=== PATIENT | male | born 1965 | race Caucasian/White ===

== ENCOUNTER 2021-12-03 14:39 | Inpatient (IN) | payer OTHER ==
[2021-12-03] MEDS ORDERED: MORPHINE 4 MG/ML SYR ONE ×3 (15:57→18:43)
[2021-12-03] MEDS ORDERED: ONDANSETRON 4 MG/2 ML VIAL ONE (15:57)
[2021-12-03 16:16] LABS: Absolute Lymphocytes (CBC) 1.9 K/uL (0.7-4.9); Hematocrit 42.7 % (39.6-49.0); Lymphocytes % 23.9 % (15.3-44.8)
[2021-12-03 16:38] LABS: Albumin 3.9 g/dL (3.4-5.0); Bilirubin Total 0.5 mg/dL (0.2-1.0); Potassium 3.7 mmol/L (3.5-5.1); Protein, Total 7.5 g/dL (6.4-8.2)
[2021-12-03] MEDS ORDERED: NA CHLORIDE 0.9% 1,000 ML ONE (16:41)
--- NOTE | 2021-12-03 17:20 | RAD REPORT ---
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 No oral contrast administered. All CT scans are performed using dose optimization technique as appropriate and may include automated exposure control or mA/KV adjustment according to patient size. FINDINGS: No suspicious findings in the lung bases. Liver shows fatty infiltration with no suspicious liver lesion identifiable. No portal vein abnormali ty. Gallbladder and biliary tree show no suspicious findings. No pancreatic abnormality. No splenomeg walter. A 13 millimeter low-density area medial spleen is probably an incidental cyst. Delete select Symmetric renal function is seen with no hydronephrosis or suspicious renal mass. No pyelonephritis o r acute parenchymal process. No bladder abnormalities. No adrenal abnormalities. No gastric dilatation gastric wall thickening. No acute small bowel finding. Appendix is normal. No s ignificant diverticulosis. Along the posterior left margin of the anus there is a 20 x 13 millimeter low-density collection. No air in this collection. No measurable edema or stranding in the adjacent p erirectal and perineum fat. No free air, free fluid or pneumatosis. No mass or bulky lymphadenopathy . No suspicious bony findings. IMPRESSION: Approximately 20 x 13 mm sized perianal abscess left posterior margin
[2021-12-03] MEDS ORDERED: Levofloxacin500mg IV 500 MG/100 ML BAG IV ONE (18:08)
[2021-12-03] MEDS ORDERED: METRONIDAZOLE 500mg IVPB 500 MG/100 ML BAG IV ONE (18:08)
--- NOTE | 2021-12-03 18:30 | EDPHYS ---
Physician Documentation [facility] Name: Wolf Potter Age: 55 yrs Sex: Male : 1965 Arrival Date: 12/03/2021 Time: 15:16 Bed 12 Private MD: ED Physician Vini Cool HPI: 12/03 16:09 This 55 yrs old Male presents to ER via Ambulatory with complaints of Rectal Pain. pm1 16:09 The patient presents to the emergency department with pain in the rectal area. Onset: pm1 The symptoms/episode began/occurred 1 week(s) ago. Context: the patient has no known special context relating to the rectal area complaint(s). Modifying factors: The symptoms are alleviated by nothing, The symptoms are aggravated by bowel movement, sitting position. Associate signs and symptoms: Pertinent negatives: abdominal pain, constipation, dysuria, fever. The patient has experienced a previous episode, approximately 8 years ago. The patient has been recently seen by a physician: earlier today, with similar presenting complaints, and was sent to the [facility] Emergency Department for further evaluation, Seen at [facility]. Historical: - Allergies: 15:25 Codeine; ld1 - Home Meds: 15:25 pantoprazole 20 mg oral TbEC 1 tab once daily [Active]; atorvastatin 40 mg oral tab 1 ld1 tab once daily [Active]; meloxicam 7.5 mg oral tab 1 tab once daily [Active]; - PMHx: 15:25 Hypercholesterolemia; Arthritis; Fibromyalgia; ld1 - PSHx: 15:25 None; ld1 - Immunization history:: Adult Immunizations up to date, Client reports having NOT received the Covid vaccine. - Social history:: Smoking status: Patient reports the use of cigarette tobacco products, denies chronic smoking, but will smoke occasionally, Patient uses alcohol, occasionally. ROS: 16:09 Constitutional: Negative for fever, chills, and weight loss, Cardiovascular: Negative pm1 for chest pain, palpitations, and edema, Respiratory: Negative for shortness of breath, cough, wheezing, and pleuritic chest pain. 16:09 Back: Negative for injury and pain, MS/Extremity: Negative for injury and deformity, Skin: Negative for injury, rash, and discoloration, Neuro: Negative for headache, weakness, numbness, tingling, and seizure. 16:09 Abdomen/GI: Positive for rectal pain, Negative for abdominal pain, nausea, vomiting, and diarrhea, hematemesis, black/tarry stool, rectal bleeding. 16:09 All other systems are negative. Exam: 16:09 Constitutional: This is a well developed, well nourished patient who is awake, alert, pm1 and in no acute distress. Head/Face: Normocephalic, atraumatic. 16:09 Back: No spinal tenderness. No costovertebral tenderness. Full range of motion. Skin: Warm, dry with normal turgor. Normal color with no rashes, no lesions, and no evidence of cellulitis. MS/ Extremity: Pulses equal, no cyanosis. Neurovascular intact. Full, normal range of motion. 16:09 Cardiovascular: Exam negative for acute changes, Rate: normal, Rhythm: regular, Pulses: no pulse deficits are appreciated, Heart sounds: normal, normal S1and S2. 16:09 Respiratory: Exam negative for acute changes, respiratory distress, shortness of breath. 16:09 Abdomen/GI: Inspection: obese Palpation: abdomen is soft and non-tender, in all quadrants, Rectal exam: hemorrhoid(s), are not appreciated, mass, that is moderate-sized, with tenderness, present at 9 o'clock. Fistula scar present at 6 o'clock, tenderness, that is moderate, the exam is chaperoned by the nurse. 16:09 Neuro: Exam negative for acute changes, Orientation: is normal, Mentation: is normal, Motor: is normal, moves all fours. Vital Signs: 15:22 BP 163 / 102; Pulse 90; Resp 18; Temp 97.6(O); Pulse Ox 100% on R/A; Weight 104.33 kg; ld1 Height 5 ft. 10 in. (177.80 cm); Pain 7/10; 16:50 BP 153 / 88; Pulse 88; Resp 18; Pulse Ox 100% on R/A; em6 18:21 BP 168 / 79; Pulse 84; Resp 18; Pulse Ox 100% on R/A; em6 19:24 BP 148 / 82; Pulse 80; Resp 18; Pulse Ox 100% on R/A; em6 15:22 Body Mass Index 33.00 (104.33 kg, 177.80 cm) ld1 MDM: 15:17 Patient medically screened. pm1 18:08 ED course: Last ate food last night and drank coffee at 0630. pm1 18:08 Data reviewed: vital signs. Data interpreted: Pulse oximetry: on room air is 100 %. pm1 Interpretation: normal. 18:28 Physician consultation: Arthur Boogie MD was called at 18:28, was contacted at 18:28, pm1 regarding consult, patient's condition, would like admission per Dr. Art Romero MD in the emergency department to see patient at 18:28. 12/03 15:43 Order name: CBC with Diff; Complete Time: 16:34 pm1 12/03 15:43 Order name: CMP; Complete Time: 16:42 pm1 12/03 15:43 Order name: Lipase; Complete Time: 16:42 pm1 12/03 16:33 Order name: CT Abd/Pelvis - IV Contrast Only; Complete Time: 18:03 pm1 12/03 18:30 Order name: SARS RAPID; Complete Time: 19:22 la1 12/03 15:43 Order name: IV Saline Lock; Complete Time: 16:08 pm1 12/03 15:43 Order name: Labs collected and sent; Complete Time: 16:08 pm1 12/03 16:33 Order name: NPO; Complete Time: 16:50 pm1 Administered Medications: 16:00 Drug: morphine 4 mg Route: IVP; Infused Over: 4 mins; Site: left antecubital; em6 16:30 Follow up: Response: No adverse reaction; RASS: Alert and Calm (0) em6 16:00 Drug: Zofran (Ondansetron) 4 mg Route: IVP; Site: left antecubital; em6 16:30 Follow up: Response: No adverse reaction em6 16:50 Drug: morphine 4 mg Route: IVP; Infused Over: 4 mins; Site: left antecubital; em6 17:29 Follow up: Response: No adverse reaction; RASS: Alert and Calm (0) em6 16:50 Drug: NS 0.9% 1000 ml Route: IV; Rate: 1000 ml; Site: left antecubital; em6 20:32 Follow up: Response: No adverse reaction; IV Status: Completed infusion; IV Intake: em6 1000ml 18:20 Drug: Flagyl (metroNIDAZOLE) 500 mg Volume: 100 ml; Route: IVPB; Rate: 200 ml/hr; em6 Infused Over: 30 mins; Site: left antecubital; 19:25 Follow up: Response: No adverse reaction; IV Status: Completed infusion; IV Intake: em6 100ml 18:45 Drug: morphine 4 mg Route: IVP; Infused Over: 4 mins; Site: left antecubital; em6 19:25 Follow up: Response: No adverse reaction; RASS: Alert and Calm (0) em6 18:50 Drug: LevaQUIN (levofloxacin) 500 mg Volume: 100 ml; Route: IVPB; Infused Over: 60 em6 mins; Site: left antecubital; 19:55 Follow up: Response: No adverse reaction; IV Status: Completed infusion; IV Intake: em6 100ml Disposition: 19:38 Co-signature as Attending Physician, Vini MORENO was immediately available on-site ms3 in the Emergency Department for consultation in the care of the patient.. Disposition Summary: 12/03/21 18:30 Hospitalization Ordered Hospitalization Status: Inpatient Admission pm1 Location: Telemetry/[facility] (Inpatient) pm1 Condition: Stable pm1 Problem: new pm1 Symptoms: have improved pm1 Bed/Room Type: Standard pm1 Provider: Bj Serrano(12/03/21 18:32) la1 Room Assignment: [facility](12/03/21 19:31) eb1 Diagnosis - Perianal Abscess pm1 Forms: - Medication Reconciliation Form pm1 - SBAR form pm1 Signatures: Dispatcher [employer] EDMin Gonzales FNP-C AUTOMATIC EQUIPMENT TECHNICIAN-Cla1 Hari Cooney NP ANCHOR [employer]ACK PULLER pm1 Linda Marx RN RN eb1 Vini Cool DO DO ms3 Zara Arellano RN RN ld1 Gerri Boogie, RN RN em6 Corrections: (The following items were deleted from the chart) 15:26 15:25 Allergies: No Known Allergies; ld1 ld1 18:32 18:30 Art Romero pm1 la1 19:31 18:30 pm1 eb1
--- NOTE | 2021-12-03 18:30 | ER ---
Nurse's Notes [facility] Name: Wolf Potter Age: 55 yrs Sex: Male : 1965 Arrival Date: 12/03/2021 Time: 15:16 Bed 12 Private MD: Diagnosis: Perianal Abscess Presentation: 12/03 15:22 Chief complaint:. Chief complaint: Patient states: Rectal pain - 1 week ago I ate ld1 something at [employer] that did not sit well with me. Diarrhea for a few days. I assumed it was a hemorrhoid - treated with over the counter meds, has not gotten better. Pt reports 8-10 years ago having a fistula - this pain is feeling similar. Coronavirus screen: At this time, the client does not indicate any symptoms associated with coronavirus-19. Ebola Screen: No symptoms or risks identified at this time. Initial Sepsis Screen: Does the patient meet any 2 criteria? No. Patient's initial sepsis screen is negative. Does the patient have a suspected source of infection? No. Patient's initial sepsis screen is negative. Risk Assessment: Do you want to hurt yourself or someone else? Patient reports no desire to harm self or others. Onset of symptoms was December 03, 2021. 15:22 Method Of Arrival: Ambulatory ld1 15:22 Acuity: MANDA 3 ld1 Triage Assessment: 15:25 General: Appears in no apparent distress. comfortable, Behavior is calm, cooperative, ld1 appropriate for age. Pain: Complains of pain in gluteal cleft Pain does not radiate. Pain currently is 7 out of 10 on a pain scale. Quality of pain is described as throbbing, Pain began suddenly, Is continuous. EENT: No signs and/or symptoms were reported regarding the EENT system. Neuro: Level of Consciousness is awake, alert, obeys commands, Oriented to person, place, time, situation. Cardiovascular: Capillary refill < 3 seconds Patient's skin is warm and dry. Respiratory: Airway is patent Respiratory effort is even, unlabored. GI: Abdomen is flat, non-distended. : No signs and/or symptoms were reported regarding the genitourinary system. Derm: No signs and/or symptoms reported regarding the dermatologic system. Musculoskeletal: No signs and/or symptoms reported regarding the musculoskeletal system. Historical: - Allergies: 15:25 Codeine; ld1 - Home Meds: 15:25 pantoprazole 20 mg oral TbEC 1 tab once daily [Active]; atorvastatin 40 mg oral tab 1 ld1 tab once daily [Active]; meloxicam 7.5 mg oral tab 1 tab once daily [Active]; - PMHx: 15:25 Hypercholesterolemia; Arthritis; Fibromyalgia; ld1 - PSHx: 15:25 None; ld1 - Immunization history:: Adult Immunizations up to date, Client reports having NOT received the Covid vaccine. - Social history:: Smoking status: Patient reports the use of cigarette tobacco products, denies chronic smoking, but will smoke occasionally, Patient uses alcohol, occasionally. Screenin:29 Abuse screen: Denies threats or abuse. Nutritional screening: No deficits noted. em6 Tuberculosis screening: No symptoms or risk factors identified. 16:09 Fall Risk IV access (20 points). Total Joel Fall Scale indicates No Risk (0-24 pts). em6 Assessment: 15:35 Reassessment: see triage assessment. em6 16:35 Reassessment: Patient appears in no apparent distress at this time. Patient and/or em6 family updated on plan of care and expected duration. Pain level reassessed. Patient is alert, oriented x 3, equal unlabored respirations, skin warm/dry/pink. 17:35 Reassessment: No changes from previously documented assessment. Patient and/or family em6 updated on plan of care and expected duration. Pain level reassessed. Patient is alert, oriented x 3, equal unlabored respirations, skin warm/dry/pink. 18:37 Reassessment: Patient and/or family updated on plan of care and expected duration. Pain em6 level reassessed. Patient is alert, oriented x 3, equal unlabored respirations, skin warm/dry/pink. Reassessment: provider notified of pain. new orders given. Pain: Complains of pain in buttocks and gluteal cleft Pain currently is 10 out of 10 on a pain scale. 19:40 Reassessment: Patient appears in no apparent distress at this time. No changes from em6 previously documented assessment. Patient and/or family updated on plan of care and expected duration. Pain level reassessed. Patient is alert, oriented x 3, equal unlabored respirations, skin warm/dry/pink. Vital Signs: 15:22 BP 163 / 102; Pulse 90; Resp 18; Temp 97.6(O); Pulse Ox 100% on R/A; Weight 104.33 kg; ld1 Height 5 ft. 10 in. (177.80 cm); Pain 7/10; 16:50 BP 153 / 88; Pulse 88; Resp 18; Pulse Ox 100% on R/A; em6 18:21 BP 168 / 79; Pulse 84; Resp 18; Pulse Ox 100% on R/A; em6 19:24 BP 148 / 82; Pulse 80; Resp 18; Pulse Ox 100% on R/A; em6 15:22 Body Mass Index 33.00 (104.33 kg, 177.80 cm) ld1 ED Course: 15:16 Patient arrived in ED. rg4 15:17 Hari Cooney NP is PHCP. pm1 15:17 Vini Cool DO is Attending Physician. pm1 15:25 Triage completed. ld1 15:25 Arm band placed on right wrist. ld1 15:29 Gerri Boogie, RN is Primary Nurse. em6 15:29 Bed in low position. Call light in reach. Side rails up X 1. Pulse ox on. NIBP on. Warm em6 blanket given. 16:00 Inserted saline lock: 20 gauge in left antecubital area, using aseptic technique. Blood em6 collected. 16:08 CBC with Diff Sent. em6 16:08 CMP Sent. em6 16:08 Lipase Sent. em6 16:37 Served as a nursing project coordinator during rectal exam. em6 17:09 CT Abd/Pelvis - IV Contrast Only In Process Unspecified. EDMS 18:29 Art Romero MD is Hospitalizing Provider. pm1 18:32 Bj Serrano MD is Hospitalizing Provider. la1 20:31 Patient admitted, IV remains in place. em6 Administered Medications: 16:00 Drug: morphine 4 mg Route: IVP; Infused Over: 4 mins; Site: left antecubital; em6 16:30 Follow up: Response: No adverse reaction; RASS: Alert and Calm (0) em6 16:00 Drug: Zofran (Ondansetron) 4 mg Route: IVP; Site: left antecubital; em6 16:30 Follow up: Response: No adverse reaction em6 16:50 Drug: morphine 4 mg Route: IVP; Infused Over: 4 mins; Site: left antecubital; em6 17:29 Follow up: Response: No adverse reaction; RASS: Alert and Calm (0) em6 16:50 Drug: NS 0.9% 1000 ml Route: IV; Rate: 1000 ml; Site: left antecubital; em6 20:32 Follow up: Response: No adverse reaction; IV Status: Completed infusion; IV Intake: em6 1000ml 18:20 Drug: Flagyl (metroNIDAZOLE) 500 mg Volume: 100 ml; Route: IVPB; Rate: 200 ml/hr; em6 Infused Over: 30 mins; Site: left antecubital; 19:25 Follow up: Response: No adverse reaction; IV Status: Completed infusion; IV Intake: em6 100ml 18:45 Drug: morphine 4 mg Route: IVP; Infused Over: 4 mins; Site: left antecubital; em6 19:25 Follow up: Response: No adverse reaction; RASS: Alert and Calm (0) em6 18:50 Drug: LevaQUIN (levofloxacin) 500 mg Volume: 100 ml; Route: IVPB; Infused Over: 60 em6 mins; Site: left antecubital; 19:55 Follow up: Response: No adverse reaction; IV Status: Completed infusion; IV Intake: em6 100ml Medication: 20:31 VIS not applicable for this client. em6 Intake: 19:25 IV: 100ml; Total: 100ml. em6 19:55 IV: 100ml; Total: 200ml. em6 20:32 IV: 1000ml; Total: 1200ml. em6 Outcome: 18:30 Decision to Hospitalize by Provider. pm1 20:31 Admitted to Tele accompanied by nurse, via wheelchair, room 415, Report called to [address] 20:31 Condition: stable 20:31 Instructed on the need for admit, Demonstrated understanding of instructions. 20:32 Patient left the ED. em6 Signatures: Dispatcher [employer] EDMS Min Crisostomo, ISATUC THREADING MACHINE OPERATOR-Cla1 Hari Cooney, ELODIA CLOTH DESIGNER pm1 Violette Cardona rg4 Zara Arellano RN RN ld1 Gerri Boogie RN RN em6 Corrections: (The following items were deleted from the chart) 15:26 15:25 Allergies: No Known Allergies; ld1 ld1 19:25 18:50 Response: No adverse reaction em6 em6
[2021-12-03 19:20] LABS: SARS-CoV-2 Antigen Rapid Res Negative (Negative)
--- NOTE | 2021-12-03 19:32 | P.HP ---
Certification for Inpatient Patient admitted to: Inpatient With expected LOS: >2 Midnights Patient will require the following post-hospital care: None Practitioner: I am a practitioner with admitting privileges, knowledge of patient current condition, hospital course, and medical plan of care. Services: Services provided to patient in accordance with Admission requirements found in Title 42 Section 412.3 of the Code of Federal Regulations Patient History Date of Service: 12/03/21 Reason for admission: Perirectal abscess History of Present Illness: 55-year-old male with history of hyperlipidemia, arthritis, fibromyalgia, PTSD presents the emergency department for rectal pain/discomfort. He reports symptoms ongoing over the course last 1 week his labs were significant for glucose 154 CT of the abdomen pelvis with IV contrast was performed which showed approximately 20 x 13 mm sized perianal abscess left posterior margin. Patient was evaluated by general surgery in the emergency department and recommends admission to the hospitalist service and surgical management tomorrow. - Past Medical/Surgical History -: Arthritis -: Fibromyalgia -: PTSD -: Hyperlipidemia -: Bilateral knee scopes -: Ankle surgery -: Biceps tendon repair -: Rotator cuff surgery Psychosocial/ Personal History: Patient is retired, lives at home with his - Family History Family History: Reviewed- Non-Contributory - Social History Smoking Status: Never smoker Alcohol use: Yes CD- Drugs: No Caffeine use: Yes Place of Residence: Home Review of Systems 10-point ROS is otherwise unremarkable Gastrointestinal: Other (Rectal pain/swelling) Physical Examination - Physical Exam General: Alert, In no apparent distress, Oriented x3 HEENT: Atraumatic, PERRLA, Mucous membr. moist/pink, EOMI, Sclerae nonicteric Neck: Supple, 2+ carotid pulse no bruit, No LAD, Without JVD or thyroid abnormality Respiratory: Clear to auscultation bilaterally, Normal air movement Cardiovascular: Regular rate/rhythm, Normal S1 S2 Capillary refill: <2 Seconds Gastrointestinal: Normal bowel sounds, No tenderness Musculoskeletal: No tenderness Integumentary: No rashes Neurological: Normal speech, Normal strength at 5/5 x4 extr, Normal tone, Normal affect - Studies Laboratory Data (last 24 hrs) 12/03/21 16:04: Sodium 137, Potassium 3.7, BUN 9, Creatinine 1.13, Glucose 154 H, Total Bilirubin 0.5, AST 14 L, ALT 39, Alkaline Phosphatase 92, Lipase 122 12/03/21 16:04: WBC 7.80, Hgb 15.0, Hct 42.7, Plt Count 264 Male Exam - Male Exam Anus & perineum: Other (Parirectal abscess noted) Assessment and Plan - Plan Assessment: 20 x 13 mm perirectal abscess left posterior margin PTSD Arthritis/fibromyalgia Hyperlipidemia Plan: 20 x 13 mm perirectal abscess left posterior margin: General surgery saw patient in the emergency department plan for operative intervention tomorrow. Continue antibiotics Levaquin/Flagyl. N.p.o. for midnight. As needed pain medications and antiemetics. PTSD: Continue home medications when appropriate. Arthritis/fibromyalgia: Continue home medications when appropriate. Hyperlipidemia: Continue home medications when appropriate. DVT PPX: SCD Code status: Full Discharge Plan: Home Plan to discharge in: 48 Hours - Advance Directives Does patient have a Living Will: No Does patient have a Durable POA for Healthcare: No - Code Status/Comfort Care Code Status Assessed: Yes (Full code) Critical Care: No Time Spent Managing Pts Care (In Minutes): 55
[2021-12-03] MEDS ORDERED: ONDANSETRON 4 MG/2 ML VIAL IV PRN (20:44)
--- NOTE | 2021-12-03 20:50 | CON ---
Date of Consultation: 12/03/2021 Reason For Service: Perianal abscess. History Of Present Illness: This is the case of a male, who comes to the ER today complaining of per ianal tenderness. He stated that he has no drainage and he does not know exactly what happened there . He has some history of constipation on and off. He stated that many years ago he had surgery in s imilar area due to a fistula. At this moment, he is feeling tenderness but he does not see any openi ng. His pain was getting worse today, he decided to come to the ER. Imaging of the area was done co nfirming the abscess and a surgical consult was obtained for drainage. Past Medical History: Includes fibromyalgia, arthritis, hypercholesterolemia. Past Surgical History: What he described above was a perianal procedure due to possible fistula or a bscess, he is not sure. Social History: Heavy smoker of cigarette and he was advised the importance of smoking cessation, an d he uses alcohol occasionally. Medications: Include meloxicam and also cholesterol medication. Family History: Noncontributory. Review of Systems: No melena. No hematochezia. No trauma to the area. Patient advised the importance of colonoscopies . Physical Examination: General: Patient is awake, alert. HEENT: Pupils are equal and reactive. Anicteric. Neck: Supple. Chest: Clear. Heart: S1, S2. Abdomen: Soft and depressible. No guarding or rebound or peritoneal signs. Genitourinary: Perianal region shows tenderness. Examination here in the ER is difficult due to ten derness. So, we are going to wait until we have examination under anesthesia to try to find etiology , if possible, of that abscess. His perianal bulging present. Extremities: Good capillary refill. Laboratory Data: Blood work shows WBC count of 7.8, hemoglobin of 15, potassium 3.7. Glucose 154. CAT scan of the abdomen and pelvis interpreted by Dr. Parks as a 20 x 30 mm perianal abscess, left posterior margin. Assessment: This is a 55-year-old patient with perianal pain, perianal abscess. The benefits, alter natives, and risks of examination under anesthesia, anoscopy, proctoscopy, and incision and drainage of perianal abscess were fully explained which include, but not limited to, infection, bleeding, anna ge to adjacent structures, anesthesia complications, perianal pain, anal stricture, anal incontinence , ME, and even . He also understands he may require wound care. He will be kept n.p.o. after m idnight and then proceed accordingly. AGNIESZKA/KATINA Voice ID: [id number] Report ID: [id number]
[2021-12-03] MEDS: NA CHLORIDE 0.9% 1,000 ML IV SCH (21:03)
[2021-12-03 22:13] VITALS: BMI 33.0
[2021-12-03] MEDS: MORPHINE 2 MG/ML SYR IV PRN (22:14)
[2021-12-04] MEDS: METRONIDAZOLE 500mg IVPB 500 MG/100 ML BAG IV SCH ×4 (00:01→16:26)
[2021-12-04] MEDS: MORPHINE 2 MG/ML SYR IV PRN ×2 (01:48→13:08)
[2021-12-04 03:52] LABS: Absolute Lymphocytes (CBC) 1.5 K/uL (0.7-4.9); Hematocrit 37.7 % (39.6-49.0); Lymphocytes % 24.3 % (15.3-44.8); MCV 88.4 fL (80-100); MPV 8.5 fL (7.6-11.3); RBC Red Blood Cell Count 4.27 M/uL (4.33-5.43)
[2021-12-04 04:02] LABS: Potassium 4.3 mmol/L (3.5-5.1)
[2021-12-04] MEDS ORDERED: MORPHINE 2 MG/ML SYR IV ONE (04:44)
[2021-12-04] MEDS: NA CHLORIDE 0.9% 1,000 ML IV SCH (06:44)
[2021-12-04] MEDS ORDERED: PNEUMOCOCCAL VACCINE 0.5 ML IMVAC ONE (08:00)
[2021-12-04] MEDS ORDERED: INFLUENZA VACCINE (for 6+ mo) 0.5 ML DOSE IMVAC ONE (08:00)
[2021-12-04] MEDS ORDERED: KETAMINE HCL 500 MG/5 ML VIAL ONE (08:41)
[2021-12-04] MEDS ORDERED: propofoL 200 MG/20 ML VIAL IV ONE (08:41)
[2021-12-04] MEDS ORDERED: MIDAZOLAM HCL 2 MG/2 ML INJ ONE (08:41)
[2021-12-04] MEDS ORDERED: FENTANYL CITR 100 MCG/2 ML ONE (08:41)
[2021-12-04] MEDS ORDERED: ONDANSETRON 4 MG/2 ML VIAL ONE (08:42)
[2021-12-04] MEDS ORDERED: dexAMETHasone 10 MG/ML VIAL ONE (08:42)
[2021-12-04] MEDS ORDERED: KETOROLAC 30 MG/ML INJ ONE (08:42)
[2021-12-04] MEDS ORDERED: LIDOCAINE 2% MPF 5 ML VIAL ONE (08:42)
[2021-12-04] MEDS ORDERED: Ringers Lactate 1,000 ML IV ONE (08:59)
[2021-12-04] MEDS ORDERED: Levofloxacin500mg IV 500 MG/100 ML BAG IV SCH (09:00)
[2021-12-04] MEDS ORDERED: BUPIVACAINE 0.5% PF 10 ML VIAL ONE (09:10)
--- NOTE | 2021-12-04 10:27 | P.BOP ---
Preoperative diagnosis: perianal abscess Postoperative diagnosis: same Primary procedure: EUA, anoscopy, rigid proctoscopy, I &D perianal abscess Estimated blood loss: <10cc Specimen: pus Findings: abscess Anesthesia: General Complications: None Drain(s): Other (1/" iodoform) Transferred to: Recovery Room Condition: Good
[2021-12-04] MEDS ORDERED: NS 0.9% VIAL 10 ML ONE (10:40)
[2021-12-04] MEDS ORDERED: TRAMADOL 37.5mg/APAP 325mg PER TAB PO PRN (10:44)
[2021-12-04 11:52] VITALS: O2SAT 98
[2021-12-04] MEDS: INSULIN -REGULAR HUMAN 50 UNIT/0.5 ML ML SQ SCH ×2 (16:27→17:15)
--- NOTE | 2021-12-04 16:49 | P.DS ---
Admission Date: 12/03/21 Discharge Date: 12/04/21 Disposition: ROUTINE DISCHARGE Reason for Admission: Perianal abscess Consultations: General Surgery - Dr. Boogie Brief History of Present Illness: 55-year-old male with history of hyperlipidemia, arthritis, fibromyalgia, PTSD presents the emergency department for rectal pain/discomfort. He reports symptoms ongoing over the course last 1 week his labs were significant for gluc ose 154 CT of the abdomen pelvis with IV contrast was performed which showed approximately 20 x 13 mm sized perianal abscess left posterior margin. Hospital Course: Problem List 20 x 13 mm perianal abscess left posterior margin; now s/p I&D PTSD Arthritis/fibromyalgia Hyperlipidemia NIDDM2, new diagnosis Patient presented with perianal abscess. He underwent I&D by Dr. Boogie. He was treated with IV empiric antibiotics. Discharged home with 7 days of Augmentin. Pain medication sent. Remove iodoform packing tomorrow and no need to repack, just cover incision with triple abx ointment and gauze. SItz bath 3x a day after tomorrow. Patient was noted to have high blood glucose levels. Hgb A1c was checked and found to be elevated at 8.8, consistent with a diagnosis of diabetes. Patient was counselled on lifestyle modifications - diet/exercise. Prescribed metformin 500mg twice daily. Check glucose levels at least once day - fasting in the morning. Follow up with PCP within 1 week. Follow up with Dr. Boogie in 1-2 weeks Vital Signs/Physical Exam: Temp Pulse Resp BP Pulse Ox 98.1 F 83 16 125/67 96 12/04/21 16:00 12/04/21 16:00 12/04/21 16:00 12/04/21 16:00 12/04/21 16:00 General: Alert, In no apparent distress, Oriented x3 HEENT: EOMI, Sclerae nonicteric Respiratory: Clear to auscultation bilaterally, Normal air movement Cardiovascular: No edema, Regular rate/rhythm Gastrointestinal: Soft and benign, No tenderness Integumentary: Other (perianal abscess with surgical dressing c/d/i) Neurological: Normal speech, Normal strength at 5/5 x4 extr, Normal affect Laboratory Data at Discharge: WBC 6.10 K/uL (4.3-10.9) 12/04/21 02:56 Hgb 12.9 g/dL (13.6-17.9) L D 12/04/21 02:56 Hct 37.7 % (39.6-49.0) L 12/04/21 02:56 Plt Count 220 K/uL (152-406) 12/04/21 02:56 Sodium 136 mmol/L (136-145) 12/04/21 02:56 Potassium 4.3 mmol/L (3.5-5.1) D 12/04/21 02:56 BUN 11 mg/dL (7-18) 12/04/21 02:56 Creatinine 1.23 mg/dL (0.55-1.3) 12/04/21 02:56 Glucose 278 mg/dL (74-106) H 12/04/21 02:56 Total Bilirubin 0.5 mg/dL (0.2-1.0) 12/03/21 16:04 AST 14 U/L (15-37) L 12/03/21 16:04 ALT 39 U/L (12-78) 12/03/21 16:04 Alkaline Phosphatase 92 U/L (45-117) 12/03/21 16:04 Lipase 122 U/L (73-393) 12/03/21 16:04 Home Medications: Atorvastatin Calcium [Lipitor*] 20 mg PO DAILY 12/03/21 Meloxicam, Submicronized [Meloxicam] 10 mg PO DAILY 12/03/21 Pantoprazole [Protonix Tab*] 40 mg PO DAILY 12/03/21 Amox/Clavulanate [Augmentin 875-125 Tab] 1 each PO BID 7 Days #14 tab 12/04/21 Hydrocodone 5/APAP 325 [[place] 5/325] 1 tab PO Q8H PRN #10 tab 12/04/21 Metformin HCl 500 mg PO BID 30 Days #60 tab 12/04/21 New Medications: Amox/Clavulanate [Augmentin 875-125 Tab] 1 each PO BID 7 Days #14 tab Metformin HCl 500 mg PO BID 30 Days #60 tab Hydrocodone 5/APAP 325 [[place] 5/325] 1 tab PO Q8H PRN #10 tab PRN Reason: Pain Physician Discharge Instructions: Patient presented with perianal abscess. He underwent I&D by Dr. Boogie. He was treated with IV empiric antibiotics. Discharged home with 7 days of Augmentin. Pain medication sent. Remove iodoform packing tomorrow and no need to repack, just cover incision with triple abx ointment and gauze. SItz bath 3x a day after tomorrow. Patient was noted to have high blood glucose levels. Hgb A1c was checked and found to be elevated at 8.8, consistent with a diagnosis of diabetes. Patient was counselled on lifestyle modifications - diet/exercise. Prescribed metformin 500mg twice daily. Check glucose levels at least once day - fasting in the morning. Follow up with PCP within 1 week. Follow up with Dr. Boogie in 1-2 weeks Followup: Arthur Boogie MD [ACTIVE - CAN ADMIT] - NONE,NONE [Primary Care Provider] - Time spent managing pt's care (in minutes): 45
--- NOTE | 2021-12-04 16:56 | OP ---
Date of Procedure: 12/04/2021 Surgeon: Arthur Boogie MD Preoperative Diagnosis: Perianal abscess. Postoperative Diagnosis: Perianal abscess. Procedures: Examination under anesthesia, anoscopy, rigid proctoscopy, incision and drainage of ken anal abscess. Estimated Blood Loss: Less than 10 mL. Specimen: Pus finding abscess. Anesthesia: General plus local. Packing: Iodoform quarter of an inch. Indication: This is the case of a male, who comes to us with perianal abscess. The benefits, altern atives, and risks of EUA, anoscopy, proctoscopy, incision and drainage of perianal abscess were discu ssed, which include, but not limited to infection, bleeding, damage to adjacent structures, anesthesi a complication, anal stricture, incontinence, recurrence, MD, and even . He also understands th is may not relieve any symptoms. He might need more than one surgical intervention. He understood, signed a consent. He was explained also perianal abscess is present, although the etiology of that i s unknown. We encouraged him to follow with his satellite tv technician for his colonoscopies. We also l earned that in the past he had something done by colorectal somewhere that he claimed it was an absce ss, not sure about the fistula. We encouraged him to see his colorectal surgeon again since during t his surgery, we may not find the etiology of this abscess, although we will take care of the infectio n and the abscess at this moment. Procedure In Detail: The patient was brought to the operating room, placed in supine position. Anes thesia was done without complication. A time-out was called. The patient was placed in lithotomy po sition with proper protection. The perianal area was prepped and draped in the usual sterile fashion . After that, I proceeded to do rectal examination and then followed with a rigid proctoscopy all th e way to about 7 cm. We cannot advance anymore due to large amount of stool present. The scope was removed. Then, we proceeded to put an anoscope with a window on the side that helped us once again t o identify the abscess location, although we did not see any connection to the rectum at this moment. At that moment, I proceeded then to put an 18-gauge needle in the area we believe with the maximum fluctuance and we found the abscess from there, made an incision in a cruciate fashion. The perianal abscess was identified. Loculations were opened, these irrigated, cultures were done and then we ob tained hemostasis after irrigation and also put some local anesthetic and then packed the area with i odoform quarter of an inch. The patient tolerated the procedure well. The anoscope was removed. Th e patient was sent to recovery in stable condition. AGNIESZKA/KATINA Voice ID: [id number] Report ID: [id number]
[2021-12-04] MEDS ORDERED: METFORMIN HCL 500 MG TAB PO ONE (18:00)
[2021-12-04] MEDS ORDERED: INSULIN -REGULAR HUMAN 50 UNIT/0.5 ML ML IV ONE (18:41)
[2021-12-04 19:46] VITALS: BP 120/63; TEMP 97.7
== END 2021-12-04 19:55 | disposition home or self-care (01) | DRG 349 ==
LOC: ER 14:39 → ERHOLD 19:13 → 4TH 20:06
PROVIDERS: ADMIT Hospitalist; ATTEND Hospitalist
PROC: 0D9Q8ZZ Drainage of Anus, Via Natural or Artificial Opening Endoscopic (ICD-10-PCS; principal; 2021-12-04 09:30)
DX: K61.0 Anal abscess (principal); M79.7 Fibromyalgia; E78.5 Hyperlipidemia, unspecified; F43.10 Post-traumatic stress disorder, unspecified; M19.90 Unspecified osteoarthritis, unspecified site; F17.210 Nicotine dependence, cigarettes, uncomplicated; Z88.5 Allergy status to narcotic agent; Z79.84 Long term (current) use of oral hypoglycemic drugs; Z79.899 Other long term (current) drug therapy; Z28.310 Unvaccinated for COVID-19; Z20.822 Contact with and (suspected) exposure to COVID-19
CPT/HCPCS: 36415; 74177; 80048; 80053; 82947; 83036; 83690; 85025; 87070; 87075; 87077; 87186; 87205; 87811; 96361; 96365; 96375; 99285; A4216; J1100; J1815; J2001; J2250; J2270; J2405; J2704; J3010; J7030; J7120; Q9967

== ENCOUNTER 2022-01-14 13:13 | Emergency (ER) | payer OTHER ==
--- OUTSIDE RECORDS SUMMARY | 2022-01-14 13:18 | XMS REPORT | Continuity of Care Document ---
:1965 Author Organization [facility] t Address [facility] [place] [address] Care Team Providers Name Role [place], [place] TYSHAWN [facility] Primary Care Physician Unavailable Champion_P Attending Clinician Unavailable SEDA LYN Attending Clinician Unavailable SEDA LYN Attending Clinician Unavailable 1, [facility] Attending Clinician Unavailable Seda Lyn MD Attending Clinician Doctor Unassigned, [place] Attending Clinician Unavailable Only, [facility] Test Attending Clinician Unavailable Tyshawn Tian MD Attending Clinician TYSHAWN TIAN Attending Clinician Unavailable JUSTIN FUNEZ Attending Clinician Unavailable Clarissa Child Attending Clinician Alex Bills Attending Clinician Dwayne Molina Attending Clinician Champion_P Admitting Clinician Unavailable Payers Payer Name Policy Type Policy Number Effective Date Expiration Date Armando dennis [facility] 11 [id number] 2019 [facility] 00:00:00 [facility] [id number] REGION 4 WPS - [id number] - OVERSEAS - ACTIVE DUTY PERSONNEL [facility] [id number] 2021 00:00:00 Problems Condition Condition Condition Status Onset Resolution Last Treating Co mments Source Name Details Category Date Date Treatment Clinician Date Induration Induration Problem Active 2021-02 [place] penis Penis 0-20 [facility] plastica Plastica 00:00: Urolog y 00 Primary Primary Problem Active 2021-02 Jones erectile Erectile 0-20 [facility] dysfunctio Dysfunctio 00:00: Ur ology n n 00 Screening Screening Problem Active 2021-02 Samuel ston for for 0-20 [facility] malignant Malignant 00:00: Urol ogy neoplasm Neoplasm 00 of of prostate Prostate Bulging Bulging Disease Active Methodi lumbar lumbar 10-19 st disc disc 00:00: Hospita 00 l DELROY DELROY Disease Active Overview: Method i (obstructi (obstructi 10-[address] ve sleep ve sleep 00:00: g of this Hos yvan apnea) apnea) 00 note l might be different from the original. due for new sleep study Chronic Chronic Disease Active Overview: Meth mindy post-traum post-traum 10-[address] atic atic 00:00: g of this Hospita stress stress 00 note l disorder disorder might be (PTSD) (PTSD) different after after from the original. combat combat stable on medicatio ns Deviated Deviated Disease Active Overview: Me thodi septum septum 10-[address] 00:00: g of this Hospita 00 note l might be different from the original. referral to ENT-may help with sleep issues Heartburn Heartburn Disease Active Overview: Methodi [address] 00:00: g of this Hospita 00 note l might be different from the original. doing very well on protonix D29.4 - D29.4 - Diagnosis Active 2018-022018-11-18 Memoria BENIGN BENIGN 0-09 11:18:00 l NEOPLASM NEOPLASM 00:01: Davin barragan OF SCROTUM OF SCROTUM 00 Active 11/16/2018 [facility] COUGH COUGH Diagnosis Active 2018-05-26 Mem oria Active 05-26 14:17:00 l 05/26/2018 00:00: Davin barragan [address] R05 - R05 - Diagnosis Active 2017-022018-02-11 Mem oria COUGH COUGH 03-11 16:19:00 l Active 00:01: Rafael 01/08/2018 00 [facility] [place] CHEST PAIN CHEST Diagnosis Active 2014-10-19 Memoria PAIN 10-12 08:51:00 l Active 00:00: Virgil 10/12/2014 00 [facility] R SHOULDER R Diagnosis Active 2011-06-22 Memoria SHOULDER 05-20 10:26:00 l Active 08:00: Vir[place] 05/21/2011 00 [facility] R SHLD Diagnosis Active 2011-09-25 Me moria Active 05-20 08:43:00 l 05/21/2011 08:00: Davin n [facility] 00 [place] Depressive Depressiv Problem Active 2018-11-19 Memoria disorder e disorder 22:46:35 l (disorder) (disorder) He rmann Active Problem 11/19/2018 OPID [facility] Pneumonia Pneumonia Problem Active 2018-11-19 Memoria (disorder) (disorder) 22:46:35 l Active Rafael Problem 11/19/2018 OPID [facility] [place] Vasectomy Vasectomy Problem Active 2018-11-19 Memoria (procedure (procedure 22:46:35 l ) ) Active Rafael Problem 11/19/2018 OPID [facility] [place] Depression Depressio Problem Active 2012-03-02 Memoria n Active 10:31:10 l Problem [place] 03/02/2012 [place] Pneumonia Problem Active 2012-03-02 Me moria Pneumonia 10:31:10 l Active Rafael Problem 03/02/2012 [place] Vasectomy Vasectomy Problem Active 2012-03-02 Memoria Active 10:31:10 l Problem Rafael 03/02/2012 [place] SHOULDER SHOULDER Diagnosis Active 2011-11-20 Memoria PAIN PAIN 13:15:00 l [facility] Diagnosis Active 2011-10-29 Mem oria SHOULDER SHOULDER 14:48:00 l [facility] SHOULDER Diagnosis Active 2012-01-29 Memoria S/P S/P Active 11:02:00 l [facility] SHLD SHLD Diagnosis Active 2012-02-26 Mem oria Active 15:38:00 l [facility] [place] COUGH FOR COUGH Diagnosis Active 2012-02-29 Memoria 4 WKS FOR 4 WKS 15:58:00 l Active [facility] No known No known Disease Unive rs active active ity of problems problems [facility] History of Past Illness Condition Condition Condition Status Onset Resolution Last Treating Co mments Source Name Details Category Date Date Treatment Clinician Date Cough Cough Problem 2017-2018-07-24 2018-07-24 M emoria 01/08/201803-11 11:21:08 11:21:08 l 07/24/2018 10:26: Davin barragan OPID 16 [place] Discharge Discharge Problem 2014-2014-10-14 [facility]: Diagnosis: 10-11 06:57:36 06:57:36 l Chest pain Chest pain 05:00: He otto 00 5 10/14/2014 [facility] Allergies, Adverse Reactions, Alerts Allergy Allergy Status Severity Reaction(s) Onset Inactive Treating Comm ents Source Name Type Date Date Clinician Codeine Propensi Active Itching Univer s ty to 04-16 ity of adverse 00:00: [place] reaction 00 Medical s Branch CODEINE DRUG Active ITCHING Univers INGREDI 309 ity of 00:00: [place] [address] Medical Branch No Known DA Active U [facility] Allergie 9-21 [place] s 00:00: [address] No Known DA Active U 2004- [facility] Contrast 2-27 [place] Allergie 00:00: [address] No Known DA Active U 2004- [facility] Drug 2-27 [place] Allergie 00:00: [address] No Known DA Active U 2004- [facility] Food 2-27 [place] Allergie 00:00: [address] No Known DA Active U 2004- [facility] Other 2-27 [place] Allergie 00:00: [address] Family History Family Member Diagnosis Comments Start Date Stop Date Source Natural brother COPD [facility] Natural brother Diabetes [facility] Natural brother Motor Vehicle [facility] Acc[facility] Natural mother COPD [facility] Social History Social Habit Start Date Stop Date Quantity Comments Source Exposure to 2021-03-17 2021-04-16 Not sure University of SARS-CoV-2 00:00:00 08:40:00 [facility] Tobacco use and 2021-04-16 2021-04-16 Never used Universit y of exposure 00:00:00 00:00:00 [facility] Alcohol intake 2020-04-18 2020-04-18 Current drinker [facility] 00:00:00 00:00:00 of alcohol (finding) [birth year] [facility] 00:00:00 00:00:00 Smoking Status Start Date Stop Date Source Never Smoker Geismar Morgan Alexis grantmeliaelias Medications Ordered Filled Start Stop Current Ordering Indication Dosage Frequency Signature Comments Components Source Medication Medication Date Date Medication? Clinician (SIG) Name Name No known No Univers medications 3-09 ity of 11:05: [address] No known No Univers medications 3-09 ity of 11:05: [address] No known 2021- No Univers medications 3-09 ity of 11:05: [address] No known 2021- No Univers medications 3-09 ity of 11:05: [address] No known 2021-0 No Univers medications 3-09 ity of 11:05: [address] No known 2021-0 No Univers medications 3-09 ity of 11:05: [address] No known 2021-0 No Univers medications 3-09 ity of 11:05: [address] FLUoxetine 2021- No 80mg QD Take 2 Meth mindy (PROzac) 40 10-17-[address] MG capsule 00:00: 04:59 (80 mg [facility] :00 total) by l mouth daily. FLUoxetine 2021- No 80mg QD Take 2 Meth mindy (PROzac) 40 10-17 09-[address] MG capsule 00:00: 04:59 (80 mg [facility] 00 :00 total) by l mouth daily. pantoprazol Yes TAKE ONE M ethodi e 8-31 (1) st (PROTONIX) 00:00: TABLET(S) Ho spita 40 MG EC 00 BY MOUTH l tablet ONCE A DAY. pantoprazol Yes TAKE ONE M ethodi e 8-31 (1) st (PROTONIX) 00:00: TABLET(S) Ho spita 40 MG EC 00 BY MOUTH l tablet ONCE A DAY. busPIRone Yes [id number] 15mg Q.[id number] Take 1 Methodi (BUSPAR) 15 6-04 [id number] tablet (15 st MG tablet 00:00: 3D mg total) Hos yvan 00 by mouth 3 l (three) times a day. busPIRone Yes [id number] 15mg Q.[id number] Take 1 Methodi (BUSPAR) 15 6-04 [id number] tablet (15 st MG tablet 00:00: 3D mg total) Hos yvan 00 by mouth 3 l (three) times a day. HYDROcodone 0 Yes [id number] 1{tbl} Q6H Take 1 M ethodi -acetaminop 3-[address] [employer] ([employer]) 08:07: mouth Hospi ta 10-325 mg 39 every 6 l per tablet (six) hours as needed for moderate pain .acute pain. HYDROcodone Yes [id number] 1{tbl} Q6H Take 1 M ethodi -acetaminop 3-[address] hen ([employer]) 08:07: mouth Hospi ta 10-325 mg 39 every 6 l per tablet (six) hours as needed for moderate pain .acute pain. lamoTRIgine Yes 200mg QD Take 1 Met hodi (LaMICtal) 3-[address] 200 MG 00:00: (200 mg Hospita tablet 00 total) by l mouth daily. lamoTRIgine 0 Yes 200mg QD Take 1 Met hodi (LaMICtal) 3-[address] 200 MG 00:00: (200 mg Hospita tablet 00 total) by l mouth daily. tadalafil 2019-0 Yes TAKE ONE Meth mindy (ADCIRCA) 09-07 (1) st 20 mg 00:00: TABLET(S) Hospita tablet 00 BY MOUTH l PRIOR TO INTERCOURS E. tadalafil 2019-0 Yes TAKE ONE Meth mindy (ADCIRCA) 09-07 (1) st 20 mg 00:00: TABLET(S) Hospita tablet 00 BY MOUTH l PRIOR TO INTERCOURS E. Ketorolac 2014-0 No 4 days Claire tavarez 10-11 l 15:52: MEDICATION Rafael 00 WASTE Product Size: 30 mg Product Wasted: ___ mg Ketorolac No 4 days Memor ia 10-11 l 15:52: MEDICATION WASTE Product Size: 30 mg Product Wasted: ___ mg Trazodone Yes PO, 0 Memoria 10-11 Refill(s) l 15:29: Trazodone Yes PO, 0 Memoria 10-11 Refill(s) l 15:29: atorvastati atorvastati No atorvastat [place] n n in [facility] Multi Multi No Multi [place] Vitamin Vitamin Vitamin [facility] pantoprazol pantoprazol No pantoprazo [place] e 40 mg e 40 mg le 40 mg [facility] tablet,cade tablet,cade tablet,del Urology yed release yed release ayed TAKE ONE TAKE ONE release (1) (1) TAKE ONE TABLET(S) TABLET(S) (1) BY MOUTH BY MOUTH TABLET(S) ONCE A DAY. ONCE A DAY. BY MOUTH ONCE A DAY. atorvastati atorvastati No atorvastat [place] n n in [facility] hydrocodone hydrocodone No hydrocodon Jones 5 5 e 5 [facility] mg-acetamin mg-acetamin mg-acetami Urology ophen 325 ophen 325 nophen 325 mg tablet mg tablet mg tablet TAKE ONE TAKE ONE TAKE ONE (1) (1) (1) TABLET(S) TABLET(S) TABLET(S) BY MOUTH BY MOUTH BY MOUTH EVERY EIGHT EVERY EIGHT EVERY HOURS HOURS EIGHT NEEDED FOR NEEDED FOR HOURS PAIN. PAIN. NEEDED FOR PAIN. metformin metformin No metformin [place] 500 mg 500 mg 500 mg [facility] tablet TAKE tablet TAKE tablet Urology 1 TABLET BY 1 TABLET BY TAKE 1 MOUTH 2 MOUTH 2 TABLET BY TIMES DAILY TIMES DAILY MOUTH 2 NEEDED NEEDED TIMES DAILY NEEDED Multi Multi No Multi [place] Vitamin Vitamin Vitamin [facility] pantoprazol pantoprazol No pantoprazo [place]ismar e 40 mg e 40 mg le 40 mg [facility] tablet,cade tablet,cade tablet,del Urology yed release yed release ayed TAKE ONE TAKE ONE release (1) (1) TAKE ONE TABLET(S) TABLET(S) (1) BY MOUTH BY MOUTH TABLET(S) ONCE A DAY. ONCE A DAY. BY MOUTH ONCE A DAY. Tri-Mix Tri-Mix No Tri-Mix [place] (papaver-ph (papaver-ph (papaver-p [facility] entol-PGE1) entol-PGE1) hentol-PGE Urology 150 mg-5 150 mg-5 1) 150 mg-50 mcg mg-50 mcg mg-5 mg-50 intracavern intracavern mcg osal soln osal soln intracaver Inject 0.5 Inject 0.5 nosal soln cc as cc as Inject 0.5 directed directed cc as into penis into penis directed for for into penis erection no erection no for more than more than erection once per once per no more day. day. than once per day. Vital Signs Vital Name Observation Time Observation Value Comments Source BP Systolic 2021-12-11 00:00:00 158 mm[Hg] [facility] Body Weight 2021-12-11 00:00:00 230 [lb_av] [facility] BP Diastolic 2021-12-11 00:00:00 98 mm[Hg] [facility] Height 2021-12-11 00:00:00 70 [in_i] [facility] BMI (Body Mass 2021-12-11 00:00:00 33 kg/m2 [place] [facility] Index) Urology BP Diastolic 2021-11-27 00:00:00 74 mm[Hg] [facility] Height 2021-11-27 00:00:00 70 [in_i] [facility] BMI (Body Mass 2021-11-27 00:00:00 33 kg/m2 [place] [facility] Index) Urology BP Systolic 2021-11-27 00:00:00 134 mm[Hg] [facility] Body Weight 2021-11-27 00:00:00 230 [lb_av] [facility] Systolic blood 2021-04-16 17:03:00 151 mm[Hg] [facility] Diastolic blood 2021-04-16 17:03:00 101 mm[Hg] [facility] Heart rate 2021-04-16 17:01:00 83 /min [facility] Body height 2021-04-16 17:01:00 177.8 cm [facility] Body weight 2021-04-16 17:01:00 107.049 kg [facility] BMI 2021-04-16 17:01:00 33.86 kg/m2 [facility] Oxygen saturation 2021-04-16 17:01:00 96 /min [facility] in Arterial blood Medical Br anch by Pulse oximetry Weight 2014-10-19 14:08:[address] [facility] [place] BMI Calculated 2014-10-19 14:08:00 Memori al [place] Height 2014-10-19 14:08:00 180 cm [facility] Heart Rate 2014-10-11 17:54:00 [facility] [place] Respitory Rate 2014-10-11 17:54:00 Memori al Rafael Systolic (mm Hg) 2014-10-11 17:54:00 German rial [place] Diastolic (mm Hg) 2014-10-11 17:54:00 Mem orial Rafael Height 2014-10-11 15:07:00 177.8 cm [facility] [place] Weight 2014-10-11 15:07:00 [facility] Rafael Systolic (mm Hg) 2014-10-11 15:07:00 German rial Virgil Diastolic (mm Hg) 2014-10-11 15:07:00 Mem orial Rafael Respitory Rate 2014-10-11 15:07:00 Memori al Rafael Heart Rate 2014-10-11 15:07:00 [facility] Rafael BMI Calculated 2014-10-11 15:07:00 Memori al Rafael Procedures Procedure Date / Time Performing Clinician Source Performed SLEEP STUDY DATA REPORT 2021-08-12 05:01:00 Doctor Unassigned, [facility] REFERRAL- 2021-07-23 05:01:00 Doctor Unassigned, [facility] REQUEST/RESPONSE [place] [facility] Colonoscopy 2017-02-08 00:00:00 Robert bravo Urology Endoscopy [facility] Reconstruction of Nose Robert Sparks etmarialuisa Urology MUSCU- Shoulder Surgery [facility] Knee Arthroscopy/surgery [facility] Procedure on Ankle [facility] Plan of Care Planned Activity Planned Date Details Comments Source Future Scheduled 2022-01-07 HEPATITIS B VACCINES [facility] Test 09:54:13 (1 of 3 - 3-dose series) [code = HEPATITIS B VACCINES (1 of 3 - 3-dose series)] Future Scheduled 2022-01-07 COVID-19 VACCINE (#1) [facility] Test 09:54:13 [code = COVID-19 VACCINE (#1)] Future Scheduled 2022-01-07 Hepatitis C screening [facility] Test 09:54:13 (procedure) [code = 000330312] Future Scheduled 2022-01-07 COLONOSCOPY SCREENING [facility] Test 09:54:13 [code = COLONOSCOPY SCREENING] Future Scheduled 2022-01-07 SHINGLES VACCINES (1 Met [facility] Test 09:54:13 of 2) [code = SHINGLES VACCINES (1 of 2)] Future Scheduled 2022-01-07 INFLUENZA VACCINE Method [facility] Test 09:54:13 [code = INFLUENZA VACCINE] Diagnostic Test 2021-11-27 urinalysis, dipstick [place] [facility] Pending 00:00:00 [code = urinalysis, Urology dipstick] Diagnostic Test 2021-11-27 PSA, serum or plasma [place] [facility] Pending 00:00:00 [code = PSA, serum or Urolog y plasma] Future Scheduled 2021-10-10 HEPATITIS B VACCINES Met [facility] Test 07:18:42 (1 of 3 - 3-dose series) [code = HEPATITIS B VACCINES (1 of 3 - 3-dose series)] Future Scheduled 2021-10-10 COVID-19 VACCINE (#1) [facility] Test 07:18:42 [code = COVID-19 VACCINE (#1)] Future Scheduled 2021-10-10 Hepatitis C screening [facility] Test 07:18:42 (procedure) [code = 269913753] Future Scheduled 2021-10-10 COLONOSCOPY SCREENING [facility] Test 07:18:42 [code = COLONOSCOPY SCREENING] Future Scheduled 2021-10-10 SHINGLES VACCINES (1 Met [facility] Test 07:18:42 of 2) [code = SHINGLES VACCINES (1 of 2)] Future Scheduled 2021-10-10 INFLUENZA VACCINE [facility] Test 07:18:42 [code = INFLUENZA VACCINE] Encounters Start End Encounter Admission Attending Care Care Encounter Source Date/Time Date/Time Type Type Clinicians Facility Department ID 2021-05-02 Outpatient [facility] [id number] Mirain 21:46:33 [id number] [facility] 2022-01-08 2022-01-08 Outpatient Champion_P HMU HMU [id number] [place] 00:00:00 00:00:00 [id number] [facility] 2021-12-15 2021-12-15 Outpatient Champion_P HMU HMU [id number] [place] 00:00:00 00:00:00 [id number] [facility] 2021-12-11 2021-12-11 Outpatient Champion_P HMU HMU [id number] [place] 00:00:00 00:00:00 [id number] [facility] 2021-12-11 2021-12-11 Chetan C U [place] - [id number] [facility] 00:00:00 00:00:00 Robert Holguin MD: [id number] [facility] Urology [facility] [address] [address] , Ph. 2021-12-01 2021-12-01 Outpatient Champion_P HMU HMU [id number] [place] 00:00:00 00:00:00 [id number] [facility] 2021-11-27 2021-11-27 Outpatient Champion_P HMU HMU [id number] [place] 00:00:00 00:00:00 [id number] [facility] 2021-11-27 2021-11-27 Chetan C HMU [place] - [id number] [facility] 00:00:00 00:00:00 Robert Holguin MD: [id number] [facility] Urology [facility] [address], [place] [address] , Ph. 2021-11-26 2021-11-26 Outpatient Champion_P HMU HMU [id number] [place] 00:00:00 00:00:00 [id number] [facility] 2021-11-20 2021-11-20 Outpatient Champion_P HMU HMU [id number] [place] 00:00:00 00:00:00 [id number] [facility] 2021-08-30 2021-08-30 Outpatient R PERFECTOJUDY BERNSTEINLIZETHL [facility] [id number] Univers 19:30:00 19:30:00 JUDY LYNHIL ity [facility] 2021-08-28 2021-08-28 Outpatient R [facility] [id number] Univers 07:45:00 07:45:00 ity [facility] 2021-08-12 2021-08-12 Folding Machine Operator 1, [facility] 1. 2.840.114 [id number] Univers 20:00:00 22:30:00 Visit Perfectoyonigrey Seda BARNES 350.1.13. 10 ity [facility] [id number] [facility] [phone] [facility] 193 Branch 2021-08-12 2021-08-12 Outpatient R PERFECTOYONIGREYJUDYLIZETHL [facility] [id number] Univers 20:00:00 20:00:00 PERFECTOYONIGREYJUDYLIZETHL ity [facility] 2021-08-12 2021-08-12 Orders Doctor PEREZ 1.2.840.114 [id number] Univers 00:00:00 00:00:00 Only Unassigned, JUAN RAMON [id number] ity of [place] [id number] [place] [address] [phone] [facility] 009 Branch 2021-08-09 2021-08-09 Outpatient R [facility] [id number] Univers 08:00:00 08:00:00 ity [facility] 2021-08-08 2021-08-08 Laboratory Only, Adc Test [facility] 1.2.840. 114 [id number] Univers 12:00:00 12:15:00 Only Seda Lyn 350.1.13. 10 ity [facility] 4.2.7.2.[address] [place] [address] [phone] [facility] 353 Branch 2021-08-08 2021-08-08 Outpatient R EBONIJUDYHIL [facility] [id number] Univers 12:00:00 12:00:00 JUDY LYNHIL ity of [facility] 2021-07-232021-07-23 Orders Doctor ANA 1.2.840.114 [id number] Univers 00:00:00 00:00:00 Only Unassigned, JUAN RAMON [id number] ity of [facility] 4.2.7.2.686 Puneet as [phone] [facility] 009 Branch 2021-07-17 2021-07-17 Telephone Eboni [facility] 1.2.840.114 [id number] Univers 00:00:00 00:00:00 Strahil T MULTISPEC [id number] ity of [place]2.7.2.686 [place] [id number] [address] [facility] 2021-07-10 2021-07-10 Telephone Eboni MTMINNA 1.2.840.114 [id number] Univers 00:00:00 00:00:00 Strahil T [place] [id number] [facility] 4.2.7.2.686 [place] [facility] [phone] [place] [id number] [facility] 2021-04-29 2021-04-29 Folding Machine Operator 1, [facility] [place] 1. 2.840.114 [id number] Univers 19:30:00 22:00:00 Visit Seda Lyn [place] 350.1.13. 10 ity of [place] 4[place]2.7.2.686 [place] [phone] [facility] 193 Branch 2021-04-29 2021-04-29 Outpatient R SEDA LYN [facility] [place] [id number] Univers 19:30:00 19:30:00 ATADAY STRAHIL ity of [facility] 2021-04-29 2021-04-29 Orders Doctor PEREZ 1.2.840.114 [id number] Univers 00:00:00 00:00:00 Only Unassigned, JUAN RAMON [id number] ity of [facility] 4.2.7.2.686 Puneet as [phone] [facility] 009 Branch 2021-04-28 2021-04-28 Laboratory Only, Adc Test [place] 1.2.840. 114 [id number] Univers 07:45:00 08:00:00 Only Tyshawn TianERWIN 350.1.13.10 ity [facility] [id number] [facility] [id number] [facility] 353 Branch 2021-04-28 2021-04-28 Outpatient R ASMITA [facility] [id number] Univers 07:45:00 07:45:00 TYSHAWN [facility] 2021-04-16 2021-04-16 [facility] [id number] Univers 11:00:00 11:20:47 Visit [facility] Venus BARNES [id number] ity [facility] [id number] [facility] [phone] [address] 2021-04-16 2021-04-16 Outpatient R EBONIJUDYMIL [facility] [id number] Univers 11:00:00 11:20:47 DIONTEGREY, JUDYMIL ity [facility] 2021-04-16 2021-04-16 Outpatient R PERFECTOYONIGREY, [facility] [id number] Univers 11:00:00 11:00:00 EBONI, JUDYMIL ity [facility] 2021-04-16 2021-04-16 Outpatient [facility] [id number] Univers 11:00:00 11:00:00 [facility]ONI [facility] 2021-04-16 2021-04-16 Orders Doctor PEREZ 1.2.840.114 [id number] Univers 00:00:00 00:00:00 Only Unassigned, JUAN RAMON [id number] ity of [facility] 4.2.7.2.686 [facility] [phone] [facility] 009 Branch 2020-04-18 2020-04-18 Outpatient [facility] [id number] [place] 00:00:00 00:00:[address] 2019-10-20 2019-10-20 Outpatient ARMIN [facility] [id number] [place] 00:00:00 00:00:00 JUSTIN 338 Metho di 2019-07-18 2019-07-18 Outpatient FUNEZ, [facility] [id number] [place] 00:00:00 00:00:00 JUSTIN 063 Metho di 2018-11-17 2018-11-18 Outpatient null[facility] [id number] Memoria 15:09:00 04:59:00 r Rafael [facility] 2018-11-17 2018-11-18 Outpatient nullFlavo [facility] [id number] Memoria 15:09:00 04:59:00 r Rafael The [address] [place] [address] 2018-11-17 2018-11-17 Outpatient Danyell, [facility] [id number] 10:09:00 23:59:00 Clarissa 03 SirishaJustin 2018-11-17 2018-11-17 Outpatient [facility] [id number] MHTW 10:09:00 10:09:00 2018-05-26 2018-05-27 [facility] [id number] Memoria 19:16:00 04:59:00 r Rafael The [address] [place] [address] 2018-05-26 2018-05-27 [facility] [id number] Memoria 19:16:00 04:59:00 r Rafael The [address] [place] [address] 2018-05-26 2018-05-26 Outpatient Danyell, [facility] [id number] 14:16:00 23:59:00 Clarissa SirishaJustin 2018-05-26 2018-05-26 Outpatient [facility] [id number] MHTW 14:16:00 14:16:00 2018-01-11 2018-01-11 Outpt Diag nullFlavo [facility] [id number] Memoria 13:30:00 13:30:00 Services r Outpatient 02 l Imaging [facility] 2018-01-11 2018-01-11 Outpt Diag nullFlavo [facility] [id number] Memoria 13:30:00 13:30:00 Services r Outpatient 02 l Imaging [facility] 2018-01-11 2018-01-11 Outpatient Danyell, [place] [address] [id number] 07:30:00 07:30:00 Clarissa 02 John 2018-01-11 2018-01-11 Outpatient Danyell, [address] [facility] [id number] 07:30:00 07:30:00 Philbert 02 Shirlene 2018-01-03 2018-01-04 Outpt Diag nullFlavo [facility] [id number] Memoria 21:50:00 05:59:00 Services r Outpatient 01 l Imaging [facility] 2018-01-03 2018-01-04 Outpt Diag nullFlavo [facility] [id number] Memoria 21:50:00 05:59:00 Services r Outpatient 01 l Imaging [facility] 2018-01-03 2018-01-03 Outpatient Danyell, [facility] [id number] 15:50:00 23:59:00 Philbert 01 Bertin 2016-11-06 2016-11-07 Outpt Diag nullFlavo [facility] [id number] Memoria 21:23:00 04:59:00 Services r Outpatient 00 l Imaging [facility] 2016-11-06 2016-11-07 Outpt Diag nullFlavo [facility] [id number] Memoria 21:23:00 04:59:00 Services r Outpatient 00 l Imaging [facility] 2016-11-06 2016-11-06 Outpatient Danyell, 37 [facility] [id number] 16:23:00 23:59:00 Philbert [place] [facility] 2014-10-19 2014-10-20 [facility] [id number] Memoria 13:44:00 04:59:00 r Rafael The 03 [facility] 2014-10-19 2014-10-20 Outpatient [facility] [id number] Memoria 13:44:00 04:59:00 r Rafael Breaux [facility] 2014-10-19 2014-10-19 Outpatient MOIRA Bills ITZ [id number] 08:44:00 23:59:00 Alex Piña 2014-10-11 2014-10-11 EC [facility] [id number] Memoria 14:51:00 18:07:00 Emergency r Rafael The [facility] 2014-10-11 2014-10-11 EC nullFlavo [facility] [id number] Memoria 14:51:00 18:07:00 Emergency r Rafael [facility] 2014-10-11 2014-10-11 Outpatient MOIRA Molina [facility] [id number] 09:51:00 13:07:00 Dwaynelilliam [place] 2014-10-10 2014-10-11 [facility] [id number] Memoria 18:06:00 04:59:00 r Rafael [address] 2014-10-10 2014-10-11 Outpatient nullFlavo [facility] [id number] Memoria 18:06:00 04:59:00 r Virgil [address] 2014-10-10 2014-10-10 Outpatient MOIRA Child [facility] [id number] 13:06:00 23:59:00 Clarissa Landa SosasinaJustin 2012-02-29 2012-02-29 Outpatient nullFlavo The [id number] Memoria 15:58:00 15:58:[address] 2012-02-29 2012-02-29 Outpatient nullFlavo The [id number] Memoria 15:58:00 15:58:[address] Rafael 2012-01-07 2012-02-05 [facility] [id number] Memoria 08:45:00 23:59:00 [facility] 2012-01-07 2012-02-05 [facility] [id number] Memoria 08:45:00 23:59:00 [facility] 2011-12-07 2012-01-05 [facility] [id number] Memoria 14:39:00 23:59:00 [facility] 2011-12-07 2012-01-05 [facility] [id number] Memoria 14:39:00 23:59:00 [facility] 2011-11-06 2011-11-06 [facility] [id number] Memoria 15:28:00 15:28:00 [facility] 2011-11-06 2011-11-06 [facility] [id number] Memoria 15:28:00 15:28:00 04 [facility] 2011-09-28 2011-10-27 [facility] [id number] Memoria 08:15:00 23:59:00 [facility] 2011-09-28 2011-10-27 [facility] [id number] Memoria 08:15:00 23:59:00 [facility] 2011-08-28 2011-09-26 [facility] [id number] Memoria 13:00:00 23:59:00 02 [facility] 2011-08-28 2011-09-26 [facility] [id number] Memoria 13:00:00 23:59:00 02 [facility] 2011-07-28 2011-08-26 [facility] [id number] Memoria 12:53:00 23:59:00 01 [facility] 2011-07-28 2011-08-26 [facility] [id number] Memoria 12:53:00 23:59:00 01 [facility] 2011-06-22 2011-06-22 [facility] [id number] Memoria 10:00:00 10:00:00 [facility] 2011-06-22 2011-06-22 [facility] [id number] Memoria 10:00:00 10:00:00 [facility] Results Test Description Test Time Test Comments Results Result Comments Source PSA, serum or plasma 2021-11-28 00:00:00 Test Item Value Reference Range Interpretation Comme nts Prostate specific Ag 1.00 NG/mL See_Comment [Autom ated message] The system [Mass/volume] in Serum or wh ich generated this result Plasma (test code = 2857-1) transmitted reference range: < or = 4.00. The reference range was not used to interpret this result as laly l/abnormal. [facility] UrologyUrinalysis macro (dipstick) panel - [id number] 09:27:00 Test Item Value Reference Range Interpretation Comments leukocytes (test code negative neg = leukocytes) urobilinogen (test 0.2 E.U./dL sm amt (.5-1mg/dL) code = urobilinogen) protein (test code = negative See_Comment [Autom ated protein) message] The sy stem which generated this result transmitted reference range : <=150 mg/d. The reference range was not used to interpret this result as normal/abnormal . pH (test code = pH) 5.5 4.5-8 blood (test code = negative See_Comment [Automat ed blood) message] The sy stem which generated this result transmitted reference range : <=3 RBC. The reference range was not used to interpret this result as normal/abnormal . specific gravity 1.025 1.005-1.025 (test code = specific gravity) ketone (test code = negative none ketone) bilirubin (test code negative neg = bilirubin) glucose (test code = 500 mg/dL See_Comment A [Autom ated glucose) message] The sy stem which generated this result transmitted reference range : <=130 mg/d. The reference range was not used to interpret this result as normal/abnormal . color (test code = yellow yellow color) clarity (test code = clear clear or cloudy clarity) nitrite (test code = negative neg nitrite) [facility] UrologyUrinalysis macro (dipstick) panel - [id number] 09:27:00 Test Item Value Reference Range Interpretation Comments leukocytes (test code negative neg = leukocytes) urobilinogen (test 0.2 E.U./dL sm amt (.5-1mg/dL) code = urobilinogen) protein (test code = negative See_Comment [Autom ated protein) message] The sy stem which generated this result transmitted reference range : <=150 mg/d. The reference range was not used to interpret this result as normal/abnormal . pH (test code = pH) 5.5 4.5-8 blood (test code = negative See_Comment [Automat ed blood) message] The sy stem which generated this result transmitted reference range : <=3 RBC. The reference range was not used to interpret this result as normal/abnormal . specific gravity 1.025 1.005-1.025 (test code = specific gravity) ketone (test code = negative none ketone) bilirubin (test code negative neg = bilirubin) glucose (test code = 500 mg/dL See_Comment A [Autom ated glucose) message] The sy stem which generated this result transmitted reference range : <=130 mg/d. The reference range was not used to interpret this result as normal/abnormal . color (test code = yellow yellow color) clarity (test code = clear clear or cloudy clarity) nitrite (test code = negative neg nitrite) [facility] [id number] 15:44:00 Test Item Value Reference Range Interpretation Comments D-Dimer (test code = D-Dimer) 2.05 [facility]fqqyxmBXCXYZRRKR8743-91-12 15:44:00 Test Item Value Reference Range Interpretation Comments D-Dimer (test code = D-Dimer) 2.05 [facility] HospitalTjnqlhuLNDMFOSWSI5091-57-17 15:24:00 Test Item Value Reference Range Interpretation Comments PT (test code = PT) 12.8 s 12.0-14.7 [facility] HospitalZsocgqxXLHOLAXQSL3428-82-76 15:24:00 Test Item Value Reference Range Interpretation Comments WBC (test code = WBC) 5.6 3.7-10.4 [facility] HospitalPuvdiemYGBVITZCBR9248-47-89 15:24:00 Test Item Value Reference Range Interpretation Comments MCV (test code = MCV) 91.8 80.0-94.0 [facility] HospitalWxgmpjwMKHMGAIPKC3920-12-25 15:24:00 Test Item Value Reference Range Interpretation Comments Hgb (test code = Hgb) 14.3 14.0-18.0 [facility] HospitalOfmcaquSMRNIWNBAD0817-75-79 15:24:00 Test Item Value Reference Range Interpretation Comments RBC (test code = RBC) 4.75 4.70-6.10 [facility] HospitalQapdijtTDLEOMOPLS9941-88-63 15:24:00 Test Item Value Reference Range Interpretation Comments Platelet (test code = Platelet) 219 133-450 [facility] HospitalFscyabtDESKVSLZDM6199-59-94 15:24:00 Test Item Value Reference Range Interpretation Comments MPV (test code = MPV) 8.2 7.4-10.4 [facility] HospitalTlfznqnGMNJZKBCSN4370-26-16 15:24:00 Test Item Value Reference Range Interpretation Comments RDW (test code = RDW) 13.3 11.5-14.5 [facility] HospitalEsnahpaHYKGQSYCVQ1504-46-65 15:24:00 Test Item Value Reference Range Interpretation Comments MCH (test code = MCH) 30.2 pg 27.0-31.0 [facility] HospitalRoymdlySHZRQPGESM6122-49-14 15:24:00 Test Item Value Reference Range Interpretation Comments MCHC (test code = MCHC) 32.9 32.0-36.0 [facility] CenterNlqjxvkFIPSWXEBXV0319-58-23 15:24:00 Test Item Value Reference Range Interpretation Comments Hct (test code = Hct) 43.6 42.0-54.0 [facility]annCARDIAC [id number] 15:24:00 Test Item Value Reference Range Interpretation Comments CK MB Index (test 1.0 See_Comment [Automate d message] The code = CK MB Index) system w [employer] generated this result transmit carola reference range : <=2.5. The reference range was not used to interpr et this result as laly l/abnormal. [facility] TexasActiveRainAC [id number] 15:24:00 Test Item Value Reference Range Interpretation Comments CK MB Index (test 1.0 See_Comment [Automate d message] The code = CK MB Index) system w [employer] generated this result transmit carola reference range : <=2.5. The reference range was not used to interpr et this result as laly l/abnormal. [facility] [id number] 15:24:00 Test Item Value Reference Range Interpretation Comments Total CK (test code = Total CK) [address] [facility] OpenDNSAC [id number] 15:24:00 Test Item Value Reference Range Interpretation Comments CK MB (test code = CK MB) 0.7 0.5-3.6 [facility] [id number] 15:24:00 Test Item Value Reference Range Interpretation Comments Troponin-I (test code no gt See_Comment [Auto mated message] The = Troponin-I) system which g enerated this result transmit carola reference range : <=0.40. The reference r teri was not used to interpr et this result as laly l/abnormal. [facility] pic5 [id number] 15:24:00 Test Item Value Reference Range Interpretation Comments Phosphorus (test code = Phosphorus) 3.4 2.5-4.[address] [facility] Open[employer]AC [id number] 15:24:00 Test Item Value Reference Range Interpretation Comments Total CK (test code = Total CK) [address] [facility] pic5 [id number] 15:24:00 Test Item Value Reference Range Interpretation Comments Magnesium Lvl (test code = Magnesium 1.8 1.8-2.4 Lvl) [facility]2015-09-03 15:24:00 Test Item Value Reference Range Interpretation Comments eGFR (test code = eGFR) 79 [facility]2015-09-03 15:24:00 Test Item Value Reference Range Interpretation Comments AST (test code = AST) 14 See_Comment [Auto mated message] The system which ge nerated this result transmit carola reference range : <=37. The reference range was not used to interpr et this result as laly l/abnormal. [facility]2015-09-03 15:24:00 Test Item Value Reference Range Interpretation Comments Alk Phos (test code = Alk Phos) 51 39-136 [facility]2015-09-03 15:24:00 Test Item Value Reference Range Interpretation Comments Bili Total (test code = Bili Total) 0.3 0.2-1.3 [facility]2015-09-03 15:24:00 Test Item Value Reference Range Interpretation Comments AGAP (test code = AGAP) 9.2 10.0-20.0 [facility]2015-09-03 15:24:00 Test Item Value Reference Range Interpretation Comments B/C Ratio (test code = B/C Ratio) 11 6-25 [facility]2015-09-03 15:24:00 Test Item Value Reference Range Interpretation Comments Globulin (test code = Globulin) 2.7 2.0-4.0 [facility]2015-09-03 15:24:00 Test Item Value Reference Range Interpretation Comments A/G Ratio (test code = A/G Ratio) 1.4 0.7-1.6 [facility]2015-09-03 15:24:00 Test Item Value Reference Range Interpretation Comments Total Protein (test code = Total 6.5 6.4-8.4 Protein) [facility]2015-09-03 15:24:00 Test Item Value Reference Range Interpretation Comments Calcium Lvl (test code = Calcium Lvl) 8.8 8.5-10.5 [facility]2015-09-03 15:24:00 Test Item Value Reference Range Interpretation Comments CO2 (test code = CO2) 30 24-32 [facility]2015-09-03 15:24:00 Test Item Value Reference Range Interpretation Comments Albumin Lvl (test code = Albumin Lvl) 3.8 3.5-5.0 [facility] [id number] 15:24:00 Test Item Value Reference Range Interpretation Comments ALT (test code = ALT) 33 See_Comment [Auto mated message] The system which ge nerated this result transmit carola reference range : <=65. The reference range was not used to interpr et this result as laly l/abnormal. [facility] [id number] 15:24:00 Test Item Value Reference Range Interpretation Comments BUN (test code = BUN) 12 7-22 [facility] [id number] 15:24:00 Test Item Value Reference Range Interpretation Comments Glucose Lvl (test code = Glucose Lvl) 105 70-99 [facility] [id number] 15:24:00 Test Item Value Reference Range Interpretation Comments Creatinine Lvl (test code = Creatinine 1.1 0.5-1.4 Lvl) [facility]2015-09-03 15:24:00 Test Item Value Reference Range Interpretation Comments Sodium Lvl (test code = Sodium Lvl) 139 135-145 [facility]WisrK[facility] [id number] 15:24:00 Test Item Value Reference Range Interpretation Comments Potassium Lvl (test code = Potassium 4.2 3.5-5.1 Lvl) [facility] [id number] 15:24:00 Test Item Value Reference Range Interpretation Comments Chloride Lvl (test code = Chloride Lvl) 104 95-109 [facility] CenterCARDIAC [id number] 15:24:00 Test Item Value Reference Range Interpretation Comments CK MB (test code = CK MB) 0.7 0.5-3.6 [facility] [id number] 15:24:00 Test Item Value Reference Range Interpretation Comments Monocytes (test code = Monocytes) 9.0 2.0-12.0 [facility] CenterImynoijNKPDHBAUEV5181-16-27 15:24:00 Test Item Value Reference Range Interpretation Comments Lymphocytes (test code = Lymphocytes) 28.4 20.0-40.0 [facility] HospitalChacyslRQXIKJWJBI4914-88-66 15:24:00 Test Item Value Reference Range Interpretation Comments Segs (test code = Segs) 59.6 45.0-75.0 [facility] HospitalByuzvrsWOGRDLVXTH4244-46-01 15:24:00 Test Item Value Reference Range Interpretation Comments Lymphocytes # (test code = Lymphocytes 1.6 1.0-5.5 #) [facility] HospitalBvjgsokTOMSECAHYD1408-48-33 15:24:00 Test Item Value Reference Range Interpretation Comments Segs-Bands # (test code = Segs-Bands #) 3.4 1.5-8.1 [facility] H[id number] 15:24:00 Test Item Value Reference Range Interpretation Comments Eosinophils (test code = 2.5 See_Comment [A utomated message] The Eosinophils) system which ge nerated this result tra nsmitted reference range : <=4.0. The reference r teri was not used to int erpret this result as normal/abnormal . [facility] HospitalYdoskskRNRZUTWKFY1912-23-57 15:24:00 Test Item Value Reference Range Interpretation Comments Monocytes # (test code 0.5 See_Comment [Aut omated message] The = Monocytes #) system which generated this result tra nsmitted reference range : <=0.8. The reference r teri was not used to int erpret this result as normal/abnormal . [facility] HospitalYqtvhntAIGTKAHEWG5725-54-02 15:24:00 Test Item Value Reference Range Interpretation Comments Basophils (test code = 0.5 See_Comment [Aut omated message] The Basophils) system which ge nerated this result tra nsmitted reference range : <=1.0. The reference r teri was not used to int erpret this result as normal/abnormal . [facility] HospitalZintoduSVVTQQWUVM6046-59-87 15:24:00 Test Item Value Reference Range Interpretation Comments Basophils # (test code 0.0 See_Comment [Aut omated message] The = Basophils #) system which generated this result tra nsmitted reference range : <=0.2. The reference r teri was not used to int erpret this result as normal/abnormal . [facility] HospitalOoqxhkhZUTIWUZLEX0418-05-03 15:24:00 Test Item Value Reference Range Interpretation Comments Eosinophils # (test code 0.1 See_Comment [A utomated message] The = Eosinophils #) system [facility] h generated this result tra nsmitted reference range : <=0.5. The reference r teri was not used to int erpret this result as normal/abnormal . [facility] [id number] 15:24:00 Test Item Value Reference Range Interpretation Comments Troponin-I (test code no gt See_Comment [Auto mated message] The = Troponin-I) system which g enerated this result transmit carola reference range : <=0.40. The reference r teri was not used to interpr et this result as laly l/abnormal. [facility] CenterYarjtdpFHIFOFEYDR0281-13-07 15:24:00 Test Item Value Reference Range Interpretation Comments INR (test code = INR) 0.93 0.85-1.17 [facility] CenterXfnpojgQYUDXRUELL9699-82-92 15:24:00 Test Item Value Reference Range Interpretation Comments PTT (test code = PTT) 25.5 s 22.9-35.8 [facility] CenterUtplaxxYUYTPJANSM8270-40-06 15:24:00 Test Item Value Reference Range Interpretation Comments PT (test code = PT) 12.8 s 12.0-14.7 [facility] HospitalUlmkggfDZRTEFMRFH1350-74-63 15:24:00 Test Item Value Reference Range Interpretation Comments WBC (test code = WBC) 5.6 3.7-10.4 [facility] CenterXewggigGPLQLHVUZQ9953-10-13 15:24:00 Test Item Value Reference Range Interpretation Comments MCV (test code = MCV) 91.8 80.0-94.0 [facility] CenterUqmgshmJTDPFTSWNK6738-50-67 15:24:00 Test Item Value Reference Range Interpretation Comments Hgb (test code = Hgb) 14.3 14.0-18.0 [facility] CenterNuvfjtqHRLZUBNPIY2526-73-48 15:24:00 Test Item Value Reference Range Interpretation Comments RBC (test code = RBC) 4.75 4.70-6.10 [facility] CenterDcdndcyWARLXPLSNO0486-43-81 15:24:00 Test Item Value Reference Range Interpretation Comments Platelet (test code = Platelet) 219 133-450 [facility] CenterIzizvxqFXDUHMFCLI7287-68-06 15:24:00 Test Item Value Reference Range Interpretation Comments MPV (test code = MPV) 8.2 7.4-10.4 [facility] CenterWgqiwuaEFQRLWFZBT1325-21-35 15:24:00 Test Item Value Reference Range Interpretation Comments RDW (test code = RDW) 13.3 11.5-14.5 [facility] [id number] 15:24:00 Test Item Value Reference Range Interpretation Comments Phosphorus (test code = Phosphorus) 3.4 2.5-4.5 [facility] HospitalEqmmvhrWYTTJMPNKO8961-65-01 15:24:00 Test Item Value Reference Range Interpretation Comments MCH (test code = MCH) 30.2 pg 27.0-31.0 [facility] HospitalPiveliqIIDYPRQWXK2232-35-32 15:24:00 Test Item Value Reference Range Interpretation Comments MCHC (test code = MCHC) 32.9 32.0-36.0 [facility] HospitalBhlruylKBWEJUZUHB5659-66-16 15:24:00 Test Item Value Reference Range Interpretation Comments Hct (test code = Hct) 43.6 42.0-54.0 [facility]2015-09-03 15:24:00 Test Item Value Reference Range Interpretation Comments Magnesium Lvl (test code = Magnesium 1.8 1.8-2.4 Lvl) [facility]2015-09-03 15:24:00 Test Item Value Reference Range Interpretation Comments eGFR (test code = eGFR) 79 [facility]2015-09-03 15:24:00 Test Item Value Reference Range Interpretation Comments AST (test code = AST) 14 See_Comment [Auto mated message] The system which ge nerated this result transmit carola reference range : <=37. The reference range was not used to interpr et this result as laly l/abnormal. [facility]2015-09-03 15:24:00 Test Item Value Reference Range Interpretation Comments Alk Phos (test code = Alk Phos) 51 39-136 [facility]2015-09-03 15:24:00 Test Item Value Reference Range Interpretation Comments Bili Total (test code = Bili Total) 0.3 0.2-1.3 [facility]2015-09-03 15:24:00 Test Item Value Reference Range Interpretation Comments AGAP (test code = AGAP) 9.2 10.0-20.0 [facility]2015-09-03 15:24:00 Test Item Value Reference Range Interpretation Comments B/C Ratio (test code = B/C Ratio) 11 6-25 [facility]2015-09-03 15:24:00 Test Item Value Reference Range Interpretation Comments Globulin (test code = Globulin) 2.7 2.0-4.0 [facility]2015-09-03 15:24:00 Test Item Value Reference Range Interpretation Comments A/G Ratio (test code = A/G Ratio) 1.4 0.7-1.6 [facility]2015-09-03 15:24:00 Test Item Value Reference Range Interpretation Comments Total Protein (test code = Total 6.5 6.4-8.4 Protein) [facility]2015-09-03 15:24:00 Test Item Value Reference Range Interpretation Comments Calcium Lvl (test code = Calcium Lvl) 8.8 8.5-10.5 [facility]2015-09-03 15:24:00 Test Item Value Reference Range Interpretation Comments CO2 (test code = CO2) 30 24-32 [facility]2015-09-03 15:24:00 Test Item Value Reference Range Interpretation Comments Albumin Lvl (test code = Albumin Lvl) 3.8 3.5-5.0 [facility]2015-09-03 15:24:00 Test Item Value Reference Range Interpretation Comments ALT (test code = ALT) 33 See_Comment [Auto mated message] The system which ge nerated this result transmit carola reference range : <=65. The reference range was not used to interpr et this result as laly l/abnormal. [facility] [facility]00 Test Item Value Reference Range Interpretation Comments BUN (test code = BUN) 12 7-22 [facility]2015-09-03 15:24:00 Test Item Value Reference Range Interpretation Comments Glucose Lvl (test code = Glucose Lvl) 105 70-99 [facility]2015-09-03 15:24:00 Test Item Value Reference Range Interpretation Comments Creatinine Lvl (test code = Creatinine 1.1 0.5-1.4 Lvl) [facility]2015-09-03 15:24:00 Test Item Value Reference Range Interpretation Comments Sodium Lvl (test code = Sodium Lvl) 139 135-145 [facility]2015-09-03 15:24:00 Test Item Value Reference Range Interpretation Comments Potassium Lvl (test code = Potassium 4.2 3.5-5.1 Lvl) [facility]2015-09-03 15:24:00 Test Item Value Reference Range Interpretation Comments Chloride Lvl (test code = Chloride Lvl) 104 95-109 [id number] 15:24:00 Test Item Value Reference Range Interpretation Comments Monocytes (test code = Monocytes) 9.0 2.0-12.0 [id number] 15:24:00 Test Item Value Reference Range Interpretation Comments Lymphocytes (test code = Lymphocytes) 28.4 20.0-40.0 [id number] 15:24:00 Test Item Value Reference Range Interpretation Comments Segs (test code = Segs) 59.6 45.0-75.0 [id number] 15:24:00 Test Item Value Reference Range Interpretation Comments Lymphocytes # (test code = Lymphocytes 1.6 1.0-5.5 #) [id number] 15:24:00 Test Item Value Reference Range Interpretation Comments Segs-Bands # (test code = Segs-Bands #) 3.4 1.5-8.1 [id number] 15:24:00 Test Item Value Reference Range Interpretation Comments Eosinophils (test code = 2.5 See_Comment [A utomated message] The Eosinophils) system which ge nerated this result tra nsmitted reference range : <=4.0. The reference r teri was not used to int erpret this result as normal/abnormal . [facility] H[id number] 15:24:00 Test Item Value Reference Range Interpretation Comments Monocytes # (test code 0.5 See_Comment [Aut omated message] The = Monocytes #) system which generated this result tra nsmitted reference range : <=0.8. The reference r teri was not used to int erpret this result as normal/abnormal . [facility] Hospit[id number] 15:24:00 Test Item Value Reference Range Interpretation Comments Basophils (test code = 0.5 See_Comment [Aut omated message] The Basophils) system which ge nerated this result tra nsmitted reference range : <=1.0. The reference r teri was not used to int erpret this result as normal/abnormal . [facility] H[id number] 15:24:00 Test Item Value Reference Range Interpretation Comments Basophils # (test code 0.0 See_Comment [Aut omated message] The = Basophils #) system which generated this result tra nsmitted reference range : <=0.2. The reference r teri was not used to int erpret this result as normal/abnormal . [facility] Hospit[id number] 15:24:00 Test Item Value Reference Range Interpretation Comments Eosinophils # (test code 0.1 See_Comment [A utomated message] The = Eosinophils #) system whic h generated this result tra nsmitted reference range : <=0.5. The reference r teri was not used to int erpret this result as normal/abnormal . [facility] HospitalG[id number] 15:24:00 Test Item Value Reference Range Interpretation Comments INR (test code = INR) 0.93 0.85-1.17 [facility] H[id number] 15:24:00 Test Item Value Reference Range Interpretation Comments PTT (test code = PTT) 25.5 s 22.9-35.8 [facility]
[2022-01-14] MEDS ORDERED: HYDROCODONE/APAP 7.5/325 MG TAB ONE (13:59)
--- NOTE | 2022-01-14 14:30 | RAD REPORT ---
EXAM DESCRIPTION: RAD - Knee Right 3 View - 01/14/2022 2:20 pm CLINICAL HISTORY: Pain COMPARISON: No comparisons FINDINGS: No fracture, dislocation or periosteal reaction.Small joint effusion is present. No joint space narrowing. No foreign body or other soft tissue abnormality. IMPRESSION: Small joint effusion with no acute bone finding. Clinical concerns for internal derangement or occult bony injury could be further assessed with outpa tient MR imaging.
--- NOTE | 2022-01-14 14:49 | ER ---
Nurse's Notes [facility] Name: Wolf Potter Age: 56 yrs Sex: Male : 1965 Arrival Date: 01/14/2022 Time: 13:17 Bed IW3 Private MD: Diagnosis: Pain in right knee Presentation: 01/14 13:34 Chief complaint: Chief complaint: Patient states: Right knee pain; 2-3 weeks ago pain vg1 behind knee that radiates up leg to groin and down to foot. Right knee appears to be swollen. 13:35 Coronavirus screen: Vaccine status: Patient reports being unvaccinated. Client denies vg1 travel out of the [place] in the last 14 days. Ebola Screen: Patient negative for fever greater than or equal to 101.5 degrees Fahrenheit, and additional compatible Ebola Virus Disease symptoms. Initial Sepsis Screen: Does the patient meet any 2 criteria? No. Patient's initial sepsis screen is negative. Does the patient have a suspected source of infection? No. Patient's initial sepsis screen is negative. Risk Assessment: Do you want to hurt yourself or someone else? Patient reports no desire to harm self or others. Onset of symptoms was December 31, 2021. 13:35 Method Of Arrival: Ambulatory 1 13:35 Acuity: MANDA 4 vg1 Triage Assessment: 13:39 General: Appears uncomfortable, Behavior is cooperative. Pain: Complains of pain in vg1 right knee Pain currently is 6 out of 10 on a pain scale. Musculoskeletal: Swelling present in Right knee. Historical: - Allergies: 13:39 Codeine; vg1 - PMHx: 13:39 Arthritis; Fibromyalgia; Hypercholesterolemia; vg1 - Immunization history:: Client reports having NOT received the Covid vaccine. - Social history:: Smoking status: Patient denies any tobacco usage or history of. Vital Signs: 13:35 BP 161 / 111; Pulse 88; Resp 16; Temp 98.0; Pulse Ox 98% on R/A; Weight 104.33 kg; vg1 Height 5 ft. 10 in. (177.80 cm); Pain 6/10; 13:35 Body Mass Index 33.00 (104.33 kg, 177.80 cm) vg1 ED Course: 13:17 Patient arrived in ED. mr 13:25 Zelda Patel PA-C is PHCP. sb4 13:25 Jaden Serrano MD is Attending Physician. sb4 13:39 Triage completed. vg1 13:39 Arm band placed on. vg1 14:01 Edilia Watson, RN is Primary Nurse. iw 14:22 Knee Right 3 View XRAY In Process Unspecified. EDMS 14:48 Ignacio Marquez MD is Referral Physician. sb4 Administered Medications: 14:02 Drug: [place] (HYDROcodone-acetaminophen) (7.5 mg-325 mg) 1 tabs Route: PO; iw Outcome: 14:49 Discharge ordered by . sb4 15:51 Patient left the ED. iw Signatures: Dispatcher [employer] EDND Matt Samantha mr Edilia Watson, RN RN iw Cuca Cardona RN RN vg1 Zelda Patel PA-C PABrentC sb4 Corrections: (The following items were deleted from the chart) 13:39 13:34 Chief complaint: vg1 vg1
--- NOTE | 2022-01-14 14:49 | EDPHYS ---
Physician Documentation [facility] Name: Wolf Potter Age: 56 yrs Sex: Male : 1965 Arrival Date: 01/14/2022 Time: 13:17 Bed IW3 Private MD: ED Physician Jaden Serrano HPI: 01/14 13:48 This 56 yrs old Male presents to ER via Ambulatory with complaints of right sb4 Knee Pain. 13:48 Onset: The symptoms/episode began/occurred 2 month(s) ago. The patient has experienced sb4 similar episodes in the past, chronically. The patient has not recently seen a physician, Patient reports he has had several orthopedic surgeries in the past. States his knee pain feels similar to when he tore his meniscus. pain has been present for 2 months but has been worsening. He could not get out of bed yesterday. States the pain is somewhat better today. He has taken a few norco at home for pain that he had leftover from prior surgeries. [facility] is [facility] and says they have not properly evaluated him.. Historical: - Allergies: 13:39 Codeine; vg1 - PMHx: 13:39 Arthritis; Fibromyalgia; Hypercholesterolemia; vg1 - Immunization history:: Client reports having NOT received the Covid vaccine. - Social history:: Smoking status: Patient denies any tobacco usage or history of. ROS: 13:48 Constitutional: Negative for fever, chills, and weight loss, Eyes: Negative for injury, sb4 pain, redness, and discharge, Cardiovascular: Negative for chest pain, palpitations, and edema, Respiratory: Negative for shortness of breath, cough, wheezing, and pleuritic chest pain, Abdomen/GI: Negative for abdominal pain, nausea, vomiting, diarrhea, and constipation. 13:48 MS/extremity: Positive for swelling, right knee pain, swelling, limping. Exam: 13:48 Constitutional: This is a well developed, well nourished patient who is awake, alert, sb4 and in no acute distress. Head/Face: Normocephalic, atraumatic. Eyes: Pupils equal round and reactive to light, extra-ocular motions intact. Periorbital areas with no swelling, redness, or edema. ENT: Mucous membranes moist. Chest/axilla: Normal chest wall appearance and motion. Nontender with no deformity. No lesions are appreciated. Cardiovascular: Regular rate and rhythm with a normal S1 and S2. Respiratory: Lungs have equal breath sounds bilaterally, clear to auscultation and percussion. No rales, rhonchi or wheezes noted. No increased work of breathing, no retractions or nasal flaring. Abdomen/GI: Soft, non-tender, no distension. Skin: Warm, dry with normal turgor. Normal color with no rashes, no lesions, and no evidence of cellulitis. 13:48 Musculoskeletal/extremity: ROM: limited active range of motion due to pain, in the right leg, limited passive range of motion due to pain, in the right leg, Circulation is intact in all extremities. Pulses: are normal with no appreciated deficits, Perfusion: the patient is normally perfused throughout, Perfusion: the extremity is normally perfused throughout, Edema, is not appreciated, Sensation intact. Vital Signs: 13:35 BP 161 / 111; Pulse 88; Resp 16; Temp 98.0; Pulse Ox 98% on R/A; Weight 104.33 kg; vg1 Height 5 ft. 10 in. (177.80 cm); Pain 6/10; 13:35 Body Mass Index 33.00 (104.33 kg, 177.80 cm) vg1 MDM: 13:47 Patient medically screened. sb4 14:50 Data reviewed: vital signs, nurses notes, radiologic studies, and as a result, I will sb4 discharge patient. Test interpretation: by ED physician or midlevel provider: plain radiologic studies. 01/14 13:45 Order name: Knee Right 3 View XRAY; Complete Time: 14:39 vg1 Administered Medications: 14:02 Drug: [place] (HYDROcodone-acetaminophen) (7.5 mg-325 mg) 1 tabs Route: PO; iw Disposition: 18:45 Co-signature as Attending Physician, Jaden Serrano MD. rn Disposition Summary: 01/14/22 14:49 Discharge Ordered Location: Home sb4 Condition: Stable sb4 Diagnosis - Pain in right knee sb4 Followup: sb4 - With: Ignacio Marquez MD - When: 2 - 3 days - Reason: Further diagnostic work-up, Recheck today's complaints, Re-evaluation by your physician Discharge Instructions: - Discharge Summary Sheet sb4 - How to Use a Knee Brace sb4 - Acute Knee Pain, Adult, Tdks-pr-[id number] sb4 Forms: - Medication Reconciliation Form sb4 - Thank You Letter sb4 - Antibiotic Education sb4 - Prescription Opioid Use sb4 Prescriptions: - meloxicam 7.5 mg Oral tablet - take 1 tablet by ORAL route every 8 hours for 10 days; 30 tablet; Refills: 0, sb4 Product Selection Permitted - orphenadrine citrate 100 mg Oral Tablet Sustained Release - take 1 tablet by ORAL route 2 times per day As needed; 20 tablet; Refills: 0, sb4 Product Selection Permitted Signatures: Dispatcher [employer] Edilia Good, Jaden Hoffmann RN, MD MD rn Garcia, Victoria, RN RN Zelda Barboza PA-C PA-C sb4 Corrections: (The following items were deleted from the chart) 13:54 13:48 Musculoskeletal/extremity: ROM: limited active range of motion due to pain, in sb4 the right leg, limited passive range of motion due to pain, in the right leg, Circulation is intact in all extremities. Pulses: are normal with no appreciated deficits, Perfusion: the patient is normally perfused throughout, Perfusion: the extremity is normally perfused throughout, Calf tenderness, that is mild, Edema, is not appreciated, Sensation intact. DVT Exam: Calves: sb4
[2022-01-14 20:02] VITALS: BP 161/111; TEMP 98; O2SAT 98
== END 2022-01-14 15:51 | disposition home or self-care (01) ==
LOC: ER 13:13
DX: M25.561 Pain in right knee (principal); Z88.5 Allergy status to narcotic agent
CPT/HCPCS: 99283

== ENCOUNTER 2022-10-07 07:07 | Emergency (ER) | payer OTHER ==
--- OUTSIDE RECORDS SUMMARY | 2022-10-07 07:13 | XMS REPORT | Continuity of Care Document ---
:1965 Author Organization [facility] t Address [address] [place] [address] [place] [address] Care Team Providers Name Role Phone Lucy Funez MD Primary Care Physician [phone] Champion_P Attending Clinician Unavailable SEDA LYN Attending Clinician Unavailable SEDA LYN Attending Clinician Unavailable 1, [facility] Attending Clinician Unavailable Seda Lyn MD Attending Clinician Doctor Unassigned, [place] Attending Clinician Unavailable Only, [facility] Test Attending Clinician Unavailable Tyshawn Tian MD Attending Clinician TYSHAWN TIAN Attending Clinician Unavailable LUCY FUNEZ Attending Clinician Unavailable Clarissa Child Attending Clinician Alex Bills Attending Clinician Dwayne Molina Attending Clinician Champion_P Admitting Clinician Unavailable Payers Payer Name Policy Type Policy Number Effective Date Expiration Date Armando dennis [facility] 11 [id number] 2019 [facility] 00:00:00 [facility] CCN [id number] [facility] 4 [facility] CCN [id number] 2021 00:00:00 CARMELA - GRICELDA [id number] - OVERSEAS - ACTIVE DUTY PERSONNEL Problems Condition Condition Condition Status Onset Resolution Last Treating Co mments Source Name Details Category Date Date Treatment Clinician Date Induration Induration Problem Active 2021-02 [place] penis Penis 0-20 [facility] plastica Plastica 00:00: Urolog y 00 Primary Primary Problem Active 2021-02 Robert erectile Erectile 0-20 [facility] dysfunctio Dysfunctio 00:00: [...] OF SCROTUM OF SCROTUM 00 Active 11/16/2018 [facility] COUGH COUGH Diagnosis Active 2018-05-26 Mem oria Active 05-26 14:17:00 l 05/26/2018 00:00: Davin barragan [address] R05 - R05 - Diagnosis Active 2018-1 2018-02-11 Mem oria COUGH COUGH 03-11 16:19:00 l Active 00:01: [place] 01/08/2018 00 OPID [place] CHEST PAIN CHEST Diagnosis Active 2014-10-19 Memoria PAIN 10-12 08:51:00 l Active 00:00: [place] 10/12/2014 00 [facility] R SHOULDER R Diagnosis Active 2011-06-22 Memoria SHOULDER 05-20 10:26:00 l Active 08:00: [place] 05/21/2011 00 [facility] Rafael R SHLD R SHLD Diagnosis Active 2011-09-25 Me moria Active 05-20 08:43:00 l 05/21/2011 08:00: Davin n [facility] 00 [place] Depressive Depressiv Problem Active 2018-11-19 Memoria disorder e disorder 22:46:35 l (disorder) (disorder) He [place] Active Problem 11/19/2018 OPID [place], [place] Pneumonia Pneumonia Problem Active 2018-11-19 Memoria (disorder) (disorder) 22:46:35 l Active [place] Problem 11/19/2018 OPID [place], [place] Vasectomy Vasectomy Problem Active 2018-11-19 Memoria (procedure (procedure 22:46:35 l ) ) Active [place] Problem 11/19/2018 OPID [place], [place] Depression Depressio Problem Active 2012-03-02 Memoria n Active 10:31:10 l Problem [place] 03/02/2012 [place] Pneumonia Pneumonia Problem Active 2012-03-02 Memoria Active 10:31:10 l Problem [place] 03/02/2012 [place] Vasectomy Vasectomy Problem Active 2012-03-02 Memoria Active 10:31:10 l Problem [place] 03/02/2012 [place] SHOULDER SHOULDER Diagnosis Active 2011-11-20 Memoria PAIN PAIN 13:15:00 l Active Rafael [facility] Rafael S/P R S/P R Diagnosis Active 2011-10-29 Me moria SHOULDER SHOULDER 14:48:00 l [facility] Diagnosis Active 2012-01-29 Memoria S/P S/P Active 11:02:00 l [facility] SH[facility] SHLD Diagnosis Active 2012-02-26 Mem oria Active 15:38:00 l [facility] COUGH FOR COUGH FOR Diagnosis Active 2012-02-29 Memoria 4 WKS 4 WKS 15:58:00 l Active Davin barragan [place] No known No known Disease Unive rs active active ity of problems problems [facility] History of Past Illness Condition Condition Condition Status Onset Resolution Last Treating Co mments Source Name Details Category Date Date Treatment Clinician Date Cough Cough Problem 2017-2018-07-24 2018-07-24 M emoria 01/08/201803-11 11:21:08 11:21:08 l 10:26: Davin barragan 9 OPID 16 [place] Discharge Discharge Problem 2014-10-14 2014-10-14 Memoria Diagnosis: Diagnosis: 10-11 06:57:36 06:57:36 l Chest pain Chest pain 05:00: He otto 10/11/201410/14/2014 [facility] Allergies, Adverse Reactions, Alerts Allergy Allergy Status Severity Reaction(s) Onset Inactive Treating Comm ents Source Name Type Date Date Clinician Codeine Propensi Active Itching Univer s ty to 04-16 ity of adverse 00:00: [place] reaction 00 [facility] s [facility] CODEINE DRUG Active ITCHING Univers INGREDI 04-16 ity of 00:00: [place] 00 [facility] No Known DA Active U [facility] Allergie 10-29 [place] s 00:[facility]: [facility] 00 [facility] No Known DA Active U 2004-02 [facility] Contrast 2-27 [place] Allergie 00:00: [facility] 00 [facility] No Known DA Active U 2004-02 [facility] Drug 2- [place] Allergie 00:00: Regiona [facility] No Known DA Active U 2004-02 [facility] Food 2-27 [place] Allergie 00:00: Regiona s 00 [facility] No Known DA Active U 2004-02 [facility] Other 2-27 [place] Allergie 00:00: Regiona 00 [facility] No Known No Known Active Memori a Medicati Medicati l on on Rafael Allergie Allergie s s Family History Family Member Diagnosis Comments Start Date Stop Date Source Natural brother COPD [facility] Natural brother Diabetes [facility] Natural brother Motor [facility] Acc[facility] Natural mother COPD [facility] Social History Social Habit Start Date Stop Date Quantity Comments Source Gender identity [facility] Sexual orientation [facility] Exposure to 2021-03-17 2021-04-16 Not sure University SARS-CoV-2 (event) 00:00:00 08:40:00 [facility] Tobacco use and 2021-04-16 2021-04-16 Never used Universit y of exposure 00:00:00 00:00:00 [facility] History of Social 2020-04-18 2020-04-[address] function 00:00:00 00:00:00 Hospital Alcohol intake 2020-04-18 2020-04-18 Current drinker [facility] 00:00:00 00:00:00 of alcohol Hospital (finding) Sex Ass[birth year] At [birth year] [facility] 00:00:00 00:00:00 Hospital Smoking Status Start Date Stop Date Source Never Smoker [place] marialuisa pandya Medications Ordered Filled Start Stop Current Ordering Indication Dosage Frequency Signature Comments Components Source Medication Medication Date Date Medication? Clinician (SIG) Name Name No known No Univers medications 3-09 ity of 11:05: [address] No known No Univers medications 3-09 ity of 11:05: [address] No known No Univers medications 3-09 ity of 11:05: [address] No known No Univers medications 3-09 ity of 11:05: [address] No known 2021- No Univers medications 3-09 ity of 11:05: [address] No known No Univers medications 3-09 ity of 11:05: [address] No known 2021-0 No Univers medications 3-09 ity of 11:05: [address] FLUoxetine 2021- No 80mg QD Take [...] l tablet ONCE A DAY. busPIRone Yes [id number] 15mg Q.[id number] Take 1 [facility] (BUSPAR) 15 6-04 [id number] tablet (15 st MG tablet 00:00: 3D mg total) Hos yvan 00 by mouth 3 l (three) times a day. busPIRone Yes [id number] 15mg Q.[id number] Take 1 [facility] (BUSPAR) 15 6-04 [id number] tablet (15 st MG tablet 00:00: 3D mg total) Hos yvan 00 by mouth 3 l (three) times a day. busPIRone Yes [id number] 15mg Q.[id number] Take 1 [facility] (BUSPAR) 15 6-04 [id number] tablet (15 st MG tablet 00:00: 3D mg total) Hos yvan 00 by mouth 3 l (three) times a day. HYDROcodone Yes [id number] 1{tbl} Q6H Take 1 M ethodi -acetaminop 3-[address] [employer] ([facility]) 08:07: mouth Hospi ta 10-325 mg 39 every 6 l per tablet (six) hours as needed for moderate pain .acute pain. HYDROcodone Yes [id number] 1{tbl} Q6H Take 1 M ethodi -acetaminop 3-[address] hen (GENEVA) 08:07: mouth Hospi ta 10-325 mg 39 every 6 l per tablet (six) hours as needed for moderate pain .acute pain. HYDROcodone 2020-0 Yes [id number] 1{tbl} Q6H Take 1 M ethodi -acetaminop 3-[address] hen (GENEVA) 08:07: mouth Hospi ta 10-325 mg 39 every 6 l per tablet (six) hours as needed for moderate pain .acute pain. lamoTRIgine 1-0 Yes 200mg QD Take 1 Met h[facility] (LaMICtal) 3-[address] 200 MG 00:00: (200 mg Hospita tablet 00 total) by l mouth daily. lamoTRIgine 2021-0 Yes 200mg QD Take 1 Met [facility] (LaMICtal) 3-[address] 200 MG 00:00: (200 mg Hospita tablet 00 total) by l mouth daily. lamoTRIgine 2021-0 Yes 200mg QD Take 1 Met [facility] (LaMICtal) 3-[address] 200 MG 00:00: (200 mg Hospita tablet 00 total) by l mouth daily. tadalafil 2020-0 Yes TAKE ONE Meth mindy (ADCIRCA) 7-31 (1) st 20 mg 00:00: TABLET(S) Hospita tablet 00 BY MOUTH l PRIOR TO INTERCOURS E. tadalafil 2020-0 Yes TAKE ONE Meth mindy (ADCIRCA) 7-31 (1) st 20 mg 00:00: TABLET(S) Hospita tablet 00 BY MOUTH l PRIOR TO INTERCOURS E. tadalafil 2020-0 Yes TAKE ONE Meth mindy (ADCIRCA) -31 (1) st 20 mg 00:00: TABLET(S) Hospita tablet 00 BY MOUTH l PRIOR TO INTERCOURS E. Ketorolac 2014-0 No 4 days Memor ia 10-11 l 15:52: MEDICATION [place] 00 WASTE Product Size: 30 mg Product Wasted: ___ mg Ketorolac No 4 days Memor ia 10-11 l 15:52: MEDICATION [place] 00 WASTE Product Size: 30 mg Product Wasted: ___ mg Ketorolac No 4 days Memor ia 10-11 l 15:52: MEDICATION [place] 00 WASTE Product Size: 30 mg Product Wasted: ___ mg Trazodone 2014- Yes PO, 0 Memoria 9-03 Refill(s) l 15:29: Trazodone 2014-0 Yes PO, 0 Memoria 9 Refill(s) l 15:29: Trazodone Yes PO, 0 Memoria 9 Refill(s) l 15:29: atorvastati atorvastati No atorvastat [place] n n in [facility] Multi Multi No [facility] Vitamin Vitamin Vitamin [facility] pantoprazol pantoprazol No pantoprazo [place] e 40 mg e 40 mg le 40 mg [facility] tablet,cade tablet,cade tablet,del Urology yed release yed release ayed TAKE ONE TAKE ONE release (1) (1) TAKE ONE TABLET(S) TABLET(S) (1) BY MOUTH BY MOUTH TABLET(S) ONCE A DAY. ONCE A DAY. BY MOUTH ONCE A DAY. atorvastati atorvastati No atorvastat [place] n n in [facility] hydrocodone hydrocodone No hydrocodon [place] 5 5 e 5 [facility] mg-acetamin mg-acetamin mg-acetami Urology ophen 325 ophen 325 nophen 325 mg tablet mg tablet mg tablet TAKE ONE TAKE ONE TAKE ONE (1) (1) (1) TABLET(S) TABLET(S) TABLET(S) BY MOUTH BY MOUTH BY MOUTH EVERY EIGHT EVERY EIGHT EVERY HOURS HOURS EIGHT NEEDED FOR NEEDED FOR HOURS PAIN. PAIN. NEEDED FOR PAIN. metformin metformin No metformin [place] 500 mg 500 mg 500 mg [facility] tablet TAKE tablet TAKE tablet Urology 1 TABLET BY 1 TABLET BY TAKE 1 MOUTH 2 MOUTH 2 TABLET BY TIMES DAILY TIMES DAILY MOUTH 2 NEEDED NEEDED TIMES DAILY NEEDED Multi Multi No [facility] Vitamin Vitamin Vitamin [facility] pantoprazol pantoprazol No pantoprazo [place] e 40 mg e 40 mg le [...] more day. day. than once per day. atorvastati atorvastati No atorvastat [place] n n in [facility] Urolog metformin metformin No metformin [place] 500 mg 500 mg 500 mg [facility] tablet TAKE tablet TAKE tablet Urology 1 TABLET BY 1 TABLET BY TAKE 1 MOUTH 2 MOUTH 2 TABLET BY TIMES DAILY TIMES DAILY MOUTH 2 NEEDED NEEDED TIMES DAILY NEEDED Multi Multi No Multi [place] Vitamin Vitamin Vitamin [facility] pantoprazol pantoprazol No pantoprazo [place] e 40 mg e 40 mg le [...] Observation Time Observation Value Comments Source BP Diastolic 2022-02-26 00:00:00 84 mm[Hg] [facility] Height 2022-02-26 00:00:00 70 [in_i] [place] [facility] BMI (Body Mass 2022-02-26 00:00:00 32 kg/m2 [place] [facility] Index) Urology BP Systolic 2022-02-26 00:00:00 124 mm[Hg] [place] [facility] Body Weight 2022-02-26 00:00:00 223 [facility]_av[facility] BP Diastolic 2021-12-11 00:00:00 98 mm[Hg] [facility] Height 2021-12-11 00:00:00 70 [in_i] [facility] BMI (Body Mass 2021-12-11 00:00:00 33 kg/m2 [place] [facility] Index) Urology BP Systolic 2021-12-11 00:00:00 158 mm[Hg] [facility] Body Weight 2021-12-11 00:00:00 230 [lb_av] [facility] BP Diastolic 2021-11-27 00:00:00 74 mm[Hg] [facility] Height 2021-11-27 00:00:00 70 [in_i] [facility] BMI (Body Mass 2021-11-27 00:00:00 33 kg/m2 [place] [facility] Index) Urology BP Systolic 2021-11-27 00:00:00 134 mm[Hg] [facility] Body Weight 2021-11-27 00:00:00 230 [lb_av] [facility] Systolic blood 2021-04-16 17:03:00 151 mm[Hg] [facility] pressure [facility] Diastolic blood 2021-04-16 17:03:00 101 mm[Hg] [facility] pressure [facility] Heart rate 2021-04-16 17:01:00 83 /min [facility] Body height 2021-04-16 17:01:00 177.8 cm [facility] Body weight 2021-04-16 17:01:00 107.049 kg [facility] BMI 2021-04-16 17:01:00 33.86 kg/m2 [facility] Oxygen saturation 2021-04-16 17:01:00 96 /min [facility] [place] in Arterial blood Medical Br anch by Pulse oximetry Weight 2014-10-19 14:08:00 [facility] [place] BMI Calculated 2014-10-19 14:08:00 Memori al [place] Height 2014-10-19 14:08:00 180 cm [facility] Heart Rate 2014-10-11 17:54:00 [facility] [place] Respitory Rate 2014-10-11 17:54:00 Memori al [place] Systolic (mm Hg) 2014-10-11 17:54:00 German rial [place] Diastolic (mm Hg) 2014-10-11 17:54:00 Mem orial [place] Height 2014-10-11 15:07:00 177.8 cm [facility] [place] Weight 2014-10-11 15:07:00 [facility] [place] Systolic (mm Hg) 2014-10-11 15:07:00 German rial [place] Diastolic (mm Hg) 2014-10-11 15:07:00 Mem orial [place] Respitory Rate 2014-10-11 15:07:00 Memori al [place] Heart Rate 2014-10-11 15:07:00 [facility] [place] BMI Calculated 2014-10-11 15:07:00 Memori al [place] Procedures Procedure Date / Time Performing Clinician Source Performed SLEEP STUDY DATA REPORT 2021-08-12 05:01:00 Doctor Unassigned, [facility] [place] [facility] REFERRAL- 2021-07-23 05:01:00 Doctor Unassigned, [facility] REQUEST/RESPONSE [place] [facility] Colonoscopy 2017-02-08 00:00:00 Robert Varela o Urology Endoscopy [facility] Urology Reconstruction of Nose [facility]ro Urology MUSCU- Shoulder Surgery [facility] Urology Knee Arthroscopy/surgery [facility] Urology Procedure on Ankle [facility] Urology Plan of Care Planned Activity Planned Date Details Comments Source Future Scheduled 2022-10-04 [facility] Test 11:32:42 malignant neoplasm of colon (procedure) [code = 995595762] Future Scheduled 2022-10-04 [facility] Test 11:32:42 malignant neoplasm of colon (procedure) [code = 615097952] Future Scheduled 2022-10-04 [facility] Test 11:32:42 malignant neoplasm of colon (procedure) [code = 538021602] Future Scheduled 2022-10-04 COVID-19 VACCINE (#1) Me [facility] Test 11:32:42 [code = COVID-19 VACCINE (#1)] Future Scheduled 2022-10-04 Hepatitis C screening [facility] Test 11:32:42 (procedure) [code = 859272764] Future Scheduled 2022-10-04 [facility] Test 11:32:42 malignant neoplasm of colon (procedure) [code = 410663883] Future Scheduled 2022-10-04 [facility] Test 11:32:42 malignant neoplasm of colon (procedure) [code = 305131700] Future Scheduled 2022-10-04 SHINGLES VACCINES (1 [facility] Test 11:32:42 of 2) [code = SHINGLES VACCINES (1 of 2)] Future Scheduled 2022-10-04 INFLUENZA VACCINE [facility] Test 11:32:42 (#1) [code = INFLUENZA VACCINE (#1)] Diagnostic Test 2022-02-26 urinalysis, dipstick [place] [facility] Pending 00:00:00 [code = urinalysis, Urology dipstick] Future Scheduled 2022-01-07 HEPATITIS B VACCINES [facility] Test 09:54:13 (1 of 3 - 3-dose series) [code = HEPATITIS B VACCINES (1 of 3 - 3-dose series)] Future Scheduled 2022-01-07 COVID-19 VACCINE (#1) [facility] Test 09:54:13 [code = COVID-19 VACCINE (#1)] Future Scheduled 2022-01-07 Hepatitis C screening [facility] Test 09:54:13 (procedure) [code = 745208353] Future Scheduled 2022-01-07 COLONOSCOPY SCREENING [facility] Test 09:54:13 [code = COLONOSCOPY SCREENING] Future Scheduled 2022-01-07 SHINGLES VACCINES (1 [facility] Test 09:54:13 of 2) [code = SHINGLES VACCINES (1 of 2)] Future Scheduled 2022-01-07 INFLUENZA VACCINE [facility] Test 09:54:13 [code = INFLUENZA VACCINE] Future Scheduled 2021-10-10 HEPATITIS B VACCINES [facility] Test 07:18:42 (1 of 3 - 3-dose series) [code = HEPATITIS B VACCINES (1 of 3 - 3-dose series)] Future Scheduled 2021-10-10 COVID-19 VACCINE (#1) [facility] [place] Test 07:18:42 [code = COVID-19 VACCINE (#1)] Future Scheduled 2021-10-10 Hepatitis C screening [facility] [place] Test 07:18:42 (procedure) [code = 829625882] Future Scheduled 2021-10-10 COLONOSCOPY SCREENING [facility] [place] Test 07:18:42 [code = COLONOSCOPY SCREENING] Future Scheduled 2021-10-10 SHINGLES VACCINES (1 [facility] Test 07:18:42 of 2) [code = SHINGLES VACCINES (1 of 2)] Future Scheduled 2021-10-10 INFLUENZA VACCINE [facility] Hospital Test 07:18:42 [code = INFLUENZA VACCINE] Encounters Start End Encounter Admission Attending Care Care Encounter Source Date/Time Date/Time Type Type Clinicians Facility Department ID 2021-05-02 Outpatient [facility] [id number] [place] 21:46:33 [id number] [facility] 2022-09-24 2022-09-24 Outpatient Champion_P U [facility] 4823 [facility]202 [place] 00:00:00 00:00:00 [id number] [facility] 2022-07-22 2022-07-22 Outpatient R SEDA LYN [facility] [id number] [facility] 09:30:00 09:30:[address] [facility] 2022-03-10 2022-03-10 Outpatient Champion_P HMU [facility] [address] [place] [address] 00:00:00 00:00:00 [id number] [facility] 2022-02-26 2022-02-26 Chetan Pryor [facility] [place] - [id number] Anthony long 00:00:00 00:00:00 Robert Holguin MD: [id number] [facility] Urology [address] [address] , Ph. 2022-02-10 2022-02-10 Outpatient Champion_P [facility] 4823 [facility]202 [place] 00:00:00 00:00:00 [id number] [facility] 2022-02-10 2022-02-10 Outpatient Champion_P HMU [facility] 4823 80 [place] 00:00:00 00:00:00 [id number] [facility] 2022-01-21 2022-01-21 Travel [id number] Methodi 00:00:00 00:00:[id number] 3.430.2.7 0.2.7.3.698 Ho spita .[id number] 084.8 l .8 2022-01-08 2022-01-08 Outpatient Champion_P HMU [facility] 4823 [facility] [place] 00:00:00 00:00:00 [id number] [facility] 2021-12-15 2021-12-15 Outpatient Champion_P [facility] [address] [place] [address] 00:00:00 00:00:00 [id number] [facility] 2021-12-11 2021-12-11 Outpatient Champion_P [facility]U [facility] 4823 [facility] [place] 00:00:00 00:00:00 [id number] [facility] 2021-12-11 2021-12-11 Chetan C U [place] - [id number] [facility] 00:00:00 00:00:00 Robert Holguin MD: [id number] [facility] Urology [address] [phone] , Ph. 2021-12-01 2021-12-01 Outpatient Champion_P [facility] [address] [place] [address] 00:00:00 00:00:00 [id number] [facility] 2021-11-27 2021-11-27 Outpatient Champion_P [facility] [address] [place] [address] 00:00:00 00:00:00 [id number] [facility] 2021-11-27 2021-11-27 Chetan C [facility] [place] - [id number] [facility] 00:00:00 00:00:00 Robert Holguin MD: [id number] [facility] Urology [facility] [place] [address], [place] [address] , Ph. 2021-11-26 2021-11-26 Outpatient Champion_P [facility] 4823 [facility] [place] 00:00:00 00:00:00 [id number] [facility] 2021-11-20 2021-11-20 Outpatient Champion_P HMU U 4823 [facility] [place] 00:00:00 00:00:00 [facility] 2021-08-30 2021-08-30 Outpatient R SEDA LYN [facility] [id number] Univers 19:30:00 19:30:00 SEDA LYN ity [facility] 2021-08-28 2021-08-28 Outpatient R [facility] [id number] Univers 07:45:00 07:45:00 ity [facility] 2021-08-12 2021-08-12 Office Services Associate 1, Luciano Sleep Lab Bed [facility] [id number]. [id number] Univers 20:00:00 22:30:00 Visit Seda Lyn 350.1.13. 10 ity [facility] 4.2.[address] [facility] [id number] [facility] 193 Branch 2021-08-12 2021-08-12 Outpatient R SEDA LYN [facility] [id number] Univers 20:00:00 20:00:00 SEDA LYN ity [facility] 2021-08-12 2021-08-12 Orders Doctor PEREZ [id number] Univers 00:00:00 00:00:00 Only Unassigned, JUAN RAMON [id number] ity [facility] 4.2.7.2.686 [facility] [id number] [place] [address] Branch 2021-08-09 2021-08-09 Outpatient R [facility] [id number] Univers 08:00:00 08:00:00 ity [facility] 2021-08-08 2021-08-08 Laboratory Only, Adc Test [facility] 1.2.840. [id number] Univers 12:00:00 12:15:00 Only Seda Lyn T [place] 350.1.13. 10 ity of [place] 4.2.7.[address] [facility] [id number] [facility] 353 Branch 2021-08-08 2021-08-08 Outpatient R DU LYNL [facility] [id number] Univers 12:00:00 12:00:00 ATANASOV, STRAHIL ity of [facility] 2021-07-23 2021-07-23 Orders Doctor ANA [id number] Univers 00:00:00 00:00:00 Only Unassigned, JUAN RAMON [id number] [facility] 4.2.7.2.686 [facility] [id number] [facility] 009 Branch 2021-07-17 2021-07-17 Telephone Eboni [facility] [id number] Univers 00:00:00 00:00:00 Seda Donovan MULTISPEC [id number] ity of [place] 4.2.7.2.[address] [facility] [id number] [facility] AND [place] 085 Branch [facility] 2021-07-10 2021-07-10 Telephone Eboni [facility] [id number] Univers 00:00:00 00:00:00 Seda T [place] [id number] ity of [facility] 4.2.7.2.686 [facility] [place] [facility] [place] [facility] PROFESSIO [id number] [place] [id number] [place] BUILDING 2021-04-29 2021-04-29 Office Services Associate 1, [facility] Sleep Lab Bed [facility] 1. 2.840.114 [id number] Univers 19:30:00 22:00:00 Visit Seda Lyn [place] 350.1.13. 10 ity of [place] 4.2.7.2.686 [facility] [id number] [facility] 193 Branch 2021-04-29 2021-04-29 Outpatient R DU LYNL [facility] [id number] Univers 19:30:00 19:30:00 ATADAY STRAHIL ity of [facility] 2021-04-29 2021-04-29 Orders Doctor PEREZ [id number] Univers 00:00:00 00:00:00 Only Unassigned, JUAN RAMON 350.1.13.10 ity of [facility] 4.2.7.2.686 Puneet as [phone] [facility] [address] 2021-04-28 2021-04-28 Laboratory Only, Adc Test [facility] 1.2.840. [id number] Univers 07:45:00 08:00:00 Only Tyshawn Tian 350.1.13.10 [place] [id number] [facility] [address] 2021-04-28 2021-04-28 Outpatient R ASMITA [facility] [id number] Univers 07:45:00 07:45:00 TYSHAWN ity [facility] 2021-04-16 2021-04-16 Office Eboni [facility] [id number] [id number] Univers 11:00:00 11:20:47 Visit Seda BARNES 350.1.13.10 ity [facility] 4.2.7.2.686 [facility] [id number] [place] dical [address] 2021-04-16 2021-04-16 Outpatient R JUDY LYNNHL [facility] [id number] Univers 11:00:00 11:20:47 DU LYNL andrew [facility] 2021-04-16 2021-04-16 Outpatient R DU LYNL [facility] [id number] Univers 11:00:00 11:00:00 DIONTEOV, STRAHIL ity [facility] 2021-04-16 2021-04-16 Outpatient R JUDY LYNNHCrystal [facility] [id number] Univers 11:00:00 11:00:00 DIONTEOV, STRAHIL ity [facility] 2021-04-16 2021-04-16 Orders Doctor PEREZ [id number] Univers 00:00:00 00:00:00 Only Unassigned, JUAN RAMON 350.1.13.10 ity [facility] 4.2.7.2.686 Puneet as [phone] [facility] [address] 2020-04-18 2020-04-18 Outpatient [facility] [id number] [address] [place] 00:00:00 00:00:[address] 2019-10-20 2019-10-20 [facility] [id number] [address] [place] 00:00:00 00:00:00 LUCY [address] 2019-07-18 2019-07-18 Outpatient ARMIN, [facility] [id number] [address] [place] 00:00:00 00:00:00 LUCY [address] 2018-11-17 2018-11-18 [facility] [id number] Memoria 15:09:00 04:59:00 iveth Sorto 03 [facility] 2018-11-17 2018-11-18 Outpatient [facility]Flavo [facility] [id number] Memoria 15:09:00 04:59:00 iveth Sorto 03 [facility] 2018-11-17 2018-11-17 Outpatient Danyell, [facility] [id number] 10:09:00 23:59:[address] [place] [address] 2018-11-17 2018-11-17 Outpatient [facility] [id number] [facility] 10:09:00 10:09:00 2018-05-26 2018-05-27 Outpatient [facility]Flavo [facility] [id number] Memoria 19:16:00 04:59:00 iveth Sorto 08 [facility] 2018-05-26 2018-05-27 Outpatient [facility] [id number] Memoria 19:16:00 04:59:00 iveth Sorto 08 [facility] 2018-05-26 2018-05-26 Outpatient Danyell, [facility] [id number] 14:16:00 23:59:[address] [place] [address] 2018-05-26 2018-05-26 Outpatient [facility] [id number] MHTW 14:16:00 14:16:00 2018-01-11 2018-01-11 Outpt Diag nullFlavo [facility] [id number] Memoria 13:30:00 13:30:00 Services r Outpatient 02 l Imaging [facility] 2018-01-11 2018-01-11 Outpt Diag nullFlavo [facility] [id number] Memoria 13:30:00 13:30:00 Services r Outpatient 02 l Imaging [facility] 2018-01-11 2018-01-11 Outpatient Danyell, [facility] [id number] 07:30:00 07:30:00 Philbert 02 John 2018-01-11 2018-01-11 Outpatient D[place]ell, [place] [id number] 07:30:00 07:30:00 Philbert 02 John 2018-01-03 2018-01-04 Outpt Diag nullFlavo [facility] [id number] Memoria 21:50:00 05:59:00 Services r Outpatient 01 l Imaging [facility] 2018-01-03 2018-01-04 Outpt Diag nullFlavo [facility] [id number] Memoria 21:50:00 05:59:00 Services r Outpatient 01 l Imaging [facility] 2018-01-03 2018-01-03 Outpatient Danyell, [place] [id number] 15:50:00 23:59:00 Philbert García Lopez 2016-11-06 2016-11-07 Outpt Diag nullFlavo [facility] [id number] Memoria 21:23:00 04:59:00 Services r Outpatient 00 l Imaging [facility] 2016-11-06 2016-11-07 Outpt Diag nullFlavo [facility] [id number] Memoria 21:23:00 04:59:00 Services r Outpatient 00 l Imaging [facility] 2016-11-06 2016-11-06 Outpatient Danyell, 37 [facility] [id number] 16:23:00 23:59:00 Philmitch Lopez 2014-10-19 2014-10-20 Outpatient nullFlavo [facility] [id number] Memoria 13:44:00 04:59:00 iveth Sorto [facility] 2014-10-19 2014-10-20 Outpatient nullFlavo [facility] [id number] Memoria 13:44:00 04:59:00 iveth Sorto [facility] 2014-10-19 2014-10-19 Outpatient MOIRA Bills [facility] [id number] 08:44:00 23:59:00 Alex Piña 2014-10-11 2014-10-11 EC nullFlavo [facility] [id number] Memoria 14:51:00 18:07:00 Emergency r Rafael The 02 [facility] 2014-10-11 2014-10-11 EC nullFlavo [facility] [id number] Memoria 14:51:00 18:07:00 Emergency r Rafael The 02 [facility] 2014-10-11 2014-10-11 Outpatient MOIRA Molina [facility] [id number] 09:51:00 13:07:00 Dwayne R Tomás 2014-10-10 2014-10-11 Outpatient nullFlavo [facility] [id number] Memoria 18:06:00 04:59:00 r Rafael [address] 2014-10-10 2014-10-11 Outpatient [facility] [id number] Memoria 18:06:00 04:59:00 r Rafael [address] 2014-10-10 2014-10-10 Outpatient MOIRA Child [facility] [id number] 13:06:00 23:59:00 Clarissa Cordell [place] 2012-02-29 2012-02-29 Outpatient nullFlavo The [id number] Memoria 15:58:00 15:58:[address] Rafael 2012-02-29 2012-02-29 Outpatient nullFlavo The [id number] Memoria 15:58:00 15:58:00 r [place] [address] [facility] 2012-01-07 2012-02-05 MHIE MHIE [id number] Memoria 08:45:00 23:59:00 06 [facility] 2012-01-07 2012-02-05 MHIE MHIE [id number] Memoria 08:45:00 23:59:00 06 [facility] 2011-12-07 2012-01-05 MHIE MHIE [id number] Memoria 14:39:00 23:59:00 05 crystal [facility] 2011-12-07 2012-01-05 [facility] [id number] Memoria 14:39:00 23:59:00 05 crystal [facility] 2011-11-06 2011-11-06 [facility] [id number] Memoria 15:28:00 15:28:00 04 [facility] 2011-11-06 2011-11-06 [facility] [place] [id number] Memoria 15:28:00 15:28:00 04 crystal [facility] 2011-09-28 2011-10-27 [facility] [place] [id number] Memoria 08:15:00 23:59:00 03 crystal Rafael 2011-09-28 2011-10-27 [facility] [place] [id number] Memoria 08:15:00 23:59:00 03 crystal [facility] 2011-08-28 2011-09-26 [facility] [place] [id number] Memoria 13:00:00 23:59:00 02 crystal Rafael 2011-08-28 2011-09-26 [facility] [place] [id number] Memoria 13:00:00 23:59:00 02 crystal [place] 2011-07-28 2011-08-26 [facility] [id number] Memoria 12:53:00 23:59:00 01 crystal Rafael 2011-07-28 2011-08-26 [facility] [place] [id number] Memoria 12:53:00 23:59:00 01 crystal Rafael 2011-06-22 2011-06-22 [facility] [id number] Memoria 10:00:00 10:00:00 00 crystal [place] 2011-06-22 [facility] [id number] 10:00:00 10:00:00 00 crystal GamezRafael Results Test Description Test Time Test Comments Results Result Comments Source Urinalysis macro (dipstick) panel - Urine 2022-02-26 09:38:0 0 Test Item Value Reference Range Interpretation Comme nts leukocytes (test code = negative neg leukocytes) urobilinogen (test code = 0.2 E.U./dL sm amt (.5-1mg/dL) urobilinogen) protein (test code = negative See_Comment [Autom ated message] The protein) system which ge nerated this result tra nsmitted reference range : <=150 mg/d. The refer ence range was not used to interpret this result as normal/abnormal . pH (test code = pH) 6.5 4.5-8 blood (test code = blood) negative See_Comment [ Automated message] The system which [employer] nerated this result tra nsmitted reference range : <=3 RBC. The reference r teri was not used to int erpret this result as normal/abnormal . specific gravity (test code 1.010 1.005-1.025 = specific gravity) ketone (test code = ketone) negative none bilirubin (test code = negative neg bilirubin) glucose (test code = 250 mg/dL See_Comment A [Autom ated message] The glucose) system which [employer] nerated this result tra nsmitted reference range : <=130 mg/d. The refer ence range was not used to interpret this result as normal/abnormal . color (test code = color) yellow yellow clarity (test code = clear clear or cloudy clarity) nitrite (test code = negative neg nitrite) [place] [facility], serum or qwgypa0524-03-17 00:00:00 Test Item Value Reference Range Interpretation Comments Prostate specific Ag 1.00 NG/mL See_Comment [Autom ated message] [Mass/volume] in The system which Serum or Plasma generated th is result (test code = 2857-1) transmi tted reference range: < or = 4 .00. The reference range was not used to interpr et this result as normal/abnormal . [facility] UrologyUrinalysis macro (dipstick) panel - [id number] 09:27:00 Test Item Value Reference Range Interpretation [...] nitrite (test code = negative neg nitrite) [facility] UrologyUrinalysis macro (dipstick) panel - [id number] 09:27:00 Test Item Value Reference Range Interpretation [...] nitrite (test code = negative neg nitrite) [facility]jtqvagJYZVMQEZEA9240-92-31 15:44:00 Test Item Value Reference Range Interpretation Comments D-Dimer (test code = D-Dimer) 2.05 [facility] CenterZyqnhooFSNBFKVBTC1805-12-61 15:44:00 Test Item Value Reference Range Interpretation Comments D-Dimer (test code = D-Dimer) 2.05 [facility]BkjncheMGCGRFGYPN7987-05-97 15:44:00 Test Item Value Reference Range Interpretation Comments D-Dimer (test code = D-Dimer) 2.05 [facility] HospitalCollections Marketing CenterLEXINGTON [facility] MED[facility] [id number] 15:24:00 Test Item Value Reference Range Interpretation Comments CK MB Index (test 1.0 See_Comment [Automate d message] The code = CK MB Index) [facility] generated this result transmit carola reference range : <=2.5. The reference range was not used to interpr et this result as laly l/abnormal. [facility] [id number] 15:24:00 Test Item Value Reference Range Interpretation Comments Total CK (test code = Total CK) 67 12-191 [facility] [id number] 15:24:00 Test Item Value Reference Range Interpretation Comments CK MB (test code = CK MB) 0.7 0.5-3.6 [facility] [id number] 15:24:00 Test Item Value Reference Range Interpretation Comments Troponin-I (test code no gt See_Comment [Auto mated message] The = Troponin-I) system which g enerated this result transmit carola reference range : <=0.40. The reference r teri was not used to interpr et this result as laly l/abnormal. [facility] HospitalBlackaeon InternationalLZONV6078-92-54 15:24:00 Test Item Value Reference Range Interpretation Comments Phosphorus (test code = Phosphorus) 3.4 2.5-4.5 [facility] HospitalJayride.[facility] [id number] 15:24:00 Test Item Value Reference Range Interpretation Comments Magnesium Lvl (test code = Magnesium 1.8 1.8-2.4 Lvl) [facility] [id number] 15:24:00 Test Item Value Reference Range Interpretation Comments eGFR (test code = eGFR) 79 [facility] HospitalVumanity Media [id number] 15:24:00 Test Item Value Reference Range Interpretation Comments AST (test code = AST) 14 See_Comment [Auto mated message] The system which ge nerated this result transmit carola reference range : <=37. The reference range was not used to interpr et this result as laly l/abnormal. [facility]2015-09-03 15:24:00 Test Item Value Reference Range Interpretation Comments Alk Phos (test code = Alk Phos) 51 39-136 [facility]2015-09-03 15:24:00 Test Item Value Reference Range Interpretation Comments Bili Total (test code = Bili Total) 0.3 0.2-1.3 [facility]2015-09-03 15:24:00 Test Item Value Reference Range Interpretation Comments AGAP (test code = AGAP) 9.2 10.0-20.0 [facility]2015-09-03 15:24:00 Test Item Value Reference Range Interpretation Comments B/C Ratio (test code = B/C Ratio) 11 6-25 [facility]2015-09-03 15:24:00 Test Item Value Reference Range Interpretation Comments Globulin (test code = Globulin) 2.7 2.0-4.0 [facility]2015-09-03 15:24:00 Test Item Value Reference Range Interpretation Comments A/G Ratio (test code = A/G Ratio) 1.4 0.7-1.6 [facility]2015-09-03 15:24:00 Test Item Value Reference Range Interpretation Comments Total Protein (test code = Total 6.5 6.4-8.4 Protein) [facility]2015-09-03 15:24:00 Test Item Value Reference Range Interpretation Comments Calcium Lvl (test code = Calcium Lvl) 8.8 8.5-10.5 [facility]2015-09-03 15:24:00 Test Item Value Reference Range Interpretation Comments CO2 (test code = CO2) 30 24-32 [facility]2015-09-03 15:24:00 Test Item Value Reference Range Interpretation Comments Albumin Lvl (test code = Albumin Lvl) 3.8 3.5-5.0 [facility]2015-09-03 15:24:00 Test Item Value Reference Range Interpretation Comments ALT (test code = ALT) 33 See_Comment [Auto mated message] The system which ge nerated this result transmit carola reference range : <=65. The reference range was not used to interpr et this result as laly l/abnormal. [facility]2015-09-03 15:24:00 Test Item Value Reference Range Interpretation Comments BUN (test code = BUN) 12 7-22 [facility]2015-09-03 15:24:00 Test Item Value Reference Range Interpretation Comments Glucose Lvl (test code = Glucose Lvl) 105 70-99 [facility]2015-09-03 15:24:00 Test Item Value Reference Range Interpretation Comments Creatinine Lvl (test code = Creatinine 1.1 0.5-1.4 Lvl) [facility]2015-09-03 15:24:00 Test Item Value Reference Range Interpretation Comments Sodium Lvl (test code = Sodium Lvl) 139 135-145 [facility]2015-09-03 15:24:00 Test Item Value Reference Range Interpretation Comments Potassium Lvl (test code = Potassium 4.2 3.5-5.1 Lvl) [facility]2015-09-03 15:24:00 Test Item Value Reference Range Interpretation Comments Chloride Lvl (test code = Chloride Lvl) 104 95-109 [facility] CenterVdoapeuQVOVIIUEXL4536-58-85 15:24:00 Test Item Value Reference Range Interpretation Comments Monocytes (test code = Monocytes) 9.0 2.0-12.0 [facility] CenterApwqiadWWQYGPQQWR4434-74-71 15:24:00 Test Item Value Reference Range Interpretation Comments Lymphocytes (test code = Lymphocytes) 28.4 20.0-40.0 [facility] CenterAxerwwdIYBDROPKET8004-43-27 15:24:00 Test Item Value Reference Range Interpretation Comments Segs (test code = Segs) 59.6 45.0-75.0 [facility] CenterRvikjtvCGUNOLOEGU1156-57-21 15:24:00 Test Item Value Reference Range Interpretation Comments Lymphocytes # (test code = Lymphocytes 1.6 1.0-5.5 #) [facility] CenterMxldvpyCVQNUYYFRZ5903-22-79 15:24:00 Test Item Value Reference Range Interpretation Comments Segs-Bands # (test code = Segs-Bands #) 3.4 1.5-8.1 [facility] CenterGjbmbejQYXNTEGUXZ8906-68-28 15:24:00 Test Item Value Reference Range Interpretation Comments Eosinophils (test code = 2.5 See_Comment [A utomated message] The Eosinophils) system which ge nerated this result tra nsmitted reference range : <=4.0. The reference r teri was not used to int erpret this result as normal/abnormal . [facility] CenterUaavvkaCEKYNRPVMX0096-56-05 15:24:00 Test Item Value Reference Range Interpretation Comments Monocytes # (test code 0.5 See_Comment [Aut omated message] The = Monocytes #) system which generated this result tra nsmitted reference range : <=0.8. The reference r teri was not used to int erpret this result as normal/abnormal . [facility] CenterTiomnxzCBAPQOLNEJ7130-87-78 15:24:00 Test Item Value Reference Range Interpretation Comments Basophils (test code = 0.5 See_Comment [Aut omated message] The Basophils) system which ge nerated this result tra nsmitted reference range : <=1.0. The reference r teri was not used to int erpret this result as normal/abnormal . [facility] CenterQbhdywtEGHBVDDSHC8207-91-26 15:24:00 Test Item Value Reference Range Interpretation Comments Basophils # (test code 0.0 See_Comment [Aut omated message] The = Basophils #) system which generated this result tra nsmitted reference range : <=0.2. The reference r teri was not used to int erpret this result as normal/abnormal . [facility] CenterFwxlnbcQUYSHNBWFP4180-68-90 15:24:00 Test Item Value Reference Range Interpretation Comments Eosinophils # (test code 0.1 See_Comment [A utomated message] The = Eosinophils #) system whic h generated this result tra nsmitted reference range : <=0.5. The reference r teri was not used to int erpret this result as normal/abnormal . [facility] CenterXvqolnsCMRVDUTQJM3500-17-12 15:24:00 Test Item Value Reference Range Interpretation Comments INR (test code = INR) 0.93 0.85-1.17 [facility] CenterClzfgmyGIFNBQTVRM5329-60-43 15:24:00 Test Item Value Reference Range Interpretation Comments PTT (test code = PTT) 25.5 s 22.9-35.8 [facility] CenterUhhftuqMBERXFBVRD8157-04-11 15:24:00 Test Item Value Reference Range Interpretation Comments PT (test code = PT) 12.8 s 12.0-14.7 [facility] CenterMdgxkvsUYPGHQZWIB0959-47-85 15:24:00 Test Item Value Reference Range Interpretation Comments WBC (test code = WBC) 5.6 3.7-10.4 [facility]TdojxdzFNZPPJEYRF7740-07-36 15:24:00 Test Item Value Reference Range Interpretation Comments MCV (test code = MCV) 91.8 80.0-94.0 [facility] CenterKxvapofKQZCMTUYLK3429-53-56 15:24:00 Test Item Value Reference Range Interpretation Comments Hgb (test code = Hgb) 14.3 14.0-18.0 [facility] CenterBjubatfRZRUOUZBDN5469-14-98 15:24:00 Test Item Value Reference Range Interpretation Comments RBC (test code = RBC) 4.75 4.70-6.10 [facility] CenterZbyxowlSENJAETRAI1929-03-93 15:24:00 Test Item Value Reference Range Interpretation Comments Platelet (test code = Platelet) 219 133-450 [facility] CenterPewgdkoHXQTZQJVIO1720-73-03 15:24:00 Test Item Value Reference Range Interpretation Comments MPV (test code = MPV) 8.2 7.4-10.4 [facility] CenterUtajemxPXEUGZGLAE9803-22-48 15:24:00 Test Item Value Reference Range Interpretation Comments RDW (test code = RDW) 13.3 11.5-14.5 [facility] HospitalCfijsknCSSDUEWTWZ6981-43-97 15:24:00 Test Item Value Reference Range Interpretation Comments MCH (test code = MCH) 30.2 pg 27.0-31.0 [facility] HospitalQmlrcrkHHTTRMVZCA1371-53-72 15:24:00 Test Item Value Reference Range Interpretation Comments MCHC (test code = MCHC) 32.9 32.0-36.0 [facility] HospitalTcpjmlcJJISBOOCCW1193-65-89 15:24:00 Test Item Value Reference Range Interpretation Comments Hct (test code = Hct) 43.6 42.0-54.0 [facility]Collections [facility] CenterLEX[facility] [id number] 15:24:00 Test Item Value Reference Range Interpretation Comments CK MB Index (test 1.0 See_Comment [Automate d message] The code = CK MB Index) [facility] generated this result transmit carola reference range : <=2.5. The reference range was not used to interpr et this result as laly l/abnormal. [facility] HospitalBebitos [id number] 15:24:00 Test Item Value Reference Range Interpretation Comments Total CK (test code = Total CK) 67 12-191 [facility] HospitalCARActive Mind TechnologyAC [id number] 15:24:00 Test Item Value Reference Range Interpretation Comments CK MB (test code = CK MB) 0.7 0.5-3.6 [facility] HospitalCARActive Mind TechnologyAC [id number] 15:24:00 Test Item Value Reference Range Interpretation Comments Troponin-I (test code no gt See_Comment [Auto mated message] The = Troponin-I) system which g enerated this result transmit carola reference range : <=0.40. The reference r teri was not used to interpr et this result as laly l/abnormal. [facility] [employer] [id number] 15:24:00 Test Item Value Reference Range Interpretation Comments Phosphorus (test code = Phosphorus) 3.4 2.5-4.5 [facility] [employer] [id number] 15:24:00 Test Item Value Reference Range Interpretation Comments Magnesium Lvl (test code = Magnesium 1.8 1.8-2.4 Lvl) [facility] [employer] [id number] 15:24:00 Test Item Value Reference Range Interpretation Comments eGFR (test code = eGFR) 79 [facility]Jay[facility] [id number] 15:24:00 Test Item Value Reference Range Interpretation Comments AST (test code = AST) 14 See_Comment [Auto mated message] The system which ge nerated this result transmit carola reference range : <=37. The reference range was not used to interpr et this result as laly l/abnormal. [facility] [employer] [id number] 15:24:00 Test Item Value Reference Range Interpretation Comments Alk Phos (test code = Alk Phos) 51 39-136 [facility] [employer] [id number] 15:24:00 Test Item Value Reference Range Interpretation Comments Bili Total (test code = Bili Total) 0.3 0.2-1.3 [facility] [employer] [id number] 15:24:00 Test Item Value Reference Range Interpretation Comments AGAP (test code = AGAP) 9.2 10.0-20.0 [facility] [employer] [id number] 15:24:00 Test Item Value Reference Range Interpretation Comments B/C Ratio (test code = B/C Ratio) 11 6-25 [facility] [employer] [id number] 15:24:00 Test Item Value Reference Range Interpretation Comments Globulin (test code = Globulin) 2.7 2.0-4.0 [facility]2015-09-03 15:24:00 Test Item Value Reference Range Interpretation Comments A/G Ratio (test code = A/G Ratio) 1.4 0.7-1.6 [facility]2015-09-03 15:24:00 Test Item Value Reference Range Interpretation Comments Total Protein (test code = Total 6.5 6.4-8.4 Protein) [facility]2015-09-03 15:24:00 Test Item Value Reference Range Interpretation Comments Calcium Lvl (test code = Calcium Lvl) 8.8 8.5-10.5 [facility]2015-09-03 15:24:00 Test Item Value Reference Range Interpretation Comments CO2 (test code = CO2) 30 24-32 [facility]2015-09-03 15:24:00 Test Item Value Reference Range Interpretation Comments Albumin Lvl (test code = Albumin Lvl) 3.8 3.5-5.0 [facility]2015-09-03 15:24:00 Test Item Value Reference Range Interpretation Comments ALT (test code = ALT) 33 See_Comment [Auto mated message] The system which ge nerated this result transmit carola reference range : <=65. The reference range was not used to interpr et this result as laly l/abnormal. [facility]2015-09-03 15:24:00 Test Item Value Reference Range Interpretation Comments BUN (test code = BUN) 12 7-22 [facility]2015-09-03 15:24:00 Test Item Value Reference Range Interpretation Comments Glucose Lvl (test code = Glucose Lvl) 105 70-99 [facility]2015-09-03 15:24:00 Test Item Value Reference Range Interpretation Comments Creatinine Lvl (test code = Creatinine 1.1 0.5-1.4 Lvl) [facility]2015-09-03 15:24:00 Test Item Value Reference Range Interpretation Comments Sodium Lvl (test code = Sodium Lvl) 139 135-145 [facility]2015-09-03 15:24:00 Test Item Value Reference Range Interpretation Comments Potassium Lvl (test code = Potassium 4.2 3.5-5.1 Lvl) [facility]2015-09-03 15:24:00 Test Item Value Reference Range Interpretation Comments Chloride Lvl (test code = Chloride Lvl) 104 95-109 [facility] CenterSdwcrglJXXQKBOJDO0599-52-12 15:24:00 Test Item Value Reference Range Interpretation Comments Monocytes (test code = Monocytes) 9.0 2.0-12.0 [facility] CenterNferalzOUUKGODCDS9306-75-54 15:24:00 Test Item Value Reference Range Interpretation Comments Lymphocytes (test code = Lymphocytes) 28.4 20.0-40.0 [facility] CenterLqtbbauHHFRAEOUCM2070-24-63 15:24:00 Test Item Value Reference Range Interpretation Comments Segs (test code = Segs) 59.6 45.0-75.0 [facility] CenterLryydscYZLVPRAOAI2710-48-54 15:24:00 Test Item Value Reference Range Interpretation Comments Lymphocytes # (test code = Lymphocytes 1.6 1.0-5.5 #) [facility] CenterEkgdactNDSWPRHUVK7083-28-72 15:24:00 Test Item Value Reference Range Interpretation Comments Segs-Bands # (test code = Segs-Bands #) 3.4 1.5-8.1 [facility] CenterTgfbbroUJSVJSYTLS5764-52-07 15:24:00 Test Item Value Reference Range Interpretation Comments Eosinophils (test code = 2.5 See_Comment [A utomated message] The Eosinophils) system which ge nerated this result tra nsmitted reference range : <=4.0. The reference r teri was not used to int erpret this result as normal/abnormal . [facility] CenterJyrowqzXUZJOPWIWL8851-34-49 15:24:00 Test Item Value Reference Range Interpretation Comments Monocytes # (test code 0.5 See_Comment [Aut omated message] The = Monocytes #) system which generated this result tra nsmitted reference range : <=0.8. The reference r teri was not used to int erpret this result as normal/abnormal . [facility] CenterPqvzmejTXMELMFTGV2807-25-21 15:24:00 Test Item Value Reference Range Interpretation Comments Basophils (test code = 0.5 See_Comment [Aut omated message] The Basophils) system which ge nerated this result tra nsmitted reference range : <=1.0. The reference r teri was not used to int erpret this result as normal/abnormal . [facility] CenterIdbfgaaCVBBNILXME5789-35-94 15:24:00 Test Item Value Reference Range Interpretation Comments Basophils # (test code 0.0 See_Comment [Aut omated message] The = Basophils #) system which generated this result tra nsmitted reference range : <=0.2. The reference r teri was not used to int erpret this result as normal/abnormal . [facility] CenterMtqtphgJBCCINTOTP7966-59-09 15:24:00 Test Item Value Reference Range Interpretation Comments Eosinophils # (test code 0.1 See_Comment [A utomated message] The = Eosinophils #) system whic h generated this result tra nsmitted reference range : <=0.5. The reference r teri was not used to int erpret this result as normal/abnormal . [facility] CenterZvizsowSDWZDTXLXU2734-66-78 15:24:00 Test Item Value Reference Range Interpretation Comments INR (test code = INR) 0.93 0.85-1.17 [facility] CenterMboudylEHWGZAYWSD8097-59-78 15:24:00 Test Item Value Reference Range Interpretation Comments PTT (test code = PTT) 25.5 s 22.9-35.8 [facility] CenterBlbbeyjNQHFQAJNES5139-91-35 15:24:00 Test Item Value Reference Range Interpretation Comments PT (test code = PT) 12.8 s 12.0-14.7 [facility] CenterVkwcijeMWOUKWKUPC2675-38-74 15:24:00 Test Item Value Reference Range Interpretation Comments WBC (test code = WBC) 5.6 3.7-10.4 [facility] CenterSitnoiuJKZWSHUTEM8023-37-61 15:24:00 Test Item Value Reference Range Interpretation Comments MCV (test code = MCV) 91.8 80.0-94.0 [facility] CenterEkoyoawJXFTANCYUR7949-72-49 15:24:00 Test Item Value Reference Range Interpretation Comments Hgb (test code = Hgb) 14.3 14.0-18.0 [facility] CenterJuhgrdwNUEQNNRGQC5082-97-50 15:24:00 Test Item Value Reference Range Interpretation Comments RBC (test code = RBC) 4.75 4.70-6.10 [facility] CenterPioilupVYPCSJCBLH4098-89-53 15:24:00 Test Item Value Reference Range Interpretation Comments Platelet (test code = Platelet) 219 133-450 [facility] CenterVsgipqfIUHJBCYELO7296-98-72 15:24:00 Test Item Value Reference Range Interpretation Comments MPV (test code = MPV) 8.2 7.4-10.4 [facility]IewecslVXYCXNDHYJ7039-91-48 15:24:00 Test Item Value Reference Range Interpretation Comments RDW (test code = RDW) 13.3 11.5-14.5 [facility] HospitalCucroonYFMVKDNJCA9624-49-23 15:24:00 Test Item Value Reference Range Interpretation Comments MCH (test code = MCH) 30.2 pg 27.0-31.0 [facility]YwdxinpDFERHWEDIS2196-15-85 15:24:00 Test Item Value Reference Range Interpretation Comments MCHC (test code = MCHC) 32.9 32.0-36.0 [facility] HospitalOhufrhnADPETYERPV2033-31-79 15:24:00 Test Item Value Reference Range Interpretation Comments Hct (test code = Hct) 43.6 42.0-54.0 [facility] 15:24:00 Test Item Value Reference Range Interpretation Comments CK MB Index (test 1.0 See_Comment [Automate d message] The code = CK MB Index) system w [facility] generated this result transmit carola reference range : <=2.5. The reference range was not used to interpr et this result as laly l/abnormal. [facility] HospitalKl[facility] [id number] 15:24:00 Test Item Value Reference Range Interpretation Comments Total CK (test code = Total CK) 67 12-191 [facility] KMDUNLG9978-08-93 15:24:00 Test Item Value Reference Range Interpretation Comments CK MB (test code = CK MB) 0.7 0.5-3.6 [facility] [id number] 15:24:00 Test Item Value Reference Range Interpretation Comments Troponin-I (test code no gt See_Comment [Auto mated message] The = Troponin-I) system which g enerated this result transmit carola reference range : <=0.40. The reference r teri was not used to interpr et this result as laly l/abnormal. [employer] [id number] 15:24:00 Test Item Value Reference Range Interpretation Comments Phosphorus (test code = Phosphorus) 3.4 2.5-4.5 [facility] HermSand[facility] CenterRXDXG7486-63-59 15:24:00 Test Item Value Reference Range Interpretation Comments Magnesium Lvl (test code = Magnesium 1.8 1.8-2.4 Lvl) [facility]2015-09-03 15:24:00 Test Item Value Reference Range Interpretation Comments eGFR (test code = eGFR) 79 [facility]2015-09-03 15:24:00 Test Item Value Reference Range Interpretation Comments AST (test code = AST) 14 See_Comment [Auto mated message] The system which ge nerated this result transmit carola reference range : <=37. The reference range was not used to interpr et this result as laly l/abnormal. [facility]2015-09-03 15:24:00 Test Item Value Reference Range Interpretation Comments Alk Phos (test code = Alk Phos) 51 39-136 [facility]2015-09-03 15:24:00 Test Item Value Reference Range Interpretation Comments Bili Total (test code = Bili Total) 0.3 0.2-1.3 [facility]2015-09-03 15:24:00 Test Item Value Reference Range Interpretation Comments AGAP (test code = AGAP) 9.2 10.0-20.0 [facility]2015-09-03 15:24:00 Test Item Value Reference Range Interpretation Comments B/C Ratio (test code = B/C Ratio) 11 6-25 [id number] 15:24:00 Test Item Value Reference Range Interpretation Comments Globulin (test code = Globulin) 2.7 2.0-4.0 [facility]2015-09-03 15:24:00 Test Item Value Reference Range Interpretation Comments A/G Ratio (test code = A/G Ratio) 1.4 0.7-1.6 [place] [id number] 15:24:00 Test Item Value Reference Range Interpretation Comments Total Protein (test code = Total 6.5 6.4-8.4 Protein) [facility]2015-09-03 15:24:00 Test Item Value Reference Range Interpretation Comments Calcium Lvl (test code = Calcium Lvl) 8.8 8.5-10.5 [facility]2015-09-03 15:24:00 Test Item Value Reference Range Interpretation Comments CO2 (test code = CO2) 30 24-32 [facility]2015-09-03 15:24:00 Test Item Value Reference Range Interpretation Comments Albumin Lvl (test code = Albumin Lvl) 3.8 3.5-5.0 [facility]2015-09-03 15:24:00 Test Item Value Reference Range Interpretation Comments ALT (test code = ALT) 33 See_Comment [Auto mated message] The system which ge nerated this result transmit carola reference range : <=65. The reference range was not used to interpr et this result as laly l/abnormal. [facility]2015-09-03 15:24:00 Test Item Value Reference Range Interpretation Comments BUN (test code = BUN) 12 7-22 [facility]2015-09-03 15:24:00 Test Item Value Reference Range Interpretation Comments Glucose Lvl (test code = Glucose Lvl) 105 70-99 [facility]2015-09-03 15:24:00 Test Item Value Reference Range Interpretation Comments Creatinine Lvl (test code = Creatinine 1.1 0.5-1.4 Lvl) [facility]2015-09-03 15:24:00 Test Item Value Reference Range Interpretation Comments Sodium Lvl (test code = Sodium Lvl) 139 135-145 [facility]2015-09-03 15:24:00 Test Item Value Reference Range Interpretation Comments Potassium Lvl (test code = Potassium 4.2 3.5-5.1 Lvl) [facility]2015-09-03 15:24:00 Test Item Value Reference Range Interpretation Comments Chloride Lvl (test code = Chloride Lvl) 104 95-109 [facility] CenterGorulrhDOZSISHZGS3919-51-81 15:24:00 Test Item Value Reference Range Interpretation Comments Monocytes (test code = Monocytes) 9.0 2.0-12.0 [facility] CenterTtckmxpPTUPERAVOY6114-32-11 15:24:00 Test Item Value Reference Range Interpretation Comments Lymphocytes (test code = Lymphocytes) 28.4 20.0-40.0 [facility] CenterTuxazewIROLUXEVZQ4967-71-82 15:24:00 Test Item Value Reference Range Interpretation Comments Segs (test code = Segs) 59.6 45.0-75.0 [facility] CenterDghtvqpSOHRTYZMHX2390-80-16 15:24:00 Test Item Value Reference Range Interpretation Comments Lymphocytes # (test code = Lymphocytes 1.6 1.0-5.5 #) [facility] CenterAgnetaeFWVFONBEUS6994-93-76 15:24:00 Test Item Value Reference Range Interpretation Comments Segs-Bands # (test code = Segs-Bands #) 3.4 1.5-8.1 [facility] CenterKwiwxwbLUJXNXXPVD4129-82-54 15:24:00 Test Item Value Reference Range Interpretation Comments Eosinophils (test code = 2.5 See_Comment [A utomated message] The Eosinophils) system which ge nerated this result tra nsmitted reference range : <=4.0. The reference r teri was not used to int erpret this result as normal/abnormal . [facility] CenterKyjlnigUBIUUMVXKR7880-43-92 15:24:00 Test Item Value Reference Range Interpretation Comments Monocytes # (test code 0.5 See_Comment [Aut omated message] The = Monocytes #) system which generated this result tra nsmitted reference range : <=0.8. The reference r teri was not used to int erpret this result as normal/abnormal . [facility] CenterSkvbumcMLLRTZOOLP4217-87-18 15:24:00 Test Item Value Reference Range Interpretation Comments Basophils (test code = 0.5 See_Comment [Aut omated message] The Basophils) system which ge nerated this result tra nsmitted reference range : <=1.0. The reference r teri was not used to int erpret this result as normal/abnormal . [facility] CenterVcssikhMEMUCOPTRU3565-20-37 15:24:00 Test Item Value Reference Range Interpretation Comments Basophils # (test code 0.0 See_Comment [Aut omated message] The = Basophils #) system which generated this result tra nsmitted reference range : <=0.2. The reference r teri was not used to int erpret this result as normal/abnormal . [facility] CenterPznjsiyVKZNXWIHWF2890-94-65 15:24:00 Test Item Value Reference Range Interpretation Comments Eosinophils # (test code 0.1 See_Comment [A utomated message] The = Eosinophils #) system [facility] generated this result tra nsmitted reference range : <=0.5. The reference r teri was not used to int erpret this result as normal/abnormal . [facility] CenterRtyxjdfODINMDIAFD0725-82-12 15:24:00 Test Item Value Reference Range Interpretation Comments INR (test code = INR) 0.93 0.85-1.17 [facility] CenterGsmcritJLJNQCHUBD3499-93-14 15:24:00 Test Item Value Reference Range Interpretation Comments PTT (test code = PTT) 25.5 s 22.9-35.8 [facility] CenterZpkkycxROULHAHYLJ9571-51-19 15:24:00 Test Item Value Reference Range Interpretation Comments PT (test code = PT) 12.8 s 12.0-14.7 [facility] CenterQlzojnhOCLKKNJWBY0162-75-99 15:24:00 Test Item Value Reference Range Interpretation Comments WBC (test code = WBC) 5.6 3.7-10.4 [facility] CenterGavcajoPKZDEBLRHL9312-46-58 15:24:00 Test Item Value Reference Range Interpretation Comments MCV (test code = MCV) 91.8 80.0-94.0 [facility] CenterLalwbicYALOONFLIY4562-92-49 15:24:00 Test Item Value Reference Range Interpretation Comments Hgb (test code = Hgb) 14.3 14.0-18.0 [facility] CenterQsuhmphAFKDZSEQKI8257-53-22 15:24:00 Test Item Value Reference Range Interpretation Comments RBC (test code = RBC) 4.75 4.70-6.10 [facility] CenterMorjsbeISRASVDKIR8151-82-11 15:24:00 Test Item Value Reference Range Interpretation Comments Platelet (test code = Platelet) 219 133-450 [facility] CenterMyvbpsgLMKZUILBUL2140-62-61 15:24:00 Test Item Value Reference Range Interpretation Comments MPV (test code = MPV) 8.2 7.4-10.4 [facility] CenterAecklqzHBXWWTXXFT8497-09-47 15:24:00 Test Item Value Reference Range Interpretation Comments RDW (test code = RDW) 13.3 11.5-14.5 [facility] CenterOddowauUTVVTEUSCH9912-88-74 15:24:00 Test Item Value Reference Range Interpretation Comments MCH (test code = MCH) 30.2 pg 27.0-31.0 [facility] CenterVnruwriVEDAVFSTYY6771-38-82 15:24:00 Test Item Value Reference Range Interpretation Comments MCHC (test code = MCHC) 32.9 32.0-36.0 [facility] CenterFksqstwSJMUULPQEG4216-56-10 15:24:00 Test Item Value Reference Range Interpretation Comments Hct (test code = Hct) 43.6 42.0-54.0 [facility] Notes Date/Time Note Provider Source 2018-11-17 PROCEDURE INFORMATION: Terry santos 10:24:00-00:00 Exam: US Scrotum Exam date and time: 11/17/2018 10:27 AM Clinical history: 52 years old, male; Scrotum p ain; Additional info: /left scrotal mass TECHNIQUE: Imaging protocol: Real-time ultrasound of the s crotum and contents with color Doppler and image documentation. COMPARISON: No relevant prior studies available. TECHNIQUE: Songraphic imaging performed of the scrotum and contents with Doppler analysis. FINDINGS: TESTES: The right testicle measures 5.3 x 3.0 x 2.7 cm. The left testicle measures 4.9 x 2.3 x 3.5 cm. There is normal bilateral testicular contour and morphology. The Doppler images of the te sticles show normal blood flow at the time of exam. There are no testicular masses or testicular ramon cifications. EPIDIDYMIDES: There is asymmetric enlargem ent and increased blood flow to the left epididymis suggesting epididymitis. The right epididymal he ad, body and tail regions are unremarkable. SCROTUM: There is a small right hydro shaji. There is no evidence of varicoceles. There is no scrotal edema. IMPRESSION: 1. Findings suggesting left epididymitis. 2. Small right hydrocele. Jim Olsen MD On 11/17/2018 11:39:25; VR-RWOO [id number] 2018-10-29 [facility] 22:31:00-00:00 [facility] ([facility]) EMERGENCY PROVIDER REPORT REPORT#:[id number] REPORT STATUS: Signed DATE:10/29/18 TIME: 2230 PATIENT: THELMA ARTEAGA UNIT #: [id number] ROOM/BED: AGE: 52 SEX: M PCP PHYS: DOES_NOT KNOW SERVICE AUTHOR: Liliya Phillips * ALL edits or amendments must be made on the [employer]/computer document * HPI-Extremity Prob Lower General Confirmed Patient Yes Patient Type New patient Initial Greet Date/Time 10/29/182157 Assumed Care at Time 2230 Date 10/29/[address] Knapp Presentation Chief Complaint "Requesting to have the cast rem ioana of his left leg" Hx Obtained From Patient Onset Occurred Days ago (5) Symptom Duration Since onset Free Text HPI Notes Free Text HPI Notes The patient presented to the ER wanting his cast removed which was placed by an orthopedic surgeon 5 days ag o, the patient reports that he got it wet and wants it removed, he reports that he does have an appointment with his orthopedic on Wednesday. Past Medical History - Adult Stated Complaint WATER GOT INTO CAST LEFT LEG Allergies Coded Allergies: No Known Allergies (10/29/18) Home Medications Reported Medications No Known Home Medications Smoking status for patients 13 years old or olde r: Never Smoker Physical Exam Vital Signs Vital Signs First Documented: Result Date Time Pulse Ox 95 10/29 2157 B/P 137/89 10/29 2157 B/P Mean 105 10/29 2157 O2 Delivery Room air 10/29 2157 Temp 98.3 10/29 2157 Pulse 92 10/29 2157 Resp 16 10/29 2157 Last Documented: Result Date Time Pulse Ox 95 10/29 2157 B/P 137/89 10/29 2157 B/P Mean 105 10/29 2157 O2 Delivery Room air 10/29 2157 Temp 98.3 10/29 2157 Pulse 92 10/29 2157 Resp 16 10/29 2157 Review of Vital Signs Reviewed Re-Evaluation MDM Free Text MDM Notes Additional Text The RN reported that the mary kan demanded that his cast should be removed in the ER. Re-Evaluation/Progress Re-Evaluation/Progress Text/Dict Note When I went in the room to evaluate patient. Mary kan reports he wants his cast removed. Informed patie nt that I would do an evaluation to make sure there is no medical emergency and if there is no medic al emergency present he will have to follow-up with his orthopedic carlos rgeon. At that time patient refused to answer any questions, or evaluation and walked o ut of the ER. Time of Re-Eval 2232 Patient Discharge Departure Vital Signs/Condition Vital Signs First Documented: Result Date Time Pulse Ox 95 10/29 2157 B/P 137/89 10/29 2157 B/P Mean 105 10/29 2157 O2 Delivery Room air 10/29 2157 Temp 98.3 10/29 2157 Pulse 92 10/29 2157 Resp 10/29 Last Documented: Result Date Time Pulse Ox 95 10/29 2157 B/P 137/89 10/29 2157 B/P Mean 105 10/29 2157 O2 Delivery Room air 10/29 2157 Temp 98.3 10/29 2157 Pulse 92 10/29 2157 Resp 16 10/29 2157 All vital signs available at the time of this en try have been reviewed. Clinical Impression Clinical Impression Primary Impression: Encounter for cast removal Disposition Decision Other )( Time 2234 )( Date 10/29/18 Text/Dict Note Patient refused exam as I did tell him that I wo uld not be able to remove his cast if there is no medical emergency, and he wa lked out of the ER Electronically Signed by Liliya Phillips on 10/10 03/29 at 1500 RPT #:[id number] END OF REPORT 2018-10-29 [facility] 22:31:00-00:00 [facility] ([facility]) EMERGENCY PROVIDER REPORT REPORT#:[id number] REPORT STATUS: Signed DATE:10/29/18 TIME: 2230 PATIENT: THELMA ARTEAGA UNIT #: [id number] ROOM/BED: AGE: 52 SEX: M PCP PHYS: DOES_NOT KNOW SERVICE AUTHOR: Liliya Phillips * ALL edits or amendments must be made on the [employer]/computer document * HPI-Extremity Prob Lower General Confirmed Patient Yes Patient Type New patient Initial Greet Date/Time 10/29/182157 Assumed Care at Time 2230 Date 10/29/[address] Knapp Presentation Chief Complaint "Requesting to have the cast rem ioana of his left leg" Hx Obtained From Patient Onset Occurred Days ago (5) Symptom Duration Since onset Free Text HPI Notes Free Text HPI Notes The patient presented to the ER wanting his cast removed which was placed by an orthopedic surgeon 5 days ag o, the patient reports that he got it wet and wants it removed, he reports that he does have an appointment with his orthopedic on Wednesday morning. Past Medical History - Adult Stated Complaint WATER GOT INTO CAST LEFT LEG Allergies Coded Allergies: No Known Allergies (10/29/18) Home Medications Reported Medications No Known Home Medications Smoking status for patients 13 years old or olde r: Never Smoker Physical Exam Vital Signs Vital Signs First Documented: Result Date Time Pulse Ox 95 10/29 2157 B/P 137/89 10/29 2157 B/P Mean 105 10/29 2157 O2 Delivery Room air 10/29 2157 Temp 98.3 10/29 2157 Pulse 92 10/29 2157 Resp 16 10/29 2157 Last Documented: Result Date Time Pulse Ox 95 10/29 2157 B/P 137/89 10/29 2157 B/P Mean 105 10/29 2157 O2 Delivery Room air 10/29 2157 Temp 98.3 10/29 2157 Pulse 92 10/29 2157 Resp 10/29 Review of Vital Signs Reviewed Re-Evaluation MDM Free Text MDM Notes Additional Text The RN reported that the mary kan demanded that his cast should be removed in the ER. Re-Evaluation/Progress Re-Evaluation/Progress Text/Dict Note When I went in the room to evaluate patient. Mary kan reports he wants his cast removed. Informed patie nt that I would do an evaluation to make sure there is no medical emergency and if there is no medic al emergency present he will have to follow-up with his orthopedic carlos rgeon. At that time patient refused to answer any questions, or evaluation and walked o ut of the ER. Time of Re-Eval 2232 Patient Discharge Departure Vital Signs/Condition Vital Signs First Documented: Result Date Time Pulse Ox 95 10/29 2157 B/P 137/89 10/29 2157 B/P Mean 105 10/29 2157 O2 Delivery Room air 10/29 2157 Temp 98.3 10/29 2157 Pulse 92 10/29 2157 Resp 10/29 Last Documented: Result Date Time Pulse Ox 95 10/29 2157 B/P 137/89 10/29 2157 B/P Mean 105 10/29 2157 O2 Delivery Room air 10/29 2157 Temp 98.3 10/29 2157 Pulse 92 10/29 2157 Resp 16 10/29 2157 All vital signs available at the time of this en try have been reviewed. Clinical Impression Clinical Impression Primary Impression: Encounter for cast removal Disposition Decision Other )( Time 2234 )( Date 10/29/18 Text/Dict Note Patient refused exam as I did tell him that I wo uld not be able to remove his cast if there is no medical emergency, and he wa lked out of the ER Electronically Signed by Liliya Phillips on 10/10 03/29 at 1500 Electronically Signed by Blaine Ly MD on at 1814 RPT #:[id number] END OF REPORT 2018-05-26 Two-view chest Patient Name: THELMA ARTEAGA [facility] 14:20:00-00:00 : 1965; Age: 52 years Male MR: [id number] Study: Chest 2 views DX Order Time: 05/26/2018 14 :20 CDT Clinical Indication: - R05 C ough. Pt stated dry cough, SOB for 5-6 weeks no trauma or pain in chest. COMPARISON: December 2017. 10/11/2014. . 02/29/2012. FINDINGS: Views: 2 LUNGS: There is normal lung volume. There are no suspicious interstitial/airspace opacities. There are no pleural effusions. There is no pneumothorax. The pulmonary vasculature is normal. MEDIASTINUM: The cardiac silhouette is normal. T he trachea is midline. BONES: There are no clinical ly significant osseous abnormalities noted. Left acromioclavicular joint osteoarthritic change. IMPRESSION: No radiographic evidence of acute pulmonary dise ase. SL: [id number] 2018-01-03 Study: Chest 2 views DX [facility] 15:57:00-00:00 Clinical Indication: - cough for 10 weeks Comparison: Chest x-ray from 10/11/2014 FINDINGS: The cardiac silhou ette is normal in size. The lungs are clear and without consolidation or congestion. No pleural effusion or pneumothorax is seen. The osseous structures are unremarkable. IMPRESSION: No acute cardiopulmonary disease. SL: [id number] 2016-11-06 INDICATION: Stepped on nail 4 weeks ago, left 1s t toe pain [facility] 16:37:40-00:00 COMPARISON: None TECHNIQUE: Multiplanar, multisequence noncontras t imaging of the left foot. IV contrast: None. FINDINGS: Bones: No decreased T1 signa l or edema within the visualized bones to indicate the presence of acute osteomyelitis. No fracture or dislocation. Faint sclerosis in the tibial and fibular sesamoids and mi ld amount of fluid in the hallux-sesamoid joint complex. Soft tissues: Superficial ma rker is positioned over the plantar aspect of the first metatarsophalangeal joint. Subcutaneous tissues deep to the marker demonstrate no fluid collection or abnormal [place] us changes. Moderate amount of fluid present in the first subungual region. Mild third webspace bursitis. Muscles: No muscular edema, fluid collection or atrophy. Tendons: No focal tendon signal abnormality, or evidence for tenosynovitis. IMPRESSION: 1. No soft tissue abscess. No evidence for acute osteomyelitis of the foot. 2. Moderate amount of fluid in the first subungual region which could represent a hematoma or infected fluid. Please assess clinically. 3. Mild third webspace bursitis . 4. Mild degenerative changes of the hallux-sesam oid complex small effusion. SL: [id number] 2014-10-11 Name: THELMA ARTEAG[facility] 11:50:28-00:00 : 1965 SEX: M Ordering Physician: Dwayne Molina Chest CTA pul emb : Oct 11, 2014 11:50:00 AM. CLINICAL INDICATION: Shortness of Breath Comparison Examination: None TECHNIQUE: Sequential trans- axial images were obtained with a multi-detector helical CT after administration of IV contrast. 3-Dimensional MIP, coronal and sagittal reconstructions were obtained and viewed on the workstation. Contrast: 100 mL omnipaque Dose: The total exam DLP is 684.57 mGy-cm. FINDINGS: There are no lung nodules, i nterstitial lung disease, pleural effusions or pneumothorax. The central airway is normal. The main, right and left pul monary arteries are normal. There are no segmental or subsegmental pulmonary emboli noted. There is no thoracic aortic dissection or aneury sm. The heart is unremarkable and there is no perica rdial effusion. There is no mediastinal or axillary lymphadenopa thy or masses. The visualized upper abdominal images are unrem arkable. The visualized osseous structures are unremarkab le. IMPRESSION: 1. No CT evidence of pulmonary embolism. 2. The lungs are clear. SL: 24 2014-10-11 Name: THELMA ARTEAGA [facility] 10:35:31-00:00 : 1965 SEX: M Ordering Physician: Dwayne Molina Chest 1view : Oct 11, 2014 10:18:00 AM. CLINICAL INDICATION: Chest pain Comparison Examination: October 10, 2014 FINDINGS: This portable AP chest radio graph shows normal lung volumes without interstitial opacities, pleural effusions or pneumothorax. The cardiomediastinal contours are normal on this AP view. There are no clinically significant osseous abno rmalities noted. IMPRESSION: No acute cardiopulmonary abnormality. SL: 24 2014-10-10 Name: THELMA ARTEAGA [facility] 13:19:05-00:00 : 1965 SEX: M Ordering Physician: Clarissa Child Chest 2 views : Oct 10, 2014 01:09:00 PM. CLINICAL INDICATION: cough Comparison Examination: October 29, 2012 FINDINGS: PA and lateral chest radiogr aphs show normal lung volumes without consolidation, edema, pleural effusions or pneumothorax. The cardiomediastinal contours are normal. There are no clinically significant osseous abnormalities noted. IMPRESSION: Normal chest radiograph. SL: 24
[2022-10-07] MEDS ORDERED: LIDOCAINE 1% MPF 30 ML VIAL ONE (07:43)
[2022-10-07] MEDS ORDERED: Phenylephrine HCl 10 MG/ML 1 ML VIAL ONE (07:43)
--- NOTE | 2022-10-07 09:22 | EDPHYS ---
Physician Documentation [facility] Name: Wolf Potter Age: 56 yrs Sex: Male : 1965 Arrival Date: 10/07/2022 Time: 07:07 Bed 5 Private MD: ED Physician Vini Cool HPI: 10/07 07:56 This 56 yrs old Male presents to ER via Ambulatory with complaints of Penile Problem. ms3 07:56 56-year-old male with past medical history of arthritis, hypercholesterolemia, ms3 diabetes, PTSD presents for priapism. Patient states he injected his penis at 11:30 PM with Triflex. Patient states his discomfort is currently a 10/10 described as throbbing. Patient denies alleviating or inciting factors.. Historical: - Allergies: 07:21 Codeine; aa5 - PMHx: 07:21 Arthritis; Hypercholesterolemia; Diabetes mellitus; PTSD; aa5 - PSHx: 07:21 rodney knee; ankle; nose; aa5 07:21 shoulder; aa5 - Immunization history:: Adult Immunizations unknown. - Social history:: Smoking status: Patient denies any tobacco usage or history of. ROS: 07:56 Constitutional: Negative for fever, and chills. Neck: Negative for injury, pain, and ms3 swelling, Cardiovascular: Negative for chest pain, and palpitations. Respiratory: Negative for shortness of breath, cough, wheezing, and pleuritic chest pain, Abdomen/GI: Negative for abdominal pain, nausea, vomiting, diarrhea, and constipation. 07:56 Skin: Negative for injury, rash, and discoloration. 07:56 : Positive for penile pain, Priapism. 07:56 All other systems are negative. Exam: 07:56 Constitutional: This is a well developed, well nourished patient who is awake, alert, ms3 and in no acute distress. Head/Face: Normocephalic, atraumatic. Chest/axilla: Normal chest wall appearance and motion. Nontender with no deformity. Cardiovascular: Regular rate and rhythm with a normal S1 and S2. No gallops, murmurs, or rubs. Normal PMI, no JVD. No pulse deficits. Respiratory: Lungs have equal breath sounds bilaterally, clear to auscultation and percussion. No rales, rhonchi or wheezes noted. No increased work of breathing, no retractions or nasal flaring. Abdomen/GI: Soft, non-tender, with normal bowel sounds. No distension or tympany. No guarding or rebound. No evidence of tenderness throughout. 07:56 : Male external genitalia: Priapism, Left curvature of penis. Vital Signs: 07:12 BP 174 / 101; Pulse 85; Resp 20 S; Temp 98(O); Pulse Ox 100% on R/A; Weight 99.79 kg aa5 (R); Height 5 ft. 10 in. (R); 08:16 BP 151 / 98; Pulse 103; Resp 17 S; Pulse Ox 96% on R/A; aa5 07:12 Body Mass Index 31.57 (99.79 kg, 177.8 cm) aa5 MDM: 07:58 Differential diagnosis: Priapism vs medication adverse effect vs htn. ms3 08:00 ED course: Penis aspiration of bilateral sides with injection of 500 mcg of ms3 Phenylepherine.. 08:05 Patient medically screened. ms3 08:25 ED course: Discussed case with Dr Schmidt and he will see patient.. ms3 09:00 ED course: Patient states he is having detumescence. Dr Schmidt in the ED to see ms3 patient at this time.. 09:18 Data reviewed: vital signs, nurses notes, and as a result, I will discharge patient. ms3 Management of patient was discussed with the following: Intellectual Property Counsel: Urology- Dr Schmidt. I considered the following discharge prescriptions or medication management in the emergency department Medications were administered in the Emergency Department. See MAR. Counseling: I had a detailed discussion with the patient and/or guardian regarding the historical points, exam findings, and any diagnostic results supporting the discharge/admit diagnosis, the need for outpatient follow up, to return to the emergency department if symptoms worsen or persist or if there are any questions or concerns that arise at home. ED course: Dr. Schmidt recommends 30 minutes observation. Patient stating he would like to be discharged at this time. Return precautions discussed with patient to include priapism, worsening symptoms, or any other concerns. Patient understands agrees with plan. All questions were answered. Patient follow-up with his urologist in 2 to 3 days. Administered Medications: 07:45 Drug: Lidocaine Infiltration (1 %) 10 ml {Note: To penis, administered by MD .} Volume: rs5 20 ml; Route: Infiltration; 07:45 Drug: phenylephrine (PF) 1 mg {Note: To penis, administered by MD.} Route: IV; Rate: rs5 calculated rate; Site: Other; Disposition Summary: 10/07/22 09:21 Discharge Ordered Location: Home ms3 Condition: Stable ms3 Diagnosis - Priapism, unspecified ms3 - Essential (primary) hypertension ms3 Followup: ms3 - With: Private Physician - When: 2 - 3 days - Reason: Recheck today's complaints Discharge Instructions: - Discharge Summary Sheet ms3 - Hypertension, Adult ms3 - Priapism ms3 Forms: - Medication Reconciliation Form ms3 - Thank You Letter ms3 - Antibiotic Education ms3 - Prescription Opioid Use ms3 - Patient Portal Instructions ms3 - Leadership Thank You Letter ms3 Signatures: Naya Mathews RN RN aa5 Vini Cool DO DO ms3 Compa Portillo RN RN rs5 Corrections: (The following items were deleted from the chart) 07:21 PMHx: Fibromyalgia; aa5 aa5
--- NOTE | 2022-10-07 09:22 | ER ---
Nurse's Notes [facility] Name: Wolf Potter Age: 56 yrs Sex: Male : 1965 Arrival Date: 10/07/2022 Time: 07:07 Bed 5 Private MD: Diagnosis: Priapism, unspecified;Essential (primary) hypertension Presentation: 10/07 07:12 Chief complaint: Chief complaint: Patient states: penile erection since 2330 yesterday. aa5 07:12 Acuity: MANDA 3 aa5 07:12 Coronavirus screen: At this time, the client does not indicate any symptoms associated aa5 with coronavirus-19. Ebola Screen: Patient denies travel to an Ebola-affected area in the 21 days before illness onset. Initial Sepsis Screen: Does the patient meet any 2 criteria? No. Patient's initial sepsis screen is negative. Does the patient have a suspected source of infection? No. Patient's initial sepsis screen is negative. Risk Assessment: Do you want to hurt yourself or someone else? Patient reports no desire to harm self or others. Onset of symptoms was October 06, 2022 at 23:30. 07:12 Method Of Arrival: Ambulatory aa5 Historical: - Allergies: 07:21 Codeine; aa5 - PMHx: 07:21 Arthritis; Hypercholesterolemia; Diabetes mellitus; PTSD; aa5 - PSHx: 07:21 rodney knee; ankle; nose; aa5 07:21 shoulder; aa5 - Immunization history:: Adult Immunizations unknown. - Social history:: Smoking status: Patient denies any tobacco usage or history of. Screenin:12 [facility] ED Fall Risk Assessment (Adult) History of falling in the last 3 months, aa5 including since admission No falls in past 3 months (0 pts) Confusion or Disorientation No (0 pts) Intoxicated or Sedated No (0 pts) Impaired Gait No (0 pts) Mobility Assist Device Used No (0 pt) Altered Elimination No (0 pt) Score/Fall Risk Level 0 - 2 = Low Risk Oriented to surroundings, Maintained a safe environment, Educated pt \T\ family on fall prevention, incl call for assistance when getting out of bed. Abuse screen: Denies threats or abuse. Nutritional screening: No deficits noted. Tuberculosis screening: No symptoms or risk factors identified. Assessment: 07:12 General: Appears uncomfortable, Behavior is calm, cooperative. Pain: Complains of pain aa5 in penis. Neuro: Level of Consciousness is awake, alert, obeys commands, Oriented to person, place, time, situation. Cardiovascular: Patient's skin is warm and dry. Respiratory: Airway is patent Respiratory effort is even, unlabored, Respiratory pattern is regular, symmetrical. GI: No signs and/or symptoms were reported involving the gastrointestinal system. : Reports pain to penis. Reports erection since 2330 last night. EENT: No signs and/or symptoms were reported regarding the EENT system. Derm: Skin is pink, warm \T\ dry. Musculoskeletal: Range of motion: intact in all extremities. 07:45 Reassessment: Assisted provider with penile aspiration, pt tolerated well. rs5 08:16 Reassessment: Patient is alert, oriented x 3, equal unlabored respirations, skin aa5 warm/dry/pink. Patient states feeling better. Patient states symptoms have improved. 09:25 Reassessment: Patient is alert, oriented x 3, equal unlabored respirations, skin aa5 warm/dry/pink. General: Appears comfortable. Vital Signs: 07:12 BP 174 / 101; Pulse 85; Resp 20 S; Temp 98(O); Pulse Ox 100% on R/A; Weight 99.79 kg aa5 (R); Height 5 ft. 10 in. (R); 08:16 BP 151 / 98; Pulse 103; Resp 17 S; Pulse Ox 96% on R/A; aa5 07:12 Body Mass Index 31.57 (99.79 kg, 177.8 cm) aa5 ED Course: 07:08 Patient arrived in ED. rg4 07:12 Arm band placed on Patient placed in an exam room, on a stretcher. aa5 07:12 Patient has correct armband on for positive identification. Placed in gown. Bed in low aa5 position. Call light in reach. Side rails up X 1. Pulse ox on. NIBP on. 07:21 Vini Cool DO is Attending Physician. ms3 07:48 Triage completed. aa5 08:16 Naya Mathews, RN is Primary Nurse. aa5 08:47 ED physician to see patient. ap3 09:25 No provider procedures requiring assistance completed. Patient did not have IV access aa5 during this emergency room visit. Administered Medications: 07:45 Drug: Lidocaine Infiltration (1 %) 10 ml {Note: To penis, administered by MD .} Volume: rs5 20 ml; Route: Infiltration; 07:45 Drug: phenylephrine (PF) 1 mg {Note: To penis, administered by MD.} Route: IV; Rate: rs5 calculated rate; Site: Other; Medication: 08:18 VIS not applicable for this client. aa5 Outcome: 09:21 Discharge ordered by MD. ms3 09:25 Discharged to home ambulatory. aa5 09:25 Condition: improved 09:25 Discharge instructions given to patient, Instructed on discharge instructions, follow up and referral plans. Demonstrated understanding of instructions, follow-up care. 09:28 Patient left the ED. ms3 Signatures: Naya Mathews, RN RN [email or web address] Violette Cardona rg4 Sakshi Barragan RN RN ap3 Vini Cool DO DO ms3 Compa Portillo RN RN rs5 Corrections: (The following items were deleted from the chart) 07:21 07:21 PMHx: Fibromyalgia; aa5 aa5 07:36 07:21 Chief complaint: aa5 aa5 07:47 07:12 Chief complaint: aa5 aa5
[2022-10-07 09:33] VITALS: TEMP 98
[2022-10-07 09:34] VITALS: BP 151/98; O2SAT 96
--- NOTE | 2022-10-07 10:21 | CON ---
Reason For Consultation: Priapism. History Of Present Illness: A 56-year-old gentleman, presented via the emergency department with com plaints of an erection that had been present since around 11 p.m. yesterday night. He has been using Trimix and injecting between 0.5 and 0.6 cc to achieve an erection. He has used it only 5 or 6 time s in the last year, and he never had any issues with priapism before at the same dose. He does descr sushil a history of priapism with some upward and leftward curvature. He is under the care of another u rologist. This is the first time this has happened to him. He had been seen in the Emergency Depart ment where he had been given up to 500 mcg of phenylephrine along with some corporal aspiration witho ut resolution of the erection as of the time of my call at around 0815 to 0830 this morning. At the time, I visited with the patient approximately 30 minutes later in the Emergency Department, he noted the erection had begun to subside. It was not completely flaccid, but it was no longer firm and ere ct. Past Medical History: Hypercholesterolemia, DM2, arthritis, history of PTSD. Past Surgical History: Orthopedic surgeries. Social History: He denies any history of smoking. Specifically, he denies any use of cocaine or oth er recreational drug use. Physical Examination: The patient well-appearing, well-developed, well-nourished, no acute distress. Alert, awake, oriente d x3. No dyspnea or sign of respiratory distress. Comfortable and well-appearing. He was seated up right in the stretcher. Phallus circumcised and essentially mostly flaccid without any significant t garment manufacturer noted. Right corporal subcutaneous mild hematoma noted in the region of prior injection and l ikely aspiration site. He was able to move all extremities easily. Assessment And Recommendations: A 56-year-old gentleman with hypercholesterolemia, DM2, arthritis, a nd PTSD with ED on Trimix 0.55 cc injection resulting in priapism in the setting of Peyronie's diseas e with upward and leftward curvature. Since the erection has largely subsided as of the time of my v isit, I did not recommend any additional corporal aspiration or irrigation or phenylephrine injection at this time. Instead, I recommend aggressive hydration. Since he does not have an IV placed, I re commend he do this orally. I also recommended oxygen administration via nasal cannula to ensure comp lete resolution of the priapism. If he successfully remains without recurrence of the priapism over the course of the next 30 minutes, he may be discharged home. He has followup scheduled with his uro logist tomorrow. JOANNE/KATINA Voice ID: [id number] Report ID: [id number]
== END 2022-10-07 09:28 | disposition home or self-care (01) ==
LOC: ER 07:07
DX: N48.30 Priapism, unspecified (principal); I10 Essential (primary) hypertension; Z88.5 Allergy status to narcotic agent
CPT/HCPCS: J2371; J2001

== ENCOUNTER 2023-10-25 10:34 | Emergency (ER) | payer OTHER ==
[2023-10-25 11:08] LABS: Absolute Basophils 0.1 K/uL (0-0.5); Absolute Eosinophils 0.2 K/uL (0-0.5); Absolute Lymphocytes (CBC) 1.7 K/uL (0.7-4.9); Absolute Monocytes 0.6 K/uL (0.1-1.3); Absolute Neutrophil 3.5 K/uL (1.8-8.0); Basophils % 1.1 % (0-1.3); Eosinophils % 2.5 % (0-4.4); Hematocrit 47.6 % (39.6-49.0); Hemoglobin 16.1 g/dL (13.6-17.9); Lymphocytes % 28.6 % (15.3-44.8); MCH 30.8 pg (27.0-35.0); MCHC 33.8 g/dL (32.0-36.0); MPV 7.9 fL (7.6-11.3); Monocytes % 9.5 % (3.3-12.3); Neutrophils % 58.3 % (41.7-73.7); Platelets 236 thou/uL (152-406); RBC Red Blood Cell Count 5.23 M/uL (4.33-5.43); Red Cell Distribution Width 13.5 % (12.1-15.2)
--- NOTE | 2023-10-25 13:10 | RAD REPORT ---
EXAM: Soft Tissue Neck W/Contr INDICATION: [facility] MAIN no dysphagia;Sore throat Bed Name: 13 TECHNIQUE: Helical CT examination of the neck with IV contrast. Sagittal and coronal reformations wer e generated. This exam was performed according to our departmental dose-optimization program, which includes automated exposure control, adjustment of the mA and/or kV according to patient size and/or use of iterative reconstruction technique. COMPARISON: None. FINDINGS: Mucosal spaces: Nasopharynx, oropharynx, oral cavity, larynx and hypopharynx are normal. No suspiciou s masses. Epiglottis is normal in configuration. True vocal cords cords are normally situated. Piriform sinuses are well-aerated. Lymph Nodes: No pathologic appearing cervical lymph nodes. Salivary Glands: Unremarkable. Thyroid Gland: Normal Included Intracranial Structures: Normal Included Orbits: Normal Paranasal Sinuses: Predominantly clear Tympanomastoid Cavities: Normal Vascular Structures: Normal Osseous Structures: No acute osseous abnormality. Included Lung Apices: Normal IMPRESSION: Normal contrast-enhanced CT of the neck.
[2023-10-25] MEDS ORDERED: KETOROLAC 30 MG/ML INJ ONE (13:48)
[2023-10-25] MEDS ORDERED: DIPHENHYDRAMINE 50 MG/ML VIAL ONE (13:49)
[2023-10-25] MEDS ORDERED: METOCLOPRAMIDE 10 MG/2mL INJ ONE (13:49)
[2023-10-25] MEDS ORDERED: NA CHLORIDE 0.9% 1,000 ML ONE (13:49)
--- NOTE | 2023-10-25 15:14 | RAD REPORT ---
EXAM: CT brain without contrast HISTORY: Headache COMPARISON: None TECHNIQUE: Multiple contiguous axial images were obtained and a CT of the brain without contrast. Sag ittal and coronal reformats were performed. FINDINGS: No evidence of hydrocephalus, intracranial hemorrhage, or extra-axial fluid collection. The brain is normal in morphology. The calvarium is intact. The visualized paranasal sinuses and mastoid air cells are essentially clear . IMPRESSION: No evidence of acute intracranial abnormality.
--- NOTE | 2023-10-25 15:40 | EDPHYS ---
Physician Documentation [facility] Name: Wolf Potter Age: 57 yrs Sex: Male : 1965 Arrival Date: 10/25/2023 Time: 10:34 Bed 13 Private MD: ED Physician Jaden Serrano HPI: 10/24 10:56 This 57 yrs old Male presents to ER via Ambulatory with complaints of Difficulty sb4 Swallowing. 10:56 The patient presents with dysphagia, of both solids and liquids. The patient describes sb4 throat pain as constant. Onset: The symptoms/episode began/occurred 2 week(s) ago. Modifying factors: The symptoms are alleviated by nothing, the symptoms are aggravated by nothing, Patient's oral intake status: good Denies contact with similarly ill indivduals. Associated signs and symptoms: The patient has no apparent associated signs or symptoms. The patient has not experienced similar symptoms in the past. The patient has been recently seen by a physician: [place] [facility], with different complaint(s). Historical: - Allergies: 10:37 Codeine; ll1 - PMHx: 10:37 Arthritis; diabetes mellitus; Hypercholesterolemia; PTSD; ll1 - PSHx: 10:37 Ankle; BIBI knee; Nose; Shoulder; ll1 - Immunization history:: Adult Immunizations up to date. - Infectious Disease History:: Denies. - Social history:: Smoking status: Patient denies any tobacco usage or history of. ROS: 10:56 Constitutional: Negative for fever, chills, and weight loss, sb4 10:56 ENT: Positive for difficulty swallowing, sore throat, 10:56 Neuro: Positive for headache, 10:56 All other systems are negative, Exam: 10:56 Constitutional: This is a well developed, well nourished patient who is awake, alert, sb4 and in no acute distress. Head/Face: Normocephalic, atraumatic. Eyes: Extra-ocular motions intact. Periorbital areas with no swelling, redness, or edema. Cardiovascular: Regular rate and rhythm with a normal S1 and S2. Skin: Warm, dry with normal turgor. Normal color with no rashes, no lesions, and no evidence of cellulitis. MS/ Extremity: Pulses equal, no cyanosis. Neurovascular intact. Full, normal range of motion. 10:56 ENT: Posterior pharynx: Tonsils: with erythema, with exudate, no enlargement, Vital Signs: 10:43 BP 139 / 100; Pulse 79; Resp 18; Temp 98.2; Pulse Ox 98% ; Weight 93.89 kg; Height 5 ll1 ft. 10 in. ; Pain 5/10; 12:34 BP 151 / 96; Pulse 65; Resp 18; Pulse Ox 100% ; mb9 13:44 BP 139 / 92; Pulse 68; Resp 16; Pulse Ox 99% on R/A; me1 13:44 BP 127 / 85; Pulse 66; Resp 15; Pulse Ox 99% ; me1 15:00 BP 134 / 86; Pulse 67; Resp 15; Pulse Ox 98% ; me1 15:02 Pain 5/10; me1 15:02 Pain 5/10; me1 15:02 Pain 5/10; me1 10:43 Body Mass Index 29.70 (93.89 kg, 177.8 cm) ll1 10:43 Pain Scale: Adult ll1 15:02 Pain Scale: Adult me1 15:02 Pain Scale: Adult me1 15:02 Pain Scale: Adult me1 MDM: 10:43 Patient medically screened. sb4 14:33 Data reviewed: vital signs, nurses notes, lab test result(s), radiologic studies, and sb4 as a result, I will discharge patient. Historians other than the Patient: Spouse/Significant Other: . Care significantly affected by the following chronic conditions: Diabetes, Hypertension. Counseling: I had a detailed discussion with the patient and/or guardian regarding the historical points, exam findings, and any diagnostic results supporting the discharge/admit diagnosis, the presence of at least one elevated blood pressure reading (>120/80) during this emergency department visit, lab results, radiology results, the need for outpatient follow up, a invasive physician, a neurologist, to return to the emergency department if symptoms worsen or persist or if there are any questions or concerns that arise at home. 10/24 10:55 Order name: CBC with Diff; Complete Time: 11:15 sb4 10/24 10:55 Order name: BMP; Complete Time: 11:22 sb4 10/24 10:55 Order name: Strep sb4 10/24 11:25 Order name: Throat Culture EDMS 10/24 10:55 Order name: CT Soft Tissue Neck W/contr; Complete Time: 13:15 sb4 10/24 13:36 Order name: Head Brain Wo Cont CT; Complete Time: 15:15 sb4 10/24 10:55 Order name: IV Start; Complete Time: 11:04 sb4 Administered Medications: 13:56 Drug: NS 0.9% IV 1000 ml IV at 1 bolus Per protocol; 1000 mL bolus Route: IV; Rate: 1 me1 bolus; Site: left antecubital; 15:02 Follow up: Response: No adverse reaction; IV Status: Completed infusion; IV Intake: me1 1000ml 13:57 Drug: Ketorolac IVP 30 mg IVP once Route: IVP; Site: left antecubital; me1 15:02 Follow up: Pain 5/10 Adult; Response: No adverse reaction; Pain is decreased me1 13:57 Drug: metoCLOPramide IVP 10 mg IVP once; over 1 to 2 minutes Route: IVP; Site: left me1 antecubital; 15:02 Follow up: Pain 5/10 Adult; Response: No adverse reaction; Pain is decreased me1 13:57 Drug: diphenhydrAMINE IVP 25 mg IVP once Route: IVP; Site: left antecubital; me1 15:02 Follow up: Pain 5/10 Adult; Response: No adverse reaction; Pain is decreased me1 Disposition: 17:43 Co-signature as Attending Physician, Jaden Serrano MD. rn Disposition Summary: 10/25/23 15:39 Discharge Ordered Notes: Location: Home sb4 Problem: an ongoing problem sb4 Symptoms: have improved sb4 Condition: Stable sb4 Diagnosis - Acute pharyngitis, unspecified sb4 - Dysphagia sb4 - Persistent migraine sb4 Followup: sb4 - With: Anjum Cannon MD - When: As needed - Reason: Further diagnostic work-up Followup: sb4 - With: Jonathan Hall MD - When: As needed - Reason: Further diagnostic work-up Discharge Instructions: - Discharge Summary Sheet sb4 - Dysphagia sb4 - Pharyngitis sb4 - Migraine Headache, [id number] sb4 Forms: - Antibiotic Education sb4 - Patient Portal Instructions sb4 - Leadership Thank You Letter sb4 Prescriptions: - Amoxicillin 875 mg Oral Tablet - take 1 tablet ORAL route every 12 hours for 10 days; 20 tablet; Refills: 0, sb4 Product Selection Permitted - Prednisone 20 mg Oral Tablet - take 2 tablets ORAL route once daily for 5 days; 10 tablet; Refills: 0, Product sb4 Selection Permitted Signatures: Dispatcher [employer] Jaden Wright MD MD rn Lewis, Lynsay RN RN ll1 Zelda Patel PA-C PAJeison sb4 Samantha Lewis RN RN mb9 Shirlene Burdick RN RN me1
--- NOTE | 2023-10-25 15:40 | ER ---
Nurse's Notes [facility] Name: Wolf Potter Age: 57 yrs Sex: Male : 1965 Arrival Date: 10/25/2023 Time: 10:34 Bed 13 Private MD: Diagnosis: Acute pharyngitis, unspecified;Dysphagia;Persistent migraine Presentation: 10/24 10:43 Chief complaint: Patient states: Difficulty swallowing and pressure to throat area for ll1 10 days. No known fever. Coronavirus screen: Client denies travel out of the [place] in the last 14 days. At this time, the client does not indicate any symptoms associated with coronavirus-19. Ebola Screen: Patient denies travel to an Ebola-affected area in the 21 days before illness onset. Initial Sepsis Screen: Does the patient meet any 2 criteria? No. Patient's initial sepsis screen is negative. Does the patient have a suspected source of infection? No. Patient's initial sepsis screen is negative. Risk Assessment: Do you want to hurt yourself or someone else? Patient reports no desire to harm self or others. Onset of symptoms was October 15, 2023. 10:43 Method Of Arrival: Ambulatory ll1 10:43 Acuity: MANDA 4 ll1 10:56 Acuity: MANDA 3 mb9 Triage Assessment: 10:45 General: Appears uncomfortable, Behavior is calm, cooperative, appropriate for age. ll1 Pain: Complains of pain in throat Pain currently is 5 out of 10 on a pain scale. Quality of pain is described as aching, pressure. EENT: Reports pain when swallowing pressure to throat area. Neuro: Reports headache. GI: Reports nausea. Historical: - Allergies: 10:37 Codeine; ll1 - PMHx: 10:37 Arthritis; diabetes mellitus; Hypercholesterolemia; PTSD; ll1 - PSHx: 10:37 Ankle; BIBI knee; Nose; Shoulder; ll1 - Immunization history:: Adult Immunizations up to date. - Infectious Disease History:: Denies. - Social history:: Smoking status: Patient denies any tobacco usage or history of. Screenin:[address] [facility] ED Fall Risk Assessment (Adult) History of falling in the last 3 months, mb9 including since admission No falls in past 3 months (0 pts) Confusion or Disorientation No (0 pts) Intoxicated or Sedated No (0 pts) Impaired Gait No (0 pts) Mobility Assist Device Used No (0 pt) Altered Elimination No (0 pt) Score/Fall Risk Level 0 - 2 = Low Risk Oriented to surroundings, Maintained a safe environment, Educated pt \T\ family on fall prevention, incl call for assistance when getting out of bed. Abuse screen: Denies threats or abuse. Nutritional screening: No deficits noted. Tuberculosis screening: No symptoms or risk factors identified. Assessment: 10:53 General: Appears in no apparent distress. Behavior is calm, cooperative. Pain: mb9 Complains of pain in head Pain does not radiate. Quality of pain is described as throbbing, Pain began gradually, Is continuous. Neuro: Beckford Agitation-Sedation Scale (RASS): 0 - Alert and Calm Level of Consciousness is awake, alert, obeys commands, Oriented to person, place, time, situation, Appropriate for age Reports headache parietal area. Neuro: Reports dysphagia . Cardiovascular: Patient's skin is warm and dry. Respiratory: Airway is patent Respiratory effort is even, unlabored, Respiratory pattern is regular, symmetrical. GI: Abdomen is round non-distended, Bowel sounds present X 4 quads. Abd is soft and non tender X 4 quads. : No signs and/or symptoms were reported regarding the genitourinary system. EENT: No signs and/or symptoms were reported regarding the EENT system. Derm: Skin is pink, warm \T\ dry. Musculoskeletal: Range of motion: intact in all extremities. 13:35 General: Appears uncomfortable, well groomed, well developed, well nourished, Behavior me1 is calm, cooperative, appropriate for age, Reports Difficulty swallowing and pressure to throat area for 10 days. No known fever. Pain: Complains of pain in throat Pain does not radiate. Pain currently is 7 out of 10 on a pain scale. Quality of pain is described as pressure, throbbing, Pain began gradually, Is continuous. Neuro: Level of Consciousness is awake, alert, obeys commands, Oriented to person, place, time, situation, Appropriate for age Reports headache parietal area. Cardiovascular: Patient's skin is warm and dry. Respiratory: Airway is patent Respiratory effort is even, unlabored, Respiratory pattern is regular, symmetrical. GI: No signs and/or symptoms were reported involving the gastrointestinal system. : No signs and/or symptoms were reported regarding the genitourinary system. EENT: Reports pain in throat. Derm: Skin is intact, is healthy with good turgor, Skin is pink, warm \T\ dry. Musculoskeletal: No signs and/or symptoms reported regarding the musculoskeletal system. Vital Signs: 10:43 BP 139 / 100; Pulse 79; Resp 18; Temp 98.2; Pulse Ox 98% ; Weight 93.89 kg; Height 5 ll1 ft. 10 in. ; Pain 5/10; 12:34 BP 151 / 96; Pulse 65; Resp 18; Pulse Ox 100% ; mb9 13:44 BP 139 / 92; Pulse 68; Resp 16; Pulse Ox 99% on R/A; me1 13:44 BP 127 / 85; Pulse 66; Resp 15; Pulse Ox 99% ; me1 15:00 BP 134 / 86; Pulse 67; Resp 15; Pulse Ox 98% ; me1 15:02 Pain 5/10; me1 15:02 Pain 5/10; me1 15:02 Pain 5/10; me1 10:43 Body Mass Index 29.70 (93.89 kg, 177.8 cm) ll1 10:43 Pain Scale: Adult ll1 15:02 Pain Scale: Adult me1 15:02 Pain Scale: Adult me1 15:02 Pain Scale: Adult me1 ED Course: 10:37 Patient arrived in ED. ra3 10:37 Arm band placed on Patient placed in an exam room, on a stretcher. ll1 10:40 Zelda Patel PA-C is PHCP. sb4 10:40 Jaden Serrano MD is Attending Physician. sb4 10:44 Samantha Lewis RN is Primary Nurse. mb9 10:44 Placed in gown. Bed in low position. Call light in reach. Side rails up X 1. Provided mb9 Education on: press call light if needing anything. Client placed on continuous cardiac and pulse oximetry monitoring. NIBP monitoring applied. 10:45 Triage completed. ll1 10:55 No provider procedures requiring assistance completed. mb9 11:04 BMP Sent. mb9 11:04 CBC with Diff Sent. mb9 11:04 Strep Sent. mb9 11:04 Initial lab(s) drawn, by me, sent to lab. Inserted saline lock: 20 gauge in left mb9 antecubital area, using aseptic technique. Blood collected. Flushed with 10 mL NS. 11:56 CT Soft Tissue Neck W/contr In Process Unspecified. EDMS 13:46 Head Brain Wo Cont CT In Process Unspecified. EDMS 14:00 Report given to DISHA Garber. mb9 15:01 Shirlene Burdick RN is Primary Nurse. me1 15:39 Anjum Cannon MD is Referral Physician. sb4 15:39 Jonathan Hall MD is Referral Physician. sb4 15:54 IV discontinued, intact, bleeding controlled, No redness/swelling at site. Pressure me1 dressing applied. Administered Medications: 13:56 Drug: NS 0.9% IV 1000 ml IV at 1 bolus Per protocol; 1000 mL bolus Route: IV; Rate: 1 me1 bolus; Site: left antecubital; 15:02 Follow up: Response: No adverse reaction; IV Status: Completed infusion; IV Intake: me1 1000ml 13:57 Drug: Ketorolac IVP 30 mg IVP once Route: IVP; Site: left antecubital; me1 15:02 Follow up: Pain 5/10 Adult; Response: No adverse reaction; Pain is decreased me1 13:57 Drug: metoCLOPramide IVP 10 mg IVP once; over 1 to 2 minutes Route: IVP; Site: left me1 antecubital; 15:02 Follow up: Pain 5/10 Adult; Response: No adverse reaction; Pain is decreased me1 13:57 Drug: diphenhydrAMINE IVP 25 mg IVP once Route: IVP; Site: left antecubital; me1 15:02 Follow up: Pain 5/10 Adult; Response: No adverse reaction; Pain is decreased me1 Medication: 10:44 VIS not applicable for this client. mb9 Intake: 15:02 IV: 1000ml; Total: 1000ml. me1 Outcome: 15:39 Discharge ordered by . sb4 15:54 Discharged to home ambulatory, me1 15:54 Condition: stable 15:54 Discharge instructions given to patient, significant other, Instructed on discharge instructions, follow up and referral plans. medication usage, Demonstrated understanding of instructions, follow-up care, medications, Prescriptions given X 2, 15:55 Patient left the ED. me1 Signatures: Dispatcher [employer] EDMS Lai Maya RN RN ll1 Zelda Patel PA-C PAJeison sb4 Joshua, Samantha Gibson RN RN mb9 Shirlene Burdick RN RN me1 Poppy Vital ra3 Corrections: (The following items were deleted from the chart) 15:38 10:43 Chief complaint: Patient states: Difficulty swallowing and pressure to throat me1 area for 10 days. No known fever. 1
[2023-10-25 16:05] VITALS: TEMP 98.2
[2023-10-25 16:23] VITALS: BP 134/86; O2SAT 98
== END 2023-10-25 15:55 | disposition home or self-care (01) ==
LOC: ER 10:34
DX: J02.9 Acute pharyngitis, unspecified (principal); R13.10 Dysphagia, unspecified; G43.509 Persistent migraine aura without cerebral infarction, not intractable, without status migrainosus; E11.9 Type 2 diabetes mellitus without complications; E78.00 Pure hypercholesterolemia, unspecified
CPT/HCPCS: 87070; 85025; 80048; 36415; 87081; 70450; 70491; Q9967; J2765; J1200; J7030